=== PATIENT | female | born 1965 | race Caucasian/White ===

== ENCOUNTER 2016-06-01 21:34 | Emergency (ER) | payer BC ==
[2016-06-01 21:59] VITALS: RESP 16
[2016-06-01 23:10] LABS: Basophils # (A) 0.1 k/uL (0-0.2); Basophils % (A) 0 %; CH 27.7; CHCM 33.6; Eosinophils # (A) 0.1 k/uL (0-0.7); Eosinophils % (A) 1 %; HCT 40.1 % (34.0-46.0); HDW 2.99; HGB 13.1 gm/dL (11.4-16.0); Luc # (Auto) 0.25; Luc % (Auto) 2; Lymphocytes # (A) 1.9 k/uL (1.0-4.8); Lymphocytes % (A) 17 %; MCHC 32.6 g/dL (31.0-37.0); MCV 82.7 fL (80.0-100.0); Mean Platelet Volume 6.5; Monocytes # (A) 0.5 k/uL (0-1.0); Monocytes % (A) 4 %; Neutrophils # (A) 8.4 k/uL (1.3-7.7); Neutrophils % (A) 75 %; RBC 4.85 m/uL (3.80-5.40); RDW 14.3 % (11.5-15.5); WBC 11.2 k/uL (3.8-10.6); WBC (Perox) 11.61
[2016-06-01 23:11] LABS: Appearance,Urine Cloudy (Clear); Bilirubin,Urine Negative (Negative); Glucose,Urine (UA) 4+ (Negative); Ketones,Urine Negative (Negative); Leukocyte Esterase,Urine Negative (Negative); Mucus,Urine Moderate /hpf; Nitrite,Urine Negative (Negative); PH, Urine 5.5 (5.0-8.0); Particle Count 10520; Protein,Urine Trace (Negative); RBC,Urine 2 /hpf (0-5); Specific Gravity,Urine 1.023 (1.001-1.035); Squamous Epithelial Cell,Urine 5 /hpf (0-4); UA Billing (MACRO vs. MICRO) MICRO; Urobilinogen,Urine <2.0 mg/dL (<2.0); WBC,Urine 4 /hpf (0-5)
--- NOTE | 2016-06-01 23:17 | ED ---
General Adult HPI - General Source: patient, RN notes reviewed Mode of arrival: ambulatory Limitations: no limitations - History of Present Illness -: month(s) Consistency: constant Improves with: none Worsens with: other (Exertion) Associated Symptoms: other (Generalized fatigue) <Jeremy Steele - Last Filed: 06/01/16 23:14> <Jun Talavera - Last Filed: 06/02/16 00:42> - General Chief complaint: Recheck/Abnormal Lab/Rx Stated complaint: tired, weak Time Seen by Provider: 06/01/16 21:54 - History of Present Illness Initial comments: This patient is a 50-year-old woman who presents with complaint of generalized fatigue. She states she has been having these symptoms intermittently for months to years. She states that she had been doing a little bit better and then over the past approximately one week she has had recurrence of symptoms. She states that it caused her to miss work on Sunday and then she has had a few days where she had to work only partial shifts. When she was not feeling better today she had to leave work and come here. The patient is denying chest pain, dyspnea, diaphoresis, or focal weakness. (Jeremy Steele) - Related Data Home Medications Medication Instructions Recorded Confirmed Gabapentin [Neurontin] 300 mg PO QID 11/27/13 06/01/16 Lisinopril [Zestril] 10 mg PO DAILY 11/27/13 06/01/16 Ranitidine HCl [Zantac] 150 mg PO BID 11/27/13 06/01/16 metFORMIN HCL 1,000 mg PO BID 11/27/13 06/01/16 Albuterol Sulfate [Proventil Hfa] 1 - 2 puff INHALATION Q6HR PRN 12/29/15 Omeprazole 20 mg PO BID 12/29/15 06/01/16 Acetaminophen [Tylenol] 1,000 mg PO BID 02/01/16 06/01/16 Balsalazide Disodium [Colazal] 1,500 mg PO TID 02/01/16 06/01/16 Magnesium Chloride [Slow Mag] 128 mg PO DAILY 02/01/16 06/01/16 sitaGLIPtin [Januvia] 100 mg PO DAILY 02/01/16 06/01/16 Allergies Allergy/AdvReac Type Severity Reaction Status Date / Time No Known Allergies Allergy Verified 06/01/16 22:29 Review of Systems ROS Other: All systems not noted in ROS Statement are negative. Constitutional: Reports: weakness (Mild generalized weakness). Denies: fever, chills Eyes: Denies: vision change Respiratory: Denies: cough, dyspnea Cardiovascular: Denies: chest pain, palpitations, dyspnea on exertion Endocrine: Reports: fatigue Gastrointestinal: Denies: abdominal pain, vomiting, diarrhea Genitourinary: Denies: dysuria, hematuria Musculoskeletal: Denies: back pain Skin: Denies: rash Neurological: Denies: headache, weakness, numbness <Jeremy Steele - Last Filed: 06/01/16 23:14> ROS Other: All systems not noted in ROS Statement are negative. <Jun Talavera - Last Filed: 06/02/16 00:42> ROS Statement: Those systems with pertinent positive or pertinent negative responses have been documented in the HPI. Past Medical History Past Medical History: Diabetes Mellitus, GERD/Reflux, Hypertension, Osteoarthritis (OA), Sleep Apnea/CPAP/BIPAP Additional Past Medical History / Comment(s): hx migraines, bordline high bp, neuropathy, no CPAP, crohns disease, History of Any Multi-Drug Resistant Organisms: None Reported Past Surgical History: Adenoidectomy, Appendectomy, Cholecystectomy, Tonsillectomy, Tubal Ligation Additional Past Surgical History / Comment(s): nasal surgery(Fx), Past Anesthesia/Blood Transfusion Reactions: Motion Sickness Past Psychological History: Anxiety Smoking Status: Former smoker Past Alcohol Use History: Rare Additional Past Alcohol Use History / Comment(s): quit smoking 2014, smoked since age 15, < 1 PPD Past Drug Use History: None Reported - Past Family History Mother Family Medical History: No Reported History <Jeremy Steele - Last Filed: 06/01/16 23:14> General Exam Limitations: no limitations General appearance: alert, in no apparent distress, obese Head exam: Present: atraumatic, normocephalic Eye exam: Present: normal appearance. Absent: scleral icterus, conjunctival injection ENT exam: Present: normal oropharynx Neck exam: Present: normal inspection Respiratory exam: Present: normal lung sounds bilaterally. Absent: respiratory distress, wheezes, rales, rhonchi, stridor Cardiovascular Exam: Present: regular rate, normal rhythm, normal heart sounds. Absent: systolic murmur, diastolic murmur, rubs, gallop GI/Abdominal exam: Present: soft. Absent: distended, tenderness, guarding, rebound, mass Extremities exam: Present: normal inspection, normal capillary refill. Absent: pedal edema, calf tenderness Back exam: Present: normal inspection. Absent: CVA tenderness (R), CVA tenderness (L) Neurological exam: Present: alert. Absent: motor sensory deficit Skin exam: Present: warm, dry, intact, normal color. Absent: rash <Jeremy Steele - Last Filed: 06/01/16 23:14> EKG Findings - EKG Results: EKG: interpreted by ERLINDA BRISENO, sinus rhythm (Rate 98 bpm), normal axis, normal QRS, normal ST/T, no acute changes <Jeremy Steele - Last Filed: 06/01/16 23:14> Medical Decision Making - Lab Data Result diagrams: 06/01/16 22:45 <Jeremy Steele - Last Filed: 06/01/16 23:14> - Lab Data Result diagrams: 06/01/16 22:45 06/01/16 22:45 <Jun Talavera - Last Filed: 06/02/16 00:42> - Lab Data Lab Results 06/01/16 06/01/16 06/01/16 Range/Units 22:45 22:45 22:45 WBC 11.2 H (3.8-10.6) k/uL RBC 4.85 (3.80-5.40) m/uL Hgb 13.1 (11.4-16.0) gm/dL Hct 40.1 (34.0-46.0) % MCV 82.7 (80.0-100.0) fL MCH 27.0 (25.0-35.0) pg MCHC 32.6 (31.0-37.0) g/dL RDW 14.3 (11.5-15.5) % Plt Count 340 (150-450) k/uL Neutrophils % 75 % Lymphocytes % 17 % Monocytes % 4 % Eosinophils % 1 % Basophils % 0 % Neutrophils # 8.4 H (1.3-7.7) k/uL Lymphocytes # 1.9 (1.0-4.8) k/uL Monocytes # 0.5 (0-1.0) k/uL Eosinophils # 0.1 (0-0.7) k/uL Basophils # 0.1 (0-0.2) k/uL Sodium 137 (137-145) mmol/L Potassium 4.4 (3.5-5.1) mmol/L Chloride 100 (98-107) mmol/L Carbon Dioxide 24 (22-30) mmol/L Anion Gap 13 mmol/L BUN 14 (7-17) mg/dL Creatinine 0.60 (0.52-1.04) mg/dL Est GFR (MDRD) Af Amer >60 (>60 ml/min/1.73 sqM) Est GFR (MDRD) Non-Af >60 (>60 ml/min/1.73 sqM) Glucose 175 H (74-99) mg/dL Plasma Lactic Acid Alcon (0.7-2.0) mmol/L Calcium 9.5 (8.4-10.2) mg/dL Magnesium 1.4 L (1.6-2.3) mg/dL Total Bilirubin 0.4 (0.2-1.3) mg/dL AST 22 (14-36) U/L ALT 34 (9-52) U/L Alkaline Phosphatase 102 (38-126) U/L Total Creatine Kinase 58 (30-135) U/L CK-MB (CK-2) 1.0 (0.0-2.4) ng/mL CK-MB (CK-2) Rel Index 1.7 Troponin I <0.012 (0.000-0.034) ng/mL NT-Pro-B Natriuret Pep pg/mL Total Protein 7.8 (6.3-8.2) g/dL Albumin 4.4 (3.5-5.0) g/dL TSH 2.050 (0.465-4.680) mIU/L Urine Color Urine Appearance (Clear) Urine pH (5.0-8.0) Ur Specific [place] (1.001-1.035) Urine Protein (Negative) Urine Glucose (UA) (Negative) Urine Ketones (Negative) Urine Blood (Negative) Urine Nitrate (Negative) Urine Bilirubin (Negative) Urine Urobilinogen (<2.0) mg/dL Ur Leukocyte Esterase (Negative) Urine RBC (0-5) /hpf Urine WBC (0-5) /hpf Ur Squamous Epith Cells (0-4) /hpf Urine Mucus (None) /hpf 06/01/16 06/01/16 06/01/16 Range/Units 22:45 22:45 22:45 WBC (3.8-10.6) k/uL RBC (3.80-5.40) m/uL Hgb (11.4-16.0) gm/dL Hct (34.0-46.0) % MCV (80.0-100.0) fL MCH (25.0-35.0) pg MCHC (31.0-37.0) g/dL RDW (11.5-15.5) % Plt Count (150-450) k/uL Neutrophils % % Lymphocytes % % Monocytes % % Eosinophils % % Basophils % % Neutrophils # (1.3-7.7) k/uL Lymphocytes # (1.0-4.8) k/uL Monocytes # (0-1.0) k/uL Eosinophils # (0-0.7) k/uL Basophils # (0-0.2) k/uL Sodium (137-145) mmol/L Potassium (3.5-5.1) mmol/L Chloride (98-107) mmol/L Carbon Dioxide (22-30) mmol/L Anion Gap mmol/L BUN (7-17) mg/dL Creatinine (0.52-1.04) mg/dL Est GFR (MDRD) Af Amer (>60 ml/min/1.73 sqM) Est GFR (MDRD) Non-Af (>60 ml/min/1.73 sqM) Glucose (74-99) mg/dL Plasma Lactic Acid Alcon 1.9 (0.7-2.0) mmol/L Calcium (8.4-10.2) mg/dL Magnesium (1.6-2.3) mg/dL Total Bilirubin (0.2-1.3) mg/dL AST (14-36) U/L ALT (9-52) U/L Alkaline Phosphatase (38-126) U/L Total Creatine Kinase (30-135) U/L CK-MB (CK-2) (0.0-2.4) ng/mL CK-MB (CK-2) Rel Index Troponin I (0.000-0.034) ng/mL NT-Pro-B Natriuret Pep 26 pg/mL Total Protein (6.3-8.2) g/dL Albumin (3.5-5.0) g/dL TSH (0.465-4.680) mIU/L Urine Color Dark Yellow Urine Appearance Cloudy H (Clear) Urine pH 5.5 (5.0-8.0) Ur Specific [place] 1.023 (1.001-1.035) Urine Protein Trace H (Negative) Urine Glucose (UA) 4+ H (Negative) Urine Ketones Negative (Negative) Urine Blood Negative (Negative) Urine Nitrate Negative (Negative) Urine Bilirubin Negative (Negative) Urine Urobilinogen <2.0 (<2.0) mg/dL Ur Leukocyte Esterase Negative (Negative) Urine RBC 2 (0-5) /hpf Urine WBC 4 (0-5) /hpf Ur Squamous Epith Cells 5 H (0-4) /hpf Urine Mucus Moderate H (None) /hpf Disposition <Jeremy Steele - Last Filed: 06/01/16 23:14> Time of Disposition: 00:41 <Jun Talavera - Last Filed: 06/02/16 00:42> Clinical Impression: Generalized weakness, Hypomagnesemia Disposition: HOME SELF-CARE Condition: Good Instructions: Weakness (ED) Referrals: Jeanine Peña MD [Primary Care Provider] - 1-2 days
[2016-06-01 23:22] LABS: ALT 34 U/L (9-52); AST 22 U/L (14-36); Alkaline Phosphatase 102 U/L (38-126); Anion Gap 13 mmol/L; Blood Urea Nitrogen 14 mg/dL (7-17); Calcium 9.5 mg/dL (8.4-10.2); Carbon Dioxide 24 mmol/L (22-30); Chloride 100 mmol/L (98-107); Glucose 175 mg/dL (74-99); Magnesium 1.4 mg/dL (1.6-2.3); Non-African American GFR(MDRD) >60 (>60 ml/min/1.73 sqM); Potassium 4.4 mmol/L (3.5-5.1); Sodium 137 mmol/L (137-145); Total Bilirubin 0.4 mg/dL (0.2-1.3); Total Protein 7.8 g/dL (6.3-8.2)
[2016-06-01 23:29] LABS: Creatine Kinase 58 U/L (30-135)
[2016-06-01 23:42] LABS: Troponin I <0.012 ng/mL (0.000-0.034)
[2016-06-01] MEDS: SODIUM CHLORIDE 0.9% 500 ML IV ONE (23:51)
[2016-06-01 23:55] VITALS: BP 120/56; PULSE 90; TEMP 98.4
--- NOTE | 2016-06-01 23:59 | XR ---
EXAMINATION TYPE: XR chest 1V portable DATE OF EXAM: 06/01/2016 10:58 PM COMPARISON: 12/29/2015. HISTORY: History of fatigue TECHNIQUE: Single frontal view of the chest is obtained. FINDINGS: Mild opacities noted in the right lung base and is suggestive of mild right-sided pleural effusion an d right basilar lung infiltrate and atelectasis. This could also be related to artifact from the supe rimposing breast tissue. Rest of the lungs are clear. The cardiac silhouette size is within normal limits. The osseous structures are intact. IMPRESSION: 1. Suspected mild right-sided pleural effusion and right basilar lung infiltrate and atelectasis.
[2016-06-02] MEDS: MAGNESIUM SULFATE-D5W PMX 1 GM in DEXTROSE/WATER 1 100ML.BAG IVPB ONE (00:22)
== END 2016-06-02 01:25 | disposition home or self-care (01) ==
LOC: EC 21:34
DX: R53.1 Weakness (principal); E83.42 Hypomagnesemia; E11.40 Type 2 diabetes mellitus with diabetic neuropathy, unspecified; I10 Essential (primary) hypertension; K21.9 Gastro-esophageal reflux disease without esophagitis; G47.30 Sleep apnea, unspecified; Z99.89 Dependence on other enabling machines and devices; Z79.899 Other long term (current) drug therapy; Z79.84 Long term (current) use of oral hypoglycemic drugs; Z87.891 Personal history of nicotine dependence
CPT/HCPCS: 36415; 71010; 80053; 81001; 82550; 82553; 83605; 83735; 83880; 84443; 84484; 85025; 93005; 96365; 99285

== ENCOUNTER → 2016-07-04 | Outpatient (CLI) | payer BC ==
--- NOTE | 2016-07-04 14:15 | XR ---
EXAMINATION TYPE: XR chest 2V DATE OF EXAM: 07/04/2016 2:08 PM COMPARISON: 06/01/2016 TECHNIQUE: PA and lateral views submitted. HISTORY: Abnormal chest x-ray FINDINGS: The lungs are clear and there is no pneumothorax, pleural effusion, or focal pneumonia. Heart size is stable. Degenerative change of the spine. IMPRESSION: 1. No acute process.
== END | disposition home or self-care (01) ==
LOC: RADXRMAIN 13:50
PROVIDERS: ATTEND Family Medicine
DX: R93.8 Abnormal findings on diagnostic imaging of other specified body structures (principal)
CPT/HCPCS: 71020

== ENCOUNTER 2016-07-26 17:37 | Emergency (ER) | payer BC, OTHER ==
[2016-07-26 18:02] VITALS: PULSE 82; RESP 20; TEMP 97.9
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
== END 2016-07-26 21:19 | disposition left against medical advice (07) ==
LOC: EC 17:37
DX: S09.90XA Unspecified injury of head, initial encounter (principal); S50.812A Abrasion of left forearm, initial encounter; S80.212A Abrasion, left knee, initial encounter; M54.2 Cervicalgia; E11.9 Type 2 diabetes mellitus without complications; K21.9 Gastro-esophageal reflux disease without esophagitis; E78.5 Hyperlipidemia, unspecified; I10 Essential (primary) hypertension; M19.90 Unspecified osteoarthritis, unspecified site; F41.9 Anxiety disorder, unspecified; Z87.891 Personal history of nicotine dependence; Z79.84 Long term (current) use of oral hypoglycemic drugs; Z79.899 Other long term (current) drug therapy; Z86.69 Personal history of other diseases of the nervous system and sense organs; V49.50XA Passenger injured in collision with unspecified motor vehicles in traffic accident, initial encounter; Y92.410 Unspecified street and highway as the place of occurrence of the external cause
CPT/HCPCS: 70450; 72125; 99284

== ENCOUNTER 2016-08-25 20:42 | Emergency (ER) | payer BC ==
[2016-08-25 21:02] VITALS: BP 154/81; PULSE 110; RESP 20
[2016-08-25] MEDS ORDERED: ACETAMINOPHEN TAB 500 MG TAB PO STA (21:03)
--- NOTE | 2016-08-25 21:23 | XR ---
EXAMINATION TYPE: XR chest 2V DATE OF EXAM: 08/25/2016 9:18 PM COMPARISON: 07/04/2016. HISTORY: Shortness of breath and congestion. TECHNIQUE: Frontal and lateral views of the chest are obtained. FINDINGS: There is no focal air space opacity, pleural effusion, or pneumothorax seen. The cardiac silhouette size is within normal limits. The osseous structures are intact. IMPRESSION: No acute cardiopulmonary process, unchanged from the prior.
--- NOTE | 2016-08-25 21:25 | ED ---
URI HPI - General Chief Complaint: Upper Respiratory Infection Stated Complaint: Upper Resp/Dizzy Time Seen by Provider: 08/25/16 21:03 Source: patient, RN notes reviewed, old records reviewed Mode of arrival: ambulatory Limitations: no limitations - History of Present Illness Initial Comments: This is a 51 year old female with chief complaint of sore thraot and congestion for 4 days. She states that a coworker is diagnosed with strep, therefore she is concerned. Patient reports she has had a fever, denies recent motrin or tylenol. Denies any nausea or vomiting. Patient denies any headache. - Related Data Home Medications Medication Instructions Recorded Confirmed Gabapentin [Neurontin] 300 mg PO QID 11/27/13 08/25/16 Lisinopril [Zestril] 10 mg PO DAILY 11/27/13 08/25/16 Ranitidine HCl [Zantac] 150 mg PO BID 11/27/13 08/25/16 metFORMIN HCL 1,000 mg PO BID 11/27/13 08/25/16 Omeprazole 20 mg PO BID 12/29/15 08/25/16 Acetaminophen [Tylenol] 1,000 mg PO BID 02/01/16 08/25/16 Balsalazide Disodium [Colazal] 1,500 mg PO TID 02/01/16 08/25/16 Magnesium Chloride [Slow Mag] 128 mg PO DAILY 02/01/16 08/25/16 sitaGLIPtin [Januvia] 100 mg PO DAILY 02/01/16 08/25/16 Glimepiride [Amaryl] 4 mg PO AC-BRKFST 06/20/16 08/25/16 Previous Rx's Medication Instructions Recorded Azithromycin [Zithromax Z-pack] 250 mg PO DIRECTED #6 tab 08/25/16 Allergies Allergy/AdvReac Type Severity Reaction Status Date / Time No Known Allergies Allergy Verified 08/25/16 21:26 Review of Systems ROS Statement: Those systems with pertinent positive or pertinent negative responses have been documented in the HPI. ROS Other: All systems not noted in ROS Statement are negative. Past Medical History Past Medical History: Diabetes Mellitus, GERD/Reflux, Hypertension, Osteoarthritis (OA), Sleep Apnea/CPAP/BIPAP Additional Past Medical History / Comment(s): hx migraines, neuropathy, no CPAP , crohns disease, carpal tunnel, hiatal hernia History of Any Multi-Drug Resistant Organisms: None Reported Past Surgical History: Adenoidectomy, Appendectomy, Cholecystectomy, Tonsillectomy, Tubal Ligation Additional Past Surgical History / Comment(s): nasal surgery(Fx), Past Anesthesia/Blood Transfusion Reactions: Motion Sickness Past Psychological History: Anxiety Smoking Status: Former smoker Past Alcohol Use History: None Reported Additional Past Alcohol Use History / Comment(s): quit smoking 2014, smoked since age 15, < 1 PPD Past Drug Use History: None Reported - Past Family History Mother Family Medical History: No Reported History General Exam - General Exam Comments Initial Comments: Well appearing 51 year old female, no distress. Limitations: no limitations General appearance: alert, in no apparent distress Head exam: Present: atraumatic, normocephalic, normal inspection Eye exam: Present: normal appearance, PERRL, EOMI. Absent: scleral icterus, conjunctival injection, periorbital swelling ENT exam: Present: normal exam, mucous membranes moist. Absent: normal oropharynx (erythematous oropharynx.) Neck exam: Present: normal inspection. Absent: tenderness, meningismus, lymphadenopathy Respiratory exam: Present: normal lung sounds bilaterally. Absent: respiratory distress, wheezes, rales, rhonchi, stridor Cardiovascular Exam: Present: regular rate, normal rhythm, normal heart sounds. Absent: systolic murmur, diastolic murmur, rubs, gallop, clicks GI/Abdominal exam: Present: soft, normal bowel sounds. Absent: distended, tenderness, guarding, rebound, rigid Extremities exam: Present: normal inspection, full ROM, normal capillary refill. Absent: tenderness, pedal edema, joint swelling, calf tenderness Back exam: Present: normal inspection Neurological exam: Present: alert, oriented X3, CN II-XII intact Psychiatric exam: Present: normal affect, normal mood Course Vital Signs 08/25/16 20:59 Temperature 100 F H Pulse Rate 110 H Respiratory 20 Rate Blood Pressure 154/81 O2 Sat by Pulse 95 Oximetry Medical Decision Making - Medical Decision Making 51 year old female, with sore throat and fever for 3 days. She has a fever at this time, patient given tylenol. Patient does have erythematous oropharnyx. Patient lungs are clear, no wheezing, rhonchi. - Lab Data Lab Results 08/25/16 Range/Units 21:27 Group A Strep Rapid Negative (Negative) - Radiology Data CXR is negative. Disposition Clinical Impression: Upper respiratory infection Disposition: HOME SELF-CARE Condition: Good Instructions: Upper Respiratory Infection (ED) Additional Instructions: Patient should take Coricidin HBP for decongestant symptoms. Patient should completely antibiotic prescription. Follow-up with primary care provider within the next 2-3 days of symptoms continue to persist. Return to the emergency department if any alarming signs or symptoms occur. Prescriptions: Azithromycin [Zithromax Z-pack] 250 mg PO DIRECTED #6 tab Referrals: Jeanine Peña MD [Primary Care Provider] - 1-2 days Time of Disposition: 21:25
[2016-08-25 21:47] VITALS: TEMP 100
== END 2016-08-25 21:45 | disposition home or self-care (01) ==
LOC: EC 20:42
DX: J06.9 Acute upper respiratory infection, unspecified (principal); E11.9 Type 2 diabetes mellitus without complications; I10 Essential (primary) hypertension; M19.90 Unspecified osteoarthritis, unspecified site; F41.9 Anxiety disorder, unspecified; Z87.891 Personal history of nicotine dependence; Z79.899 Other long term (current) drug therapy; Z79.84 Long term (current) use of oral hypoglycemic drugs
CPT/HCPCS: 71020; 87081; 87430; 99283

== ENCOUNTER → 2016-10-03 | Outpatient (CLI) | payer BC ==
[2016-10-03 11:25] LABS: ALT 28 U/L (9-52); AST 19 U/L (14-36); Alkaline Phosphatase 103 U/L (38-126); Blood Urea Nitrogen 12 mg/dL (7-17); Calcium 9.2 mg/dL (8.4-10.2); HDL Cholesterol 43 mg/dL (40-60); Non-African American GFR(MDRD) >60 (>60 ml/min/1.73 sqM); Total Bilirubin 0.3 mg/dL (0.2-1.3)
[2016-10-03 12:06] LABS: Anion Gap 10 mmol/L; Carbon Dioxide 26 mmol/L (22-30); Chloride 102 mmol/L (98-107); Cholesterol 147 mg/dL (<200); Glucose 171 mg/dL (74-99); Potassium 4.5 mmol/L (3.5-5.1); Sodium 138 mmol/L (137-145); Total Protein 6.9 g/dL (6.3-8.2); Triglycerides 114 mg/dL (<150)
== END ==
LOC: LABWHC1 10:34
PROVIDERS: ATTEND Internal Medicine Endocrinology, Diabetes & Metabolism
DX: E11.65 Type 2 diabetes mellitus with hyperglycemia (principal); E04.1 Nontoxic single thyroid nodule
CPT/HCPCS: 36415; 80053; 80061; 82043; 84439; 84443

== ENCOUNTER → 2016-10-04 | Outpatient (CLI) | payer BC ==
--- NOTE | 2016-10-04 14:03 | US ---
EXAMINATION TYPE: US thyroid st tissue head/neck DATE OF EXAM: 10/04/2016 COMPARISON: 05/21/2015 CLINICAL HISTORY: E04.1 THYROID NODULE. Left neck thyroid nodule per patient's physician. GLAND SIZE: Right Lobe: 4.9 x 1.8 x 1.7 cm Overall Parenchyma: heterogenous Left Lobe: 5.5 x 2.0 x 1.9 cm Overall Parenchyma: heterogeneous Isthmus Thickness: 0.4 cm NODULES RIGHT: # of nodules measured on right: no discreet nodules noted in heterogeneous thyroid with nodu lar borders. LEFT: # of nodules measured on left: 1. 0.6 X 0.7 x 0.5 cm isoechoic solid nodule within cystic area at the mid pole with well-defined m argins. This nodule is wider than tall and shows no intranodular vascularity. Prior size: no prior US ISTHMUS: # of nodules measured in the isthmus: 0 Bilateral neck scanned, no evidence of lymphadenopathy. IMPRESSION: Nonspecific nodularity.
== END | disposition home or self-care (01) ==
LOC: RADUSWWP 13:19
PROVIDERS: ATTEND Internal Medicine Endocrinology, Diabetes & Metabolism
DX: E04.1 Nontoxic single thyroid nodule (principal)
CPT/HCPCS: 76536

== ENCOUNTER → 2017-01-19 | Outpatient (CLI) | payer BC ==
[2017-01-19 14:48] LABS: ALT 30 U/L (9-52); AST 22 U/L (14-36); Alkaline Phosphatase 113 U/L (38-126); Anion Gap 10 mmol/L; Blood Urea Nitrogen 9 mg/dL (7-17); Calcium 8.9 mg/dL (8.4-10.2); Carbon Dioxide 23 mmol/L (22-30); Chloride 101 mmol/L (98-107); Cholesterol 139 mg/dL (<200); Glucose 221 mg/dL (74-99); HDL Cholesterol 36 mg/dL (40-60); Non-African American GFR(MDRD) >60 (>60 ml/min/1.73 sqM); Potassium 4.3 mmol/L (3.5-5.1); Sodium 134 mmol/L (137-145); Total Bilirubin 0.3 mg/dL (0.2-1.3); Total Protein 7.1 g/dL (6.3-8.2)
== END | disposition home or self-care (01) ==
LOC: LABWHC1 14:02
PROVIDERS: ATTEND Family Medicine
DX: E78.2 Mixed hyperlipidemia (principal); E87.1 Hypo-osmolality and hyponatremia; I10 Essential (primary) hypertension
CPT/HCPCS: 36415; 80053; 80061; 83721

== ENCOUNTER 2017-02-18 17:10 | Emergency (ER) | payer BC ==
[2017-02-18 17:56] VITALS: BP 134/77; PULSE 86; RESP 18; TEMP 97.7
[2017-02-18] MEDS ORDERED: SODIUM CHLORIDE 0.9% 500 ML IV STA (18:16)
[2017-02-18 19:00] LABS: Basophils % (A) 0 %; Eosinophils # (A) 0.1 k/uL (0-0.7); Eosinophils % (A) 2 %; HCT 37.3 % (34.0-46.0); HDW 2.98; HGB 11.8 gm/dL (11.4-16.0); Hypochromasia Slight; Luc # (Auto) 0.08; Luc % (Auto) 1; Lymphocytes # (A) 1.6 k/uL (1.0-4.8); Lymphocytes % (A) 19 %; MCH 25.7 pg (25.0-35.0); MCHC 31.5 g/dL (31.0-37.0); MCV 81.5 fL (80.0-100.0); Mean Platelet Volume 6.5; Monocytes # (A) 0.5 k/uL (0-1.0); Monocytes % (A) 6 %; Neutrophils # (A) 5.8 k/uL (1.3-7.7); Neutrophils % (A) 72 %; RBC 4.58 m/uL (3.80-5.40); RDW 14.6 % (11.5-15.5); WBC 8.1 k/uL (3.8-10.6)
[2017-02-18 19:10] LABS: ALT 33 U/L (9-52); AST 34 U/L (14-36); Alkaline Phosphatase 85 U/L (38-126); Anion Gap 13 mmol/L; Blood Urea Nitrogen 10 mg/dL (7-17); Calcium 9.1 mg/dL (8.4-10.2); Carbon Dioxide 25 mmol/L (22-30); Chloride 100 mmol/L (98-107); Glucose 184 mg/dL (74-99); Non-African American GFR(MDRD) >60 (>60 ml/min/1.73 sqM); Potassium 4.3 mmol/L (3.5-5.1); Sodium 138 mmol/L (137-145); Total Bilirubin 0.3 mg/dL (0.2-1.3); Total Protein 7.1 g/dL (6.3-8.2)
--- NOTE | 2017-02-18 20:01 | ED ---
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 Patient states that while on the job she a near syncopal episode felt dizzy and nauseated but did not pass out. Reports patient reports this has happened in the past. Patient's feeling better at this time. - Related Data Home Medications Medication Instructions Recorded Confirmed Gabapentin [Neurontin] 300 mg PO QID 11/27/13 02/18/17 Lisinopril [Zestril] 10 mg PO DAILY 11/27/13 02/18/17 Ranitidine HCl [Zantac] 150 mg PO BID 11/27/13 02/18/17 metFORMIN HCL 1,000 mg PO BID 11/27/13 02/18/17 Omeprazole 20 mg PO BID 12/29/15 02/18/17 Balsalazide Disodium [Colazal] 1,500 mg PO TID 02/01/16 02/18/17 Magnesium Chloride [Slow Mag] 128 mg PO DAILY 02/01/16 02/18/17 sitaGLIPtin [Januvia] 100 mg PO DAILY 02/01/16 02/18/17 Glimepiride [Amaryl] 4 mg PO [id number]-[id number] 06/20/16 02/18/17 Allergies Allergy/AdvReac Type Severity Reaction Status Date / Time No Known Allergies Allergy Verified 02/18/17 18:32 Review of Systems ROS Statement: Those systems with pertinent positive or pertinent negative responses have been documented in the HPI. Review of systems no headache or visual acuity changes. No chest pain or shortness of breath. The patient has Crohn's is that she always has mild abdominal discomfort and always has diarrhea. Denies feeling dehydrated. States she hydrates himself throughout the day. No neuro deficits or complaints. All systems are reviewed. Past medical problems significant for non-insulin diabetes mellitus, GERD, hypertension, osteoarthritis, sleep apnea for which she uses a CPAP machine. He reports a history of Crohn's disease. Also history of migraines and neuropathy. Patient also has carpal tunnel which she receives shots. Her surgeries include tonsils and adenoids, appendectomy, cholecystectomy and tubal ligation and nasal surgery for nasal fracture. Patient denies any cancers in her family that she knows about. She denies any ALLERGIES she quit smoking 2 years ago very rarely drinks alcohol. ROS Other: All systems not noted in ROS Statement are negative. Past Medical History Past Medical History: Diabetes Mellitus, GERD/Reflux, Hypertension, Osteoarthritis (OA), Sleep Apnea/CPAP/BIPAP Additional Past Medical History / Comment(s): hx migraines, neuropathy, no CPAP , crohns disease, carpal tunnel, hiatal hernia History of Any Multi-Drug Resistant Organisms: None Reported Past Surgical History: Adenoidectomy, Appendectomy, Cholecystectomy, Tonsillectomy, Tubal Ligation Additional Past Surgical History / Comment(s): nasal surgery(Fx), Past Anesthesia/Blood Transfusion Reactions: Motion Sickness Past Psychological History: Anxiety Smoking Status: Former smoker Past Alcohol Use History: Rare Past Drug Use History: None Reported - Past Family History Mother Family Medical History: No Reported History General Exam - General Exam Comments Initial Comments: General: The patient is awake and alert, in no distress, and does not appear acutely ill. Feeling better at this time. She states she felt dizzy and mildly nauseated but no headache or palpitations. Vital signs show temperature 97.7 pulse 86 respiratory rate 18 pulse ox 97% room air blood pressure 134/77 Eye: Pupils are equal, round and reactive to light, extra-ocular movements are intact ; there is normal conjunctiva bilaterally. No signs of icterus. Ears, nose, mouth and throat: There are moist mucous membranes and no oral lesions. Neck: The neck is supple, there is no tenderness, no anterior cervical lymphadenopathy , thyroid not enlarged. Cardiovascular: There is a regular rate and rhythm. No murmur, rub or gallop is appreciated. Respiratory: Lungs are clear to auscultation, respirations are non-labored, breath sounds are equal. No wheezes, stridor, rales, or rhonchi. Gastrointestinal: Soft, non-distended, non-tender abdomen without masses or organomegaly noted. There is no rebound or guarding present. No CVA tenderness. Bowel sounds are unremarkable. History of Crohn's. Back: There is no tenderness to palpation in the midline. There is no obvious deformity. No rashes noted. Musculoskeletal: Normal ROM, no tenderness, There is no pedal edema. There is no calf tenderness or swelling. Sensation intact. Pulses equal bilaterally 2+. Neurological: CN II-XII intact, There are no obvious motor or sensory deficits. Coordination appears grossly intact. Speech is normal. No focal or lateralizing findings. Skin: Skin is warm and dry and no rashes or lesions are noted. Psychiatric: Cooperative, appropriate mood & affect, normal judgment. Limitations: no limitations Course Vital Signs 02/18/17 17:51 Temperature 97.7 F Pulse Rate 86 Respiratory 18 Rate Blood Pressure 134/77 O2 Sat by Pulse 97 Oximetry EKG Findings - EKG Comments: EKG Findings:: EKG was done and reviewed at 1843 showing normal sinus rhythm no acute ST elevation no ectopy. No ischemic changes. Rate 87 MS interval 148 QRS 72 QT 346 QTc 416. This EKG was compared to one done on 12/29/2015 and they 're very similar. Dr. Hammer Medical Decision Making - Medical Decision Making Medical decision making patient's labs show white count of 8 hemoglobin 11 hematocrit of 37 with a potassium 4.3 BUN 10 creatinine 0.57 GFR greater than 60. Glucose 189. Discussed syncope and presyncopal symptoms. Cardiac, glucose etc. At this time the patient feels great states she is very hungry will be going home. Her son will be driving. She's been advised follow-up with family physician return emergency room as needed. Advised to change positions slowly. - Lab Data Result diagrams: 02/18/17 18:50 02/18/17 18:50 Lab Results 02/18/17 02/18/17 Range/Units 18:50 18:50 WBC 8.1 (3.8-10.6) k/uL RBC 4.58 (3.80-5.40) m/uL Hgb 11.8 (11.4-16.0) gm/dL Hct 37.3 (34.0-46.0) % MCV 81.5 (80.0-100.0) fL MCH 25.7 (25.0-35.0) pg MCHC 31.5 (31.0-37.0) g/dL RDW 14.6 (11.5-15.5) % Plt Count 307 (150-450) k/uL Neutrophils % 72 % Lymphocytes % 19 % Monocytes % 6 % Eosinophils % 2 % Basophils % 0 % Neutrophils # 5.8 (1.3-7.7) k/uL Lymphocytes # 1.6 (1.0-4.8) k/uL Monocytes # 0.5 (0-1.0) k/uL Eosinophils # 0.1 (0-0.7) k/uL Basophils # 0.0 (0-0.2) k/uL Hypochromasia Slight Sodium 138 (137-145) mmol/L Potassium 4.3 (3.5-5.1) mmol/L Chloride 100 (98-107) mmol/L Carbon Dioxide 25 (22-30) mmol/L Anion Gap 13 mmol/L BUN 10 (7-17) mg/dL Creatinine 0.57 (0.52-1.04) mg/dL Est GFR (MDRD) Af Amer >60 (>60 ml/min/1.73 sqM) Est GFR (MDRD) Non-Af >60 (>60 ml/min/1.73 sqM) Glucose 184 H (74-99) mg/dL Calcium 9.1 (8.4-10.2) mg/dL Total Bilirubin 0.3 (0.2-1.3) mg/dL AST 34 (14-36) U/L ALT 33 (9-52) U/L Alkaline Phosphatase 85 (38-126) U/L Total Protein 7.1 (6.3-8.2) g/dL Albumin 3.8 (3.5-5.0) g/dL Disposition Clinical Impression: Dizziness, Near syncope Disposition: HOME SELF-CARE Condition: Stable Instructions: Near Syncope (ED), Lightheadedness (ED) Additional Instructions: Stay hydrated. Change positions slowly. Follow-up with family physician for further evaluation return emergency room as needed Referrals: Jeanine Peña MD [Primary Care Provider] - 1-2 days Time of Disposition: 20:05
== END 2017-02-18 20:18 | disposition home or self-care (01) ==
LOC: EC 17:10
DX: R55 Syncope and collapse (principal); E11.9 Type 2 diabetes mellitus without complications; K21.9 Gastro-esophageal reflux disease without esophagitis; I10 Essential (primary) hypertension; G47.30 Sleep apnea, unspecified; Z99.89 Dependence on other enabling machines and devices; Z87.891 Personal history of nicotine dependence; Z79.84 Long term (current) use of oral hypoglycemic drugs; Z79.899 Other long term (current) drug therapy
CPT/HCPCS: 36415; 80053; 85025; 93005; 99285

== ENCOUNTER 2017-04-29 22:53 | Emergency (ER) | payer BC ==
[2017-04-29] MEDS ORDERED: ORPHENADRINE 30 MG/ML 2 ML VIAL IM STA (23:14)
[2017-04-29] MEDS ORDERED: KETOROLAC 60 MG/2 ML VIAL IM STA (23:14)
--- NOTE | 2017-04-29 23:40 | ED ---
General Adult HPI - General Chief complaint: Back Pain/Injury Stated complaint: Back Pain Time Seen by Provider: 04/29/17 23:05 Source: patient, RN notes reviewed Mode of arrival: ambulatory Limitations: no limitations - History of Present Illness Initial comments: 51-year-old female who presents emergency room today with a chief complaint of right-sided lower back pain. Denies any injury or trauma. Does admit that is worse with movements. States that when she is sitting still. Patient denies any bowel or bladder incontinence retention. Denies any saddle anesthesia. Patient states is not taking any medication for that she's not happening at home. Patient denies any lunch associated symptoms. Patient denies any recent fever, chills, shortness of breath, chest pain, abdominal pain, nausea or vomiting, numbness or tingling, dysuria or hematuria, constipation, headaches or visual changes, or any other complaints. - Related Data Home Medications Medication Instructions Recorded Confirmed Lisinopril [Zestril] 10 mg PO DAILY 11/27/13 04/29/17 Ranitidine HCl [Zantac] 150 mg PO BID 11/27/13 04/29/17 metFORMIN HCL 1,000 mg PO BID 11/27/13 04/29/17 Omeprazole 20 mg PO BID 12/29/15 04/29/17 Balsalazide Disodium [Colazal] 2,250 mg PO TID 02/01/16 04/29/17 sitaGLIPtin [Januvia] 100 mg PO DAILY 02/01/16 04/29/17 Glimepiride [Amaryl] 4 mg PO DAILY 06/20/16 04/29/17 Gabapentin [Neurontin] 300 mg PO QID 02/26/17 04/29/17 Dicyclomine [Bentyl] 10 mg PO BID 04/29/17 04/29/17 Magnesium Chloride [Slow Mag] 128 mg PO DAILY 04/29/17 04/29/17 Previous Rx's Medication Instructions Recorded Ibuprofen [Motrin] 600 mg PO Q6HR PRN #40 day 04/30/17 Orphenadrine [Norflex] 100 mg PO Q12H #20 tablet.er 04/30/17 Allergies Allergy/AdvReac Type Severity Reaction Status Date / Time No Known Allergies Allergy Verified 04/29/17 23:23 Review of Systems ROS Statement: Those systems with pertinent positive or pertinent negative responses have been documented in the HPI. ROS Other: All systems not noted in ROS Statement are negative. Past Medical History Past Medical History: Diabetes Mellitus, GERD/Reflux, Hypertension, Osteoarthritis (OA), Sleep Apnea/CPAP/BIPAP Additional Past Medical History / Comment(s): HX OF HEADACHES, NEUROPATHY LEGS & FEET, USES C-PAP, CROHNS DISEASE., CARPAL TUNNEL SYNDROME, HIATLA HERNIA., LOW BACK PAIN, THYROID NODULE., TAKES MAGNESIUM FOR LEG CRAMPS.,DIARRHEA., RIGHT LEG GIVES OUT AT TIMES. IBS History of Any Multi-Drug Resistant Organisms: None Reported Past Surgical History: Adenoidectomy, Appendectomy, Cholecystectomy, Tonsillectomy, Tubal Ligation Additional Past Surgical History / Comment(s): nasal surgery(Fx), SINUS SURGERY WITH TONSILLS. Past Anesthesia/Blood Transfusion Reactions: No Reported Reaction Past Psychological History: Anxiety Smoking Status: Former smoker Past Alcohol Use History: Rare Past Drug Use History: None Reported - Past Family History Mother Family Medical History: No Reported History Father Additional Family Medical History / Comment(s): ANEURYSM General Exam - General Exam Comments Initial Comments: General: The patient is awake and alert, in no distress, and does not appear acutely ill. Eye: Pupils are equal, round and reactive to light, extra-ocular movements are intact. No nystagmus. There is normal conjunctiva bilaterally. No signs of icterus. Ears, nose, mouth and throat: There are moist mucous membranes and no oral lesions. Neck: The neck is supple, there is no tenderness or JVD. Cardiovascular: There is a regular rate and rhythm. No murmur, rub or gallop is appreciated. Respiratory: Lungs are clear to auscultation, respirations are non-labored, breath sounds are equal. No wheezes, stridor, rales, or rhonchi. Musculoskeletal: No appearance of the thoracic, lumbar spine with no step-offs or deformities. Tenderness paravertebrally to the right side of the lower lumbar spine. Strength 5/5. Sensation intact. Pulses equal bilaterally 2+. Neurological: A&O x 3. CN II-XII intact, There are no obvious motor or sensory deficits. Coordination appears grossly intact. Speech is normal. Skin: Skin is warm and dry and no rashes or lesions are noted. Psychiatric: Cooperative, appropriate mood & affect, normal judgment. Limitations: no limitations Course Vital Signs 04/29/17 22:59 Temperature 97.2 F L Pulse Rate 79 Respiratory 18 Rate Blood Pressure 129/82 O2 Sat by Pulse 98 Oximetry Medical Decision Making - Medical Decision Making Patient's x-ray reviewed is negative for any acute fracture dislocation. Results were discussed with the patient. She is feeling better after medications of Toradol and Norflex urine emergency room. Patient will be discharged home with similar medications of ibuprofen along with Norflex. Advised that the muscle relaxant may make her drowsy. Advised to follow-up the family doctor. She states she is working and given MRI of her lower back. Advised to return to emergency room if any symptoms increase or worsen or for any other concerns. Disposition Clinical Impression: Acute low back pain Disposition: HOME SELF-CARE Condition: Good Instructions: Acute Low Back Pain (ED) Additional Instructions: Please use medication as discussed. Please follow-up with family doctor in the next 2 days of symptoms have not improved. Please return to emergency room if the symptoms increase or worsen or for any other concerns. Prescriptions: Ibuprofen [Motrin] 600 mg PO Q6HR PRN #40 day PRN Reason: Pain Orphenadrine [Norflex] 100 mg PO Q12H #20 tablet.er Referrals: Jeanine Peña MD [Primary Care Provider] - 1-2 days Time of Disposition: 00:06
--- NOTE | 2017-04-30 | XR ---
EXAMINATION TYPE: XR lumbar spine 2 or 3V DATE OF EXAM: 04/29/2017 COMPARISON: NONE HISTORY: Back pain TECHNIQUE: 3 views FINDINGS: Lumbar vertebra have normal alignment. Disc spaces are fairly normal. Posterior elements ar e intact. Sacroiliac joints appear normal. There is no evidence of a compression fracture. IMPRESSION: Negative lumbar spine exam.
[2017-04-30 00:20] VITALS: BP 136/80; PULSE 82; RESP 20; TEMP 98.7
== END 2017-04-30 00:18 | disposition home or self-care (01) ==
LOC: EC 22:53
DX: M54.5 Low back pain (principal); E11.9 Type 2 diabetes mellitus without complications; K21.9 Gastro-esophageal reflux disease without esophagitis; I10 Essential (primary) hypertension; G47.30 Sleep apnea, unspecified; G62.9 Polyneuropathy, unspecified; K50.90 Crohn's disease, unspecified, without complications; F41.9 Anxiety disorder, unspecified; K58.9 Irritable bowel syndrome, unspecified; Z87.891 Personal history of nicotine dependence; Z79.84 Long term (current) use of oral hypoglycemic drugs; Z79.899 Other long term (current) drug therapy
CPT/HCPCS: 72100; 99283; 96372 ×2; J2360; J1885

== ENCOUNTER → 2017-05-29 | Outpatient (CLI) | payer BC ==
[2017-05-29 15:38] LABS: ALT 24 U/L (9-52); AST 19 U/L (14-36); Albumin 4.1 g/dL (3.5-5.0); Alkaline Phosphatase 99 U/L (38-126); Anion Gap 10 mmol/L; Blood Urea Nitrogen 14 mg/dL (7-17); Calcium 9.4 mg/dL (8.4-10.2); Carbon Dioxide 29 mmol/L (22-30); Chloride 97 mmol/L (98-107); Cholesterol 150 mg/dL (<200); Glucose 163 mg/dL (74-99); HDL Cholesterol 42 mg/dL (40-60); LDL Cholesterol,Calculated 91 mg/dL (0-99); Potassium 4.6 mmol/L (3.5-5.1); Sodium 136 mmol/L (137-145); Total Bilirubin 0.4 mg/dL (0.2-1.3); Total Protein 7.6 g/dL (6.3-8.2); Triglycerides 87 mg/dL (<150)
[2017-05-29 19:57] LABS: Hemoglobin A1C 8.2 % (4.0-6.0)
== END | disposition home or self-care (01) ==
LOC: LABWHC1 14:28
PROVIDERS: ATTEND Internal Medicine Endocrinology, Diabetes & Metabolism
DX: E11.65 Type 2 diabetes mellitus with hyperglycemia (principal)
CPT/HCPCS: 36415; 80053; 80061; 82043; 82570; 83036

== ENCOUNTER → 2018-02-22 | Outpatient (CLI) | payer BC, OTHER ==
[2018-02-22 12:55] LABS: ALT 15 U/L (9-52); AST 13 U/L (14-36); Albumin 4.1 g/dL (3.5-5.0); Alkaline Phosphatase 99 U/L (38-126); Anion Gap 10 mmol/L; Blood Urea Nitrogen 14 mg/dL (7-17); Calcium 9.6 mg/dL (8.4-10.2); Carbon Dioxide 26 mmol/L (22-30); Chloride 102 mmol/L (98-107); Cholesterol 118 mg/dL (<200); Glucose 197 mg/dL (74-99); HDL Cholesterol 42 mg/dL (40-60); LDL Cholesterol,Calculated 55 mg/dL (0-99); Potassium 4.4 mmol/L (3.5-5.1); Sodium 138 mmol/L (137-145); Total Bilirubin 0.4 mg/dL (0.2-1.3); Total Protein 7.6 g/dL (6.3-8.2); Triglycerides 104 mg/dL (<150)
--- NOTE | 2018-02-22 13:01 | US ---
EXAMINATION TYPE: US thyroid st tissue head/neck DATE OF EXAM: 02/22/2018 COMPARISON: 10/04/2016 CLINICAL HISTORY: E04.1 THYROID NODULE. Follow up thyroid nodule. No thyroid medications or bx. GLAND SIZE: Right Lobe: 4.0 x 1.9 x 1.5 cm Overall Parenchyma: heterogenous Left Lobe: 4.4 x 1.6 x 1.7 cm Overall Parenchyma: heterogeneous Isthmus Thickness: 0.3 cm NODULES RIGHT: # of nodules measured on right: 0 LEFT: # of nodules measured on left: 1 1. 0.8 X 0.5 x 0.5 cm cystic nodule at the mid pole with well-defined margins. This nodule is wide r than tall and shows intranodular vascularity. Prior size: 0.6 x 0.7 x 0.5 cm ISTHMUS: # of nodules measured in the isthmus: 0 Bilateral neck scanned, no evidence of lymphadenopathy. IMPRESSION: Nonspecific subcentimeter thyroid nodule left thyroid lobe.
[2018-02-22 13:10] LABS: T4, Free (Free Thyroxine) 0.99 ng/dL (0.78-2.19)
[2018-02-22 20:10] LABS: Hemoglobin A1C 8.2 % (4.0-6.0)
== END ==
LOC: RADUSWWP 12:07
PROVIDERS: ATTEND Internal Medicine Endocrinology, Diabetes & Metabolism
DX: E04.1 Nontoxic single thyroid nodule (principal); E11.65 Type 2 diabetes mellitus with hyperglycemia
CPT/HCPCS: 36415; 76536; 80053; 80061; 82043; 82570; 83036; 84439; 84443

== ENCOUNTER → 2018-08-15 | Outpatient (CLI) | payer BC, OTHER ==
[2018-08-15 19:26] LABS: Albumin 3.9 g/dL (3.80-4.90); Albumin/Globulin Ratio 1.63 (1.60-3.17); Anion Gap 9.2 mmol/L (4.00-12.00); Calcium 8.5 mg/dL (8.7-10.3); Carbon Dioxide 27.8 mmol/L (21.6-31.8); Globulin 2.4 g/dL (1.6-3.3); LDL Cholesterol,Calculated 82.6 mg/dL (0.0-131.0); Potassium 4.4 mmol/L (3.5-5.5); Total Bilirubin 0.4 mg/dL (0.2-1.2); Total Protein 6.3 g/dL (6.2-8.2); VLDL Calculation 18.4 mg/dL (5.00-40.00)
[2018-08-15 21:13] LABS: Hemoglobin A1C 8.1 % (4.0-6.0)
== END ==
LOC: LABWHC1 13:28
PROVIDERS: ATTEND Internal Medicine Endocrinology, Diabetes & Metabolism
DX: E11.65 Type 2 diabetes mellitus with hyperglycemia (principal); E78.5 Hyperlipidemia, unspecified
CPT/HCPCS: 36415; 80053; 80061; 82043; 82570; 83036; 84443

== ENCOUNTER → 2018-11-25 | Outpatient (CLI) | payer OTHER ==
--- NOTE | 2018-11-27 12:56 | MM ---
Reason for exam: screening (asymptomatic). Last mammogram was performed 3 years and 6 months ago. History: Patient is postmenopausal. MG Screening Mammo w CAD Bilateral CC and MLO view(s) were taken. Prior study comparison: June 08, 2015, bilateral MG screening mammo w CAD. The breast tissue is heterogeneously dense. This may lower the sensitivity of mammography. No suspicious abnormality. No significant new finding when compared with prior exam. ASSESSMENT: Negative, BI-RAD 1 RECOMMENDATION: Routine screening mammogram of both breasts in 1 year.
== END | disposition home or self-care (01) ==
LOC: RADMAMWWP 16:32
PROVIDERS: ATTEND Family Medicine
DX: Z12.31 Encounter for screening mammogram for malignant neoplasm of breast (principal)
CPT/HCPCS: 77067

== ENCOUNTER 2018-12-03 06:51 | Day surgery (SDC) | payer OTHER ==
[2018-11-28 11:28] VITALS: BMI 47.1
[~2018-12-03 06:51] MED LIST: DEXAMETHASONE SOD PHOSPHATE 10 MG/ML 1 ML VIAL IV ONE; HYDROmorphone 0.5 MG/0.5 ML SYRINGE IVP PRN; LACTATED RINGERS 1,000 ML IV SCH; LIDOCAINE 1% 20 ML VIAL (10MG/ML) FOR IV START INTRADERMA PRN; MIDAZOLAM 2 MG/2 ML VIAL IV PRN; ONDANSETRON 4 MG/2 ML VIAL IVP ONE; Pre Op ABX Message 1 EACH MISC MISCELLANE ONE; SCOPOLAMINE 1.5MG/72HR PATCH TRANSDERM ONE
[2018-12-03] MEDS ORDERED: INSULIN ASPART (NovoLOG) 100 UNIT/ML VIAL SQ ONE (07:50)
[2018-12-03 07:52] LABS: Glucose,Whole Blood 208 mg/dL (75-99)
[2018-12-03 08:17] LABS: Glucose,Whole Blood 203 mg/dL (75-99)
[2018-12-03] MEDS ORDERED: PROPOFOL 10 MG/ML 20 ML VIAL IV ONE (09:00)
[2018-12-03] MEDS ORDERED: fentaNYL (PF) 50 MCG/ML 2 ML AMP ONE (09:00)
[2018-12-03] MEDS ORDERED: MIDAZOLAM 2 MG/2 ML VIAL ONE (09:00)
[2018-12-03] MEDS ORDERED: diphenhydrAMINE 50 MG/ML 1 ML VIAL ONE (09:00)
[2018-12-03] MEDS ORDERED: LIDOCAINE 1% INJ 10MG/ML (20 ML MDV) ONE (09:00)
[2018-12-03] MEDS ORDERED: GLYCOPYRROLATE 0.2 MG/ML 2 ML VIAL ONE (09:00)
[2018-12-03] MEDS ORDERED: LIDOCAINE 1%-EPI 1:100,000 30 ML VIAL SQ ONE ×2 (09:17)
[2018-12-03] MEDS ORDERED: ROPIVACAINE 5 MG/ML 30 ML VIAL MISCELLANE ONE ×2 (09:18→09:37)
[2018-12-03 09:56] LABS: Glucose,Whole Blood 204 mg/dL (75-99)
[2018-12-03 09:57] VITALS: RESP 16; TEMP 98.3
--- NOTE | 2018-12-03 10:02 | P.OP ---
Date of Procedure: 12/03/18 Preoperative Diagnosis: Right carpal tunnel syndrome Postoperative Diagnosis: Right carpal tunnel syndrome Procedure(s) Performed: Right endoscopic carpal tunnel release Anesthesia: MAC, local Surgeon: Linus Montanez Estimated Blood Loss (ml): 1 Condition: stable Disposition: PACU Indications for Procedure: The patient is a 53-year-old female who was diagnosed with right carpal tunnel syndrome. Treatment options (and associated risks and benefits) were discussed in the office. The patient elected to proceed with surgical release. In preop, the patient denied any additional questions or concerns. Consent forms were signed. The operative site was confirmed and marked. Description of Procedure: The patient was positioned supine with the right arm on an arm board. A tourniquet was applied. Monitored anesthesia was administered uneventfully. A time-out was performed, confirming patient identifiers, the operative side, site and the procedure to be performed: all team members expressed agreement. Using aseptic technique, local anesthetic was injected into the subcutaneous tissues around the planned incision. The right upper extremity was then prepped and draped in standard, sterile fashion. The limb was exsanguinated with an Esmarch and the tourniquet was inflated. Loupe magnification was used throughout the case for optimum visualization. A transverse incision was marked just proximal to the wrist flexion crease, in line with the radial border of the ring finger. The skin was sharply incised and the subcutaneous tissues were bluntly spread. The volar carpal fascia was identified and sharply incised. The median nerve was identified immediately below this. A synovial elevator was inserted and used to release adhesions on the underside of the transverse carpal ligament. The washboard effect was palpable. A dilator was inserted to sound and enlarge the carpal tunnel. The hamate hook was palpable ulnarly. The carpal tunnel was quite tight and the small side-specific guide and camera were inserted. The transverse carpal ligament was clearly visualized above. The distal edge of the ligament was identified and palpated with a probe. A rasp was used to clear the remaining synovial adhesions. The endoscopic blade was inserted and the distal half of the ligament was sharply incised. This was markedly thickened and dense. Residual distal transverse fibers were released and then the proximal portion of the ligament was divided. Wide release of ligament was visually confirmed. The camera and guide were removed. The volar carpal/antebrachial fascia proximal to the incision was released with scissors under direct visualization. The tourniquet was released after 19 minutes at 250 mmHg. Excellent hemostasis was obtained with held pressure. The wound was thoroughly irrigated with normal saline. The incision was closed with interrupted 4-0 Nylon sutures. Additional local anesthetic with epinephrine was injected for adjunctive postoperative pain control and hemostasis. A soft, sterile dressing was applied. All sponge, needle and instrument counts were correct at the end of the case. The patient tolerated the procedure well and was transferred to recovery in stable condition.
[2018-12-03 10:25] VITALS: PULSE 96
[2018-12-03 10:40] VITALS: BP 136/70
== END 2018-12-03 11:07 | disposition home or self-care (01) ==
LOC: OR 06:51
PROVIDERS: ATTEND Orthopaedic Surgery
DX: G56.01 Carpal tunnel syndrome, right upper limb (principal); I10 Essential (primary) hypertension; M18.12 Unilateral primary osteoarthritis of first carpometacarpal joint, left hand; E11.9 Type 2 diabetes mellitus without complications; J44.9 Chronic obstructive pulmonary disease, unspecified; G47.33 Obstructive sleep apnea (adult) (pediatric); E66.01 Morbid (severe) obesity due to excess calories; Z68.42 Body mass index [BMI] 45.0-49.9, adult; K21.9 Gastro-esophageal reflux disease without esophagitis; K58.9 Irritable bowel syndrome, unspecified; Z79.84 Long term (current) use of oral hypoglycemic drugs; Z79.899 Other long term (current) drug therapy; Z87.891 Personal history of nicotine dependence; Z90.49 Acquired absence of other specified parts of digestive tract; Z98.51 Tubal ligation status; Z83.3 Family history of diabetes mellitus; Z82.49 Family history of ischemic heart disease and other diseases of the circulatory system
CPT/HCPCS: 64721; 81025; J2250; J1200; J2405; J2001; J3010; J2795; J2704

== ENCOUNTER → 2018-12-24 | Outpatient (CLI) | payer OTHER ==
[2018-12-24 15:13] VITALS: BP 118/80; PULSE 101; RESP 18; TEMP 98.2; BMI 47.1
--- NOTE | 2018-12-24 15:54 | P.HPOB ---
History of Present Illness H&P Date: 12/24/18 Chief Complaint: The patient is here for her routine gynecologic exam. This is a 53-year-old with an LMP of 2016. The patient is without gynecologic complaints and denies any postmenopausal bleeding. The patient did have an endometrial biopsy in 2016 because of postmenopausal bleeding and this was benign. She denies any bleeding since then. Review of Systems Her weight has been stable. She denies respiratory, cardiac, or G.I. problems. Past Medical History Past Medical History: COPD, Diabetes Mellitus, GERD/Reflux, Hypertension, Musculoskeletal Disorder, Osteoarthritis (OA), Sleep Apnea/CPAP/BIPAP Additional Past Medical History / Comment(s): COPD STAGE II. NEUROPATHY LEGS & FEET. CROHNS DISEASE, IBS. carpal tunnel syndrome. HIATAL HERNIA. LOW BACK PAIN, SMALL THYROID NODULE. Type II diabetes. 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 History of Any Multi-Drug Resistant Organisms: None Reported Past Surgical History: Adenoidectomy, Appendectomy, Cholecystectomy, Tonsillectomy, Tubal Ligation Additional Past Surgical History / Comment(s): Colonoscopy 2014 . Nasal Surg martha(Fx), SINUS SURGERY W/ TONSILS. Past Anesthesia/Blood Transfusion Reactions: No Reported Reaction Past Psychological History: Anxiety Additional Psychological History / Comment(s): R/T STRESS Smoking Status: Former smoker Past Alcohol Use History: Rare (2 or 3 per year.) Additional Past Alcohol Use History / Comment(s): Quit smoking 2014, smoked since age 15, < 1 PPD Past Drug Use History: None Reported Additional History: She is and has worked at [employer]. She is currently on medical leave because of back and wrist problems. - Past Family History Mother Additional Family Medical History / Comment(s): Heart disease. Father Additional Family Medical History / Comment(s): BRAIN ANEURYSM Brother(s) Family Medical History: Diabetes Mellitus Medications and Allergies Home Medications Medication Instructions Recorded Confirmed Type Lisinopril [Zestril] 10 mg PO DAILY 11/27/13 12/24/18 History Ranitidine HCl [Zantac] 150 mg PO BID 11/27/13 12/24/18 History metFORMIN HCL 1,000 mg PO BID 11/27/13 12/24/18 History Omeprazole 20 mg PO BID 12/29/15 12/24/18 History Balsalazide Disodium [Colazal] 2,250 mg PO TID 02/01/16 12/24/18 History sitaGLIPtin [Januvia] 100 mg PO DAILY 02/01/16 12/24/18 History Glimepiride [Amaryl] 6 mg PO DAILY 06/20/16 12/24/18 History Gabapentin [Neurontin] 600 mg PO TID 02/26/17 12/24/18 History Dicyclomine [Bentyl] 10 mg PO TID 04/29/17 12/24/18 History Magnesium Chloride [Slow Mag] 128 mg PO DAILY 04/29/17 12/24/18 History Albuterol Inhaler [Ventolin Hfa 1 - 2 puff INHALATION RT-Q6H PRN 11/28/18 12/24/18 History Inhaler] Cyanocobalamin [Vitamin B-12] 500 mcg PO DAILY 11/28/18 12/24/18 History Umeclidinium [place] [Incruse 1 puff INHALATION DAILY 11/28/18 12/24/18 History Ellipta] Allergies Allergy/AdvReac Type Severity Reaction Status Date / Time No Known Allergies Allergy Verified 12/24/18 15:13 Exam Vital Signs Temp Pulse Resp BP Pulse Ox 12/24/18 15:06 98.2 F 101 H 18 118/80 95 Intake and Output 12/24/18 12/24/18 12/24/18 06:59 14:59 22:59 Other: Weight 132.449 kg Height 5'6", weight 292 pounds, BMI 47.1. This is a well-developed well-nourished obese white female who is alert and oriented times 3 in no acute distress. HEENT: Within normal limits. NECK: Supple without mass or thyromegaly. CHEST AND LUNGS: Clear to auscultation. HEART: Regular rate and rhythm. BREASTS: Are without mass or discharge. AXILLARY EXAM: Negative for adenopathy. BACK: Negative for CVA tenderness. ABDOMEN: Soft, obese, nontender, without palpable masses. PELVIC EXAM: Normal external genitalia. Cervix and vagina appear normal. There is no unusual discharge. There is no evidence of prolapse. The uterus is midposition, nongravid size and nontender. There are no palpable adnexal masses or tenderness. Bimanual examination is somewhat limited secondary to her size. RECTAL EXAM: recto vaginal exam is negative for mass or tenderness and is negative for occult blood. EXTREMITIES: Nontender. IMPRESSION: 1. 53-year-old menopausal female with normal gynecologic exam. PLAN: 1. Pap smear was performed. 2. Self breast awareness was discussed with the patient. 3. Screening mammogram was done on 11/25/2018 and was negative. 4. Osteoporosis prevention was discussed. I have stressed the importance of adequate calcium, vitamin D and regular exercise. Recommended amounts of calcium and vitamin D were also discussed. 5. She was advised to return in one year for her annual well woman exam.
== END | disposition home or self-care (01) ==
LOC: WWCWWP 14:58
PROVIDERS: ATTEND Obstetrics & Gynecology
DX: Z53.9 Procedure and treatment not carried out, unspecified reason (principal)

== ENCOUNTER → 2019-01-24 | Outpatient (CLI) | payer OTHER | END | disposition home or self-care (01) | LOC: LABPAT 14:59 | PROVIDERS: ATTEND Orthopaedic Surgery | DX: Z01.812 Encounter for preprocedural laboratory examination (principal); Z01.818 Encounter for other preprocedural examination | CPT/HCPCS: 93005 ==

== ENCOUNTER 2019-01-28 06:23 | Day surgery (SDC) | payer OTHER ==
[2019-01-23 12:34] VITALS: BMI 47.1
[2019-01-28 06:44] VITALS: TEMP 98.1
[2019-01-28 06:58] LABS: Glucose,Whole Blood 239 mg/dL (75-99)
[2019-01-28] MEDS ORDERED: LIDOCAINE 1%-EPI 1:100,000 20 ML VIAL ONE ×6 (07:10)
[2019-01-28] MEDS ORDERED: ONDANSETRON 4 MG/2 ML VIAL ONE (07:10)
[2019-01-28] MEDS ORDERED: DEXAMETHASONE SOD PHOSPHATE 10 MG/ML 1 ML VIAL ONE (07:10)
[2019-01-28] MEDS ORDERED: INSULIN ASPART (NovoLOG) 100 UNIT/ML VIAL SQ ONE (07:30)
[2019-01-28] MEDS ORDERED: fentaNYL (PF) 50 MCG/ML 2 ML AMP ONE (07:39)
[2019-01-28] MEDS ORDERED: MIDAZOLAM 2 MG/2 ML VIAL ONE (07:39)
[2019-01-28] MEDS ORDERED: PROPOFOL 10 MG/ML 20 ML VIAL IV ONE (07:39)
[2019-01-28] MEDS ORDERED: LIDOCAINE 1%-EPI 1:100,000 20 ML VIAL SQ ONE ×4 (07:52→08:43)
[2019-01-28] MEDS ORDERED: ROPIVACAINE 5MG/ML 20ML VIAL MISCELLANE ONE ×3 (08:01→08:43)
--- NOTE | 2019-01-28 09:06 | P.OP ---
Date of Procedure: 01/28/19 Preoperative Diagnosis: Left carpal tunnel syndrome Postoperative Diagnosis: Left carpal tunnel syndrome Procedure(s) Performed: Left endoscopic carpal tunnel release Anesthesia: MAC, local Surgeon: Linus Montanez Estimated Blood Loss (ml): 1 Condition: stable Disposition: same day Indications for Procedure: The patient is a pleasant 53-year-old female who was diagnosed with bilateral carpal tunnel syndrome. She previously underwent release of her right side and returns for treatment on the left. Treatment options/alternatives (and associated risks and benefits) were discussed in the office. The patient elected to proceed with surgical release. In preop, she denied any additional questions or concerns. Consent forms were signed. The operative site was confirmed and marked. Description of Procedure: The patient was positioned supine with the left arm on a hand table. A tourniquet was applied. Monitored anesthesia was administered uneventfully. A time-out was performed, confirming patient identifiers, the operative side, site and the procedure to be performed: all team members expressed agreement. Using aseptic technique, local anesthetic was injected into the subcutaneous tissues around the planned incision. The left upper extremity was then prepped and draped in standard, sterile fashion. The limb was exsanguinated with an Esmarch and the tourniquet was inflated. Loupe magnification was used throughout the case for optimum visualization. A transverse incision was marked just proximal to the wrist flexion crease, in line with the radial border of the ring finger. The skin was sharply incised and the subcutaneous tissues were bluntly spread. The volar carpal fascia was identified and sharply incised. The fascia was quite thickened even several centimeters proximal to the wrist crease. The median nerve was identified immediately below. The fascia was adherent to the nerve. A Tollhouse elevator was used to carefully release the adhesions. The introitus to the carpal tunnel was remarkably tight. To facilitate atraumatic entry, the volar carpal fascia proximal and distal to the incision was released with scissors under direct visualization. The thickened subcutaneous tissue distal to the incision was also quite dense and was released with spreading dissection. A synovial elevator inserted and passed smoothly into the carpal tunnel without traction or tension on the nerve. This was used to gently release adhesions on the underside of the transverse carpal ligament. The washboard effect was palpable. A dilator was inserted to sound and enlarge the carpal tunnel. The hamate hook was palpable ulnarly. The small side-specific guide and camera were inserted. The transverse carpal ligament was clearly visualized above. The distal edge of the ligament was identified and palpated with a probe. A rasp was used to clear the remaining synovial adhesions. The endoscopic blade was inserted and the distal half of the ligament was sharply incised. This, too, was substantially thickened. Residual distal transverse fibers were released and then the proximal portion of the ligament was divided. Wide release of ligament was visually confirmed. The camera was removed. After release, the nerve was still firmly encased in thick perineural tissue, causing residual compression. A neurolysis was performed which substantially improved both the appearance and mobility of the nerve. The tourniquet was released after 33 minutes at 250 mmHg. Excellent hemostasis was obtained with held pressure. The wound was thoroughly irrigated with normal saline. The incision was closed with interrupted 4-0 Nylon sutures. Additional local anesthetic with epinephrine was injected for adjunctive postoperative pain control and hemostasis. A soft, sterile dressing was applied. All sponge, needle and instrument counts were correct at the end of the case. The patient tolerated the procedure well and was transferred to recovery in stable condition.
[2019-01-28 09:09] LABS: Glucose,Whole Blood 236 mg/dL (75-99)
[2019-01-28 09:12] VITALS: BP 102/65; PULSE 87; RESP 20
== END 2019-01-28 09:45 | disposition home or self-care (01) ==
LOC: OR 06:23
PROVIDERS: ATTEND Orthopaedic Surgery
DX: G56.02 Carpal tunnel syndrome, left upper limb (principal); E11.9 Type 2 diabetes mellitus without complications; M18.12 Unilateral primary osteoarthritis of first carpometacarpal joint, left hand; K58.9 Irritable bowel syndrome, unspecified; J44.9 Chronic obstructive pulmonary disease, unspecified; H53.8 Other visual disturbances; G89.29 Other chronic pain; G47.33 Obstructive sleep apnea (adult) (pediatric); K21.9 Gastro-esophageal reflux disease without esophagitis; E66.9 Obesity, unspecified; F17.210 Nicotine dependence, cigarettes, uncomplicated; Z97.3 Presence of spectacles and contact lenses; Z79.51 Long term (current) use of inhaled steroids; Z79.84 Long term (current) use of oral hypoglycemic drugs; Z79.899 Other long term (current) drug therapy; Z83.3 Family history of diabetes mellitus; Z82.49 Family history of ischemic heart disease and other diseases of the circulatory system; Z98.51 Tubal ligation status; Z90.49 Acquired absence of other specified parts of digestive tract; Z90.89 Acquired absence of other organs; Z98.890 Other specified postprocedural states; Z68.42 Body mass index [BMI] 45.0-49.9, adult
CPT/HCPCS: 29848; J2250; J1100; J2405; J3010; J2704; J2795

== ENCOUNTER → 2019-04-10 | Outpatient (CLI) | payer OTHER ==
[2019-04-10 15:29] LABS: African American GFR (CKD) 116.3 (60.0-200.0); Albumin 4.3 g/dL (3.80-4.90); Albumin/Globulin Ratio 1.65 (1.60-3.17); Anion Gap 8.1 mmol/L (4.00-12.00); BUN/Creat Ratio 14.29 Ratio (12.00-20.00); Calcium 8.9 mg/dL (8.7-10.3); Carbon Dioxide 30.9 mmol/L (21.6-31.8); Chol/HDL Ratio 3.97; Globulin 2.6 g/dL (1.6-3.3); LDL Cholesterol,Calculated 88.2 mg/dL (0.0-131.0); Non-African American GFR(CKD) 100.3 (60.0-200.0); Potassium 4.6 mmol/L (3.5-5.5); Total Bilirubin 0.3 mg/dL (0.2-1.2); Total Protein 6.9 g/dL (6.2-8.2); VLDL Calculation 21.8 mg/dL (5.00-40.00)
== END | disposition home or self-care (01) ==
LOC: LABWHC1 10:59
PROVIDERS: ATTEND Internal Medicine Endocrinology, Diabetes & Metabolism
DX: E11.65 Type 2 diabetes mellitus with hyperglycemia (principal)
CPT/HCPCS: 36415; 80053; 80061; 82043; 82570; 83036; 84443

== ENCOUNTER → 2019-12-11 | Outpatient (CLI) | payer OTHER ==
[2019-12-11 17:40] LABS: Urine Creatinine 112.1 mg/dL
[2019-12-11 18:08] LABS: Hemoglobin A1C 9.4 % (4.0-6.0)
[2019-12-11 18:32] LABS: African American GFR (CKD) 121.5 (60.0-200.0); Albumin 4.1 g/dL (3.80-4.90); Albumin/Globulin Ratio 1.41 (1.60-3.17); Anion Gap 8.9 mmol/L (4.00-12.00); Calcium 9.2 mg/dL (8.7-10.3); Carbon Dioxide 27.1 mmol/L (21.6-31.8); Chol/HDL Ratio 4.1; Globulin 2.9 g/dL (1.6-3.3); LDL Cholesterol,Calculated 102.6 mg/dL (0.0-131.0); Non-African American GFR(CKD) 104.8 (60.0-200.0); Potassium 4.4 mmol/L (3.5-5.5); Total Bilirubin 0.4 mg/dL (0.2-1.2); VLDL Calculation 18.4 mg/dL (5.00-40.00)
== END | disposition home or self-care (01) ==
LOC: LABWHC1 10:19
PROVIDERS: ATTEND Internal Medicine Endocrinology, Diabetes & Metabolism
DX: E11.65 Type 2 diabetes mellitus with hyperglycemia (principal); E04.1 Nontoxic single thyroid nodule
CPT/HCPCS: 36415; 80053; 80061; 82043; 82570; 83036; 84439; 84443

== ENCOUNTER → 2020-02-04 | Outpatient (CLI) | payer OTHER ==
[2020-02-04 13:01] LABS: HCT 38.8 % (34.0-46.0); HGB 12.2 gm/dL (11.4-16.0); MCH 26.2 pg (25.0-35.0); MCHC 31.4 g/dL (31.0-37.0); MCV 83.3 fL (80.0-100.0); Mean Platelet Volume 6.5; Platelet Count 317 k/uL (150-450); RBC 4.66 m/uL (3.80-5.40); RDW 15.1 % (11.5-15.5); WBC 9.6 k/uL (3.8-10.6)
[2020-02-04 13:07] LABS: African American GFR (CKD) >90 (>60 ml/min/1.73 sqM); Anion Gap 7 mmol/L; Blood Urea Nitrogen 10 mg/dL (7-17); Carbon Dioxide 30 mmol/L (22-30); Chloride 98 mmol/L (98-107); Non-African American GFR(CKD) >90 (>60 ml/min/1.73 sqM); Potassium 4.6 mmol/L (3.5-5.1); Sodium 135 mmol/L (137-145)
== END | disposition home or self-care (01) ==
LOC: LABPAT 10:58
PROVIDERS: ATTEND Internal Medicine Interventional Cardiology
DX: Z01.818 Encounter for other preprocedural examination (principal); R94.39 Abnormal result of other cardiovascular function study
CPT/HCPCS: 36415; 80051; 82565; 84520; 85027

== ENCOUNTER → 2020-02-04 | Outpatient (CLI) | payer OTHER ==
[2020-02-04 11:42] VITALS: BP 142/69; PULSE 92; RESP 16; TEMP 98
--- NOTE | 2020-02-04 12:31 | P.HPOB ---
History of Present Illness H&P Date: 02/04/20 Chief Complaint: The patient is here for her routine gynecologic exam. This is a 54-year-old 013 with an LMP of 2016. The patient is without gynecologic complaints and denies any postmenopausal bleeding. Review of Systems The patient's weight has been stable over the last year. She denies respiratory, cardiac, or G.I. problems. Past Medical History Past Medical History: COPD, Diabetes Mellitus, GERD/Reflux, Hypertension, Musculoskeletal Disorder, Osteoarthritis (OA), Sleep Apnea/CPAP/BIPAP, Thyroid Disorder Additional Past Medical History / Comment(s): Type 2 diabetes. has CPAP. NEUROPATHY LEGS & FEET. CROHNS DISEASE, IBS. HIATAL HERNIA. LOW BACK PAIN, SMALL THYROID NODULE. 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 History of Any Multi-Drug Resistant Organisms: None Reported Past Surgical History: Adenoidectomy, Appendectomy, Cholecystectomy, Tonsillectomy, Tubal Ligation Additional Past Surgical History / Comment(s): [id number], Nasal Surgery(Fx), SINUS SURGERY W/ TONSILS. temo carpal tunnel surgery Past Anesthesia/Blood Transfusion Reactions: No Reported Reaction Past Psychological History: Anxiety Additional Psychological History / Comment(s): R/T STRESS. Smoking Status: Former smoker Past Alcohol Use History: Rare (None over the past 1 year) Additional Past Alcohol Use History / Comment(s): Quit smoking in 2014, smoked since age 15, < 1 PPD. Past Drug Use History: None Reported Additional History: She is and is not seeing anybody at this time. She is currently unemployed and applying for disability. - Past Family History Mother Family Medical History: No Reported History Additional Family Medical History / Comment(s): Heart disease. Father Additional Family Medical History / Comment(s): BRAIN ANEURYSM Brother(s) Family Medical History: Diabetes Mellitus Medications and Allergies Home Medications Medication Instructions Recorded Confirmed Type lisinopriL [Zestril] 10 mg PO QAM 11/27/13 02/03/20 History metFORMIN HCL 1,000 mg PO BID 11/27/13 02/03/20 History Omeprazole 20 mg PO BID 12/29/15 02/03/20 History Balsalazide Disodium [Colazal] 2,250 mg PO TID 02/01/16 02/03/20 History Glimepiride [Amaryl] 8 mg PO DAILY 06/20/16 02/03/20 History Gabapentin [Neurontin] 600 mg PO TID 02/26/17 02/03/20 History Dicyclomine [Bentyl] 10 mg PO TID 04/29/17 02/03/20 History Magnesium Chloride [Slow Mag] 128 mg PO DAILY 04/29/17 02/03/20 History Albuterol Inhaler (Mhu) [Ventolin 1 - 2 puff INHALATION RT-Q6H PRN 11/28/18 02/03/20 History Hfa Inhaler] Cyanocobalamin [Vitamin B-12] 500 mcg PO DAILY 11/28/18 02/03/20 History Umeclidinium Bowie [Incruse 1 puff INHALATION DAILY 11/28/18 02/03/20 History Ellipta] Cholecalciferol [Vitamin D3 (25 1,000 unit PO DAILY 01/23/19 02/03/20 History Mcg = 1000 Iu)] Beclomethasone Dip 80 Mcg/Puff 2 puff INHALATION BID 02/03/20 02/03/20 History [Qvar 80 mcg] DULoxetine HCL [Cymbalta] 30 mg PO DAILY 02/03/20 02/03/20 History Ferrous Sulfate [Feosol] 325 mg PO DAILY 02/03/20 02/03/20 History Insulin Glargine,Hum.rec.anlog 46 unit SQ HS 02/03/20 02/03/20 History [Basaglar Kwikpen U-100] Montelukast [Singulair] 10 mg PO DAILY 02/03/20 02/03/20 History Omalizumab [Xolair] 300 mg SQ Q28D 02/03/20 02/03/20 History Allergies Allergy/AdvReac Type Severity Reaction Status Date / Time No Known Allergies Allergy Verified 02/04/20 11:30 Exam Vital Signs Temp Pulse Resp BP Pulse Ox 02/04/20 11:33 98.0 F 92 16 142/69 98 Intake and Output 02/03/20 02/04/20 02/04/20 22:59 06:59 14:59 Other: Weight 131.995 kg Height 5 feet 6 inches, weight 291 pounds, BMI 47.0. This is a well-developed well-nourished obese white female who is alert and oriented times 3 in no acute distress. HEENT: Within normal limits. NECK: Supple without mass or thyromegaly. CHEST AND LUNGS: Clear to auscultation. HEART: Regular rate and rhythm. BREASTS: Are without mass or discharge. AXILLARY EXAM: Negative for adenopathy. BACK: Negative for CVA tenderness. ABDOMEN: Soft, obese, nontender, without palpable masses. PELVIC EXAM: Normal external genitalia with minimal atrophy. Cervix and vagina appear normal with minimal atrophy. There is no unusual discharge. There is no evidence of prolapse. The uterus is midposition, nongravid size and nontender. There are no palpable adnexal masses or tenderness. Bimanual examination is somewhat limited secondary to her size. RECTAL EXAM: Rectovaginal exam is negative for mass or tenderness and is negative for occult blood. EXTREMITIES: Nontender. IMPRESSION: 1. 54-year-old menopausal female with normal gynecologic exam. PLAN: 1. Pap smear was deferred since she had a normal one on 12/24/2018. 2. Self breast awareness was discussed with the patient. 3. The patient is scheduled for her screening mammogram in approximate 2 months and the order slip was given to the patient for this. 4. Osteoporosis prevention was discussed. I have stressed the importance of adequate calcium, vitamin D and regular exercise. Recommended amounts of calcium and vitamin D were also discussed. She states she is scheduled for a bone density test ordered through her PCP. 5. She was advised to return in one year for her annual well woman exam.
== END | disposition home or self-care (01) ==
LOC: WWCWWP 10:54
PROVIDERS: ATTEND Obstetrics & Gynecology
DX: Z53.9 Procedure and treatment not carried out, unspecified reason (principal)

== ENCOUNTER → 2020-02-05 | Day surgery (SDC) | payer OTHER ==
[2020-02-03 08:38] VITALS: BMI 47.6
[~2020-02-05] MED LIST changes: +ALPRAZolam 0.25 MG TAB PO PRN; +ALPRAZolam 0.5 MG TAB PO PRN; +ASPIRIN 325 MG TAB PO STA; +ATORVASTATIN 80 MG TAB PO STA; -DEXAMETHASONE SOD PHOSPHATE 10 MG/ML 1 ML VIAL IV ONE; -HYDROmorphone 0.5 MG/0.5 ML SYRINGE IVP PRN; +IOPAMIDOL-370 125ML BTL INJ ONE; -LACTATED RINGERS 1,000 ML IV SCH; -LIDOCAINE 1% 20 ML VIAL (10MG/ML) FOR IV START INTRADERMA PRN; +LIDOCAINE 1% INJ 10MG/ML (20 ML MDV) SQ ONE; +MIDAZOLAM 2 MG/2 ML VIAL IV ONE; -MIDAZOLAM 2 MG/2 ML VIAL IV PRN; +NITROGLYCERIN SL TABS 0.4 MG TAB SUBLINGUAL PRN; -ONDANSETRON 4 MG/2 ML VIAL IVP ONE; -Pre Op ABX Message 1 EACH MISC MISCELLANE ONE; +RX INFO: IV CONTRAST WAS GIVEN 1 EACH MISC MISCELLANE PRN; -SCOPOLAMINE 1.5MG/72HR PATCH TRANSDERM ONE; +SODIUM CHLORIDE 0.9% 1,000 ML IV ONE; +SODIUM CHLORIDE 0.9% 1,000 ML IV SCH; +SODIUM CHLORIDE 0.9% 1,000 ML in EMPTY BAG 1 BAG IV ONE; +VERAPAMIL SYRINGE (5 MG/10 ML) INTRAARTER ONE
[2020-02-05 07:47] VITALS: RESP 18; TEMP 97.8
[2020-02-05 07:47] LABS: Glucose,Whole Blood 241 mg/dL (75-99)
[2020-02-05 07:50] LABS: Basophils % (A) 0 %; Eosinophils # (A) 0.2 k/uL (0-0.7); Eosinophils % (A) 2 %; Lymphocytes # (A) 2.3 k/uL (1.0-4.8); Lymphocytes % (A) 24 %; MCH 25.7 pg (25.0-35.0); MCHC 32.4 g/dL (31.0-37.0); MCV 79.5 fL (80.0-100.0); Mean Platelet Volume 6.4; Monocytes # (A) 0.4 k/uL (0-1.0); Monocytes % (A) 4 %; Neutrophils # (A) 6.4 k/uL (1.3-7.7); Neutrophils % (A) 69 %; Platelet Count 344 k/uL (150-450); RBC 5.04 m/uL (3.80-5.40); RDW 15.2 % (11.5-15.5); WBC 9.4 k/uL (3.8-10.6)
[2020-02-05 08:02] LABS: African American GFR (CKD) >90 (>60 ml/min/1.73 sqM); Anion Gap 9 mmol/L; Blood Urea Nitrogen 11 mg/dL (7-17); Calcium 9.2 mg/dL (8.4-10.2); Carbon Dioxide 27 mmol/L (22-30); Chloride 98 mmol/L (98-107); Glucose 250 mg/dL (74-99); Non-African American GFR(CKD) >90 (>60 ml/min/1.73 sqM); Potassium 4.9 mmol/L (3.5-5.1); Sodium 134 mmol/L (137-145)
--- NOTE | 2020-02-05 10:12 | CC ---
CARDIAC CATHETERIZATION REPORT DATE OF SERVICE: 02/05/2020 PERFORMING PHYSICIAN: William Ngo MD. PROCEDURE PERFORMED: 1. Selective right and left coronary angiogram. 2. Left heart catheterization. INDICATION: This is a pleasant 54-year-old female patient with diabetes, hypertension, dyslipidemia, who was experiencing symptoms of exertional chest discomfort concerning for angina and because of that, a heart catheterization was advised. APPROACH: Right radial artery. COMPLICATION: None. LEVEL OF SEDATION: Moderate with sedation length of 15 minutes. PROCEDURE DESCRIPTION: After obtaining an informed consent, the patient was brought to the cardiac minilab operator. The right radial artery was cannulated using micropuncture technique, the micropuncture wire passed easily, then I placed a 6-Persian sheath. After that I gave the patient 2 mg of verapamil IA and 10,000 units of heparin IV. Selective right and left coronary angiogram performed with JR4 and JL3.5 catheters. Left heart catheterization performed using a pigtail catheter. The procedure was completed without any complication. SELECTIVE CORONARY ANGIOGRAM: 1. The RCA is a large caliber vessel and it is a dominant vessel. It is angiographically normal. The study bifurcates into PDA and PLV branches, both appeared to be angiographically normal. 2. The left main is angiographically normal, but short, it bifurcates into LCX and left anterior descending artery. 3. The LCX is a large caliber vessel, it is a nondominant vessel and appeared to be angiographically normal. It gives rise into first and second obtuse marginal branches and both appeared to be angiographically normal. 4. The LAD, the proximal LAD appeared to be angiographically normal. It gives rise into the first and second diagonal branches, both appeared to be angiographically normal. The mid LAD and distal LAD are angiographically normal. 5. HEMODYNAMICS: The LVEDP was 10 mmHg without significant gradient across the aortic valve. CONCLUSION: 1. Normal coronary angiogram. 2. Normal LVEDP. POSTPROCEDURE MANAGEMENT: 1. Medical treatment. 2. Follow up with the patient. MMODL / IJN: [id number] /
--- NOTE | 2020-02-05 10:12 | LTR ---
DATE OF SERVICE: 02/05/2020 RE: UliSuni tonyley Dear Dr. Peña; Ms. Daniela Palacios underwent today a heart catheterization and that revealed normal coronaries. I advised continue risk factors modification including diabetes control as well as blood pressure and high cholesterol control and follow up with the patient. I want to thank you for allowing us to participate in her care and please do not hesitate to call if any question or concern. Sincerely, MD DELILAH Miranda / EVELINA: [phone] /
[2020-02-05 13:03] VITALS: BP 136/61; PULSE 72
== END ==
LOC: CATHCVL 07:22
PROVIDERS: ATTEND Internal Medicine Interventional Cardiology
DX: R07.89 Other chest pain (principal); R06.02 Shortness of breath; R94.39 Abnormal result of other cardiovascular function study; I10 Essential (primary) hypertension; E78.5 Hyperlipidemia, unspecified; E66.01 Morbid (severe) obesity due to excess calories; Z68.42 Body mass index [BMI] 45.0-49.9, adult; E13.9 Other specified diabetes mellitus without complications; J44.9 Chronic obstructive pulmonary disease, unspecified; G47.30 Sleep apnea, unspecified; Z72.0 Tobacco use
CPT/HCPCS: 93458; 80048; 85025; C1769; C1894; J2250; J2001; J1644; Q9967

== ENCOUNTER → 2020-04-07 | Outpatient (CLI) | payer OTHER ==
--- NOTE | 2020-04-07 14:01 | BD ---
EXAMINATION TYPE: Axial Bone Density DATE OF EXAM: 04/07/2020 COMPARISON: NONE CLINICAL HISTORY: 54 YR OLD FEMALE.....ICD-10 CODE: Z13.820 OSTEOPOROSIS Height: 64.9 Weight: 298 FRAX RISK QUESTIONS: Glucocorticoids (More than 3mos): YES (Ex: prednisone, prednisolone, methylprednisolone, dexamethasone, and hydrocortisone). Secondary Osteoporosis: YES 1. Type 1 Diabetes: YES Current Tobacco Use: QUIT 5 YRS AGO RISK FACTORS HISTORY OF: Postmenopausal woman: AT ABOUT 48 YRS OLD Hyperparathyroidism: NO Adrenal Insufficiency: NO MEDICATIONS: Prednisone or other steroids: ASTHMA INHALERS AND STEROIDS FOR COPD, PREDNISONE FOR SKELETAL PAIN Additional Medications: BP MEDS, CYMBALTA, INSULIN AND DIABETIC MEDS, REFLUX MEDS, STATIN FOR CHOLEST NICK, VIT D, PAIN MEDS, NSAIDS Additional History: SLEEP APNEA, COPD, ASTHMA, ALLERGIES WITH INJECTIONS, CROHN DISEASE, IBS, ARTHRIT IS, NEUROAPATHY , EXAM MEASUREMENTS: Bone mineral densitometry was performed using the OnLive System. Bone mineral density as measured about the Lumbar spine is: ----- L1-L4(G/cm2): 1.369 T Score Values are as follows: ----- L1: 2.5 ----- L2: 2.5 ----- L3: 0.0 ----- L4: 1.3 ----- L1-L4: 1.6 Bone mineral density FIRST STUDY FOR PT.....BASELINE Bone mineral density about the R hip (g/cm2): 1.361 Bone mineral density about the L hip (g/cm2): 1.250 T Score values are as follows: -----R Neck: 2.9 -----L Neck: 0.9 -----R Total: 2.9 -----L Total: 0.9 Bone mineral density ......BASELINE STUDY FRAX%s: THERE IS A 5.3% CHANCE FOR A MAJOR OSTEOPOROTIC FX AND A 0.0% CHANCE FOR HIP....PROBABILITY FOR FX IN 10 YRS TIME IMPRESSION: Normal (Values between +1 and -1 indicate normal bone mass). Consider repeating this study in 5 year s or sooner if there is some new clinical indication. NOTE: T-SCORE=SD OF THE YOUNG ADULT MEAN.
--- NOTE | 2020-04-08 11:17 | MM ---
Reason for exam: screening (asymptomatic). Last mammogram was performed 1 year and 4 months ago. History: Patient is postmenopausal. Physical Findings: A clinical breast exam by your physician is recommended on an annual basis and results should be correlated with mammographic findings. MG Screening Mammo w CAD Bilateral CC and MLO view(s) were taken. Prior study comparison: November 25, 2018, bilateral MG screening mammo w CAD. June 08, 2015, bilateral MG screening mammo w CAD. There are scattered fibroglandular densities. There are benign appearing round calcifications in the right breast. There is no discrete abnormality. ASSESSMENT: Benign, BI-RAD 2 RECOMMENDATION: Routine screening mammogram of both breasts in 1 year.
== END | disposition home or self-care (01) ==
LOC: RADMAMWWP 12:20
PROVIDERS: ATTEND Family Medicine
DX: Z12.31 Encounter for screening mammogram for malignant neoplasm of breast (principal); Z13.820 Encounter for screening for osteoporosis
CPT/HCPCS: 77067; 77080

== ENCOUNTER 2021-01-05 06:19 | Day surgery (SDC) | payer OTHER ==
[2020-12-31 15:45] VITALS: BMI 47.1
[~2021-01-05 06:19] MED LIST changes: -ALPRAZolam 0.25 MG TAB PO PRN; -ALPRAZolam 0.5 MG TAB PO PRN; -ASPIRIN 325 MG TAB PO STA; -ATORVASTATIN 80 MG TAB PO STA; -IOPAMIDOL-370 125ML BTL INJ ONE; +LIDOCAINE 1% (10MG/ML) FOR IV START INTRADERMA PRN; -LIDOCAINE 1% INJ 10MG/ML (20 ML MDV) SQ ONE; -MIDAZOLAM 2 MG/2 ML VIAL IV ONE; -NITROGLYCERIN SL TABS 0.4 MG TAB SUBLINGUAL PRN; -RX INFO: IV CONTRAST WAS GIVEN 1 EACH MISC MISCELLANE PRN; -SODIUM CHLORIDE 0.9% 1,000 ML IV ONE; -SODIUM CHLORIDE 0.9% 1,000 ML IV SCH; -SODIUM CHLORIDE 0.9% 1,000 ML in EMPTY BAG 1 BAG IV ONE; -VERAPAMIL SYRINGE (5 MG/10 ML) INTRAARTER ONE
[2021-01-05 06:52] VITALS: TEMP 96.6
[2021-01-05 06:53] LABS: Glucose,Whole Blood 120 mg/dL (75-99)
[2021-01-05] MEDS ORDERED: LACTATED RINGERS 1,000 ML IV ONE ×2 (06:54→07:32)
[2021-01-05] MEDS ORDERED: LIDOCAINE 1% (10MG/ML) FOR IV START INTRADERMA ONE (06:55)
--- NOTE | 2021-01-05 07:28 | P.PCN ---
Date of Procedure: 01/05/21 Procedure(s) Performed: Brief history: Patient is a pleasant 55-year-old white female scheduled for an upper endoscopy as well as colonoscopy as a part of evaluation of long-standing history of GERD as well as Crohn's disease diagnosed in 2013. She is currently maintained on balsalazide 3 tablets 3 times daily and remains in remission. She is scheduled for an elective upper endoscopy as well as colonoscopy as a part of evaluation of GERD and long-standing history of Crohn's colitis Procedure performed: Esophagogastroduodenoscopy with biopsy Colonoscopy with random biopsy Preoperative diagnosis: GERD GERD Long-standing history of Crohn's colitis Anest[place]: [facility] [place] Procedure: After informed consent was obtained from the patient was brought into the endoscopy unit and IV sedation was administered by anesthesia under continuous monitoring. Initially upper endoscopy was done. The Olympus GF 160 video endoscope was inserted inserted into the mouth and esophagus intubated without any difficulty and was gradually advanced into the stomach and duodenum and carefully examined. The bulb and second part of the duodenum appeared normal. The scope was then withdrawn into the stomach adequately insufflated with air and upon careful examination the antrum and body, cardia and fundus appeared normal. There was a small gastric polyps noted in the cardia of the stomach which was biopsied. The scope was then withdrawn into the esophagus. The GE junction was located at 40 cm to the incisors. It appeared regular with no erythema erosions or ulcerations. Rest of the esophagus appeared normal. Patient tolerated the procedure well. At this time the patient continued to remain sedation. Initial digital rectal examination was normal. Olympus CF 160 video colonoscope was then inserted into the rectum and gradually advanced to the cecum without any difficulty. Careful examination was performed as the scope was gradually being withdrawn. The prep was excellent. The cecum, ascending colon, transverse colon, descending colon, sigmoid colon and rectum appeared normal. Random biopsies were done from the cecum to rectum at every 10 cm intervals to rule out dysplasia Retroflexion was performed in the rectum and no lesions were noted. Patient tolerated the procedure well. Impression: 1. Upper endoscopy revealed small gastric polyps but no evidence of esophagitis or Mark's esophagus 2. Colonoscopy revealed normal-appearing colon from rectum to cecum with no evidence of active colitis or colorectal neoplasia Recommendations: Findings of this examination were discussed with the patient as well as a family. She was advised to follow with the biopsy results. If the biopsy does not show any evidence of dysplasia, she can have a repeat colonoscopy in 2 years.
[2021-01-05] MEDS ORDERED: IV FLUID CONTINUATION 1,000 ML IV ONE (07:32)
[2021-01-05 07:39] LABS: Glucose,Whole Blood 117 mg/dL (75-99)
[2021-01-05] MEDS ORDERED: LIDOCAINE 1% INJ 10MG/ML (20 ML MDV) ONE (07:44)
[2021-01-05] MEDS ORDERED: PROPOFOL 10 MG/ML 20 ML VIAL IV ONE (07:44)
[2021-01-05 08:01] VITALS: BP 126/82; PULSE 83; RESP 16
== END 2021-01-05 08:17 | disposition home or self-care (01) ==
LOC: ORWHC2ENDO 06:19
PROVIDERS: ATTEND Internal Medicine Gastroenterology
DX: K50.90 Crohn's disease, unspecified, without complications (principal); K21.9 Gastro-esophageal reflux disease without esophagitis; K31.7 Polyp of stomach and duodenum; I10 Essential (primary) hypertension; J44.9 Chronic obstructive pulmonary disease, unspecified; Z87.891 Personal history of nicotine dependence; G47.33 Obstructive sleep apnea (adult) (pediatric); F41.9 Anxiety disorder, unspecified; K44.9 Diaphragmatic hernia without obstruction or gangrene; Z79.899 Other long term (current) drug therapy; G62.9 Polyneuropathy, unspecified
CPT/HCPCS: 88305; 45380; 43239; J2001; J2704

== ENCOUNTER → 2021-04-06 | Outpatient (CLI) | payer OTHER ==
[2021-04-06 09:04] VITALS: BP 123/79; PULSE 98; RESP 18; TEMP 98.3
--- NOTE | 2021-04-06 09:44 | P.HPOB ---
History of Present Illness H&P Date: 04/06/21 Chief Complaint: The patient is here for her routine gynecologic exam and ma mmogram. This is a 55-year-old 013 with an LMP of 2016. The patient is without gynecologic complaints and denies any postmenopausal bleeding. Review of Systems The patient's weight has been stable over the last year. She denies respiratory, cardiac, or G.I. problems. Past Medical History Past Medical History: COPD, Diabetes Mellitus, GERD/Reflux, Hypertension, Musculoskeletal Disorder, Osteoarthritis (OA), Sleep Apnea/CPAP/BIPAP, Thyroid Disorder Additional Past Medical History / Comment(s): has CPAP. NEUROPATHY LEGS & FEET. CROHNS DISEASE, IBS. HIATAL HERNIA. LOW BACK PAIN, SMALL THYROID NODULE. environmental allergies/receives allergy shots. 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 History of Any Multi-Drug Resistant Organisms: None Reported Past Surgical History: Adenoidectomy, Appendectomy, Cholecystectomy, Tonsillectomy, Tubal Ligation Additional Past Surgical History / Comment(s): Colonoscopy(next after 2yr) with EGD 2020, Nasal Surgery(Fx), SINUS SURGERY W/ TONSILS. temo carpal tunnel surgery Past Anesthesia/Blood Transfusion Reactions: No Reported Reaction Past Psychological History: Anxiety Additional Psychological History / Comment(s): R/T STRESS. Smoking Status: Former smoker Past Alcohol Use History: Rare (1 per year) Additional Past Alcohol Use History / Comment(s): Quit smoking in 2014, smoked since age 15, < 1 PPD. Past Drug Use History: None Reported Additional History: She is and is not seeing anybody at this time and has not been sexually active in recent years. - Past Family History Mother Family Medical History: No Reported History Additional Family Medical History / Comment(s): Heart disease. Father Additional Family Medical History / Comment(s): BRAIN ANEURYSM Brother(s) Family Medical History: Diabetes Mellitus Medications and Allergies Home Medications Medication Instructions Recorded Confirmed Type lisinopriL [Zestril] 15 mg PO QAM 11/27/13 04/06/21 History Omeprazole 20 mg PO BID 12/29/15 04/06/21 History Gabapentin [Neurontin] 600 mg PO TID 02/26/17 04/06/21 History Dicyclomine [Bentyl] 10 mg PO TID 04/29/17 04/06/21 History Magnesium Chloride [Slow-Mag] 128 mg PO DAILY 04/29/17 04/06/21 History Cyanocobalamin [Vitamin B-12] 500 mcg PO DAILY 11/28/18 04/06/21 History Cholecalciferol [Vitamin D3 (25 2,000 unit PO DAILY 01/23/19 04/06/21 History Mcg = 1000 Iu)] DULoxetine HCL [Cymbalta] 60 mg PO DAILY 02/03/20 04/06/21 History Ferrous Sulfate [Iron (65 MG 325 mg PO DAILY 02/03/20 04/06/21 History Elemental)] Montelukast [Singulair] 10 mg PO DAILY 02/03/20 04/06/21 History Omalizumab [Xolair] 300 mg SQ Q28D 02/03/20 04/06/21 History Pravastatin Sodium [Pravachol] 20 mg PO DAILY 02/05/20 04/06/21 History Albuterol Sulfate [Proair Hfa] 1 - 2 puff INHALATION Q6HR PRN 12/31/20 04/06/21 History EPINEPHrine (Auto Inject) [Epipen] 0.3 mg IM ONCE PRN 12/31/20 04/06/21 History Fluticasone Propionate [Flovent 2 puff INHALATION BID 12/31/20 04/06/21 History Hfa 220 mcg] Insulin Glargine [Lantus Vial] 50 unit SQ HS 12/31/20 04/06/21 History Liraglutide [Victoza 3-Marv] 1.8 mg SQ DAILY 12/31/20 04/06/21 History Mesalamine [Lialda] 2.4 gm PO BID 12/31/20 04/06/21 History Pioglitazone [Actos] 15 mg PO DAILY 12/31/20 04/06/21 History Repaglinide [Prandin] 0.5 mg PO AC-BRKFST 12/31/20 04/06/21 History dilTIAZem HCL [dilTIAZem HCL 24Hr 10 mg PO DAILY 04/06/21 04/06/21 History ER (Xr)] Allergies Allergy/AdvReac Type Severity Reaction Status Date / Time No Known Allergies Allergy Verified 12/31/20 15:23 Exam Vital Signs Temp Pulse Resp BP Pulse Ox 04/06/21 08:58 98.3 F 98 18 123/79 98 Intake and Output 04/05/21 04/06/21 04/06/21 22:59 06:59 14:59 Other: Weight 131.542 kg Height 5 feet 6 inches, weight 290 pounds, BMI 46.8. This is a well-developed well-nourished obese white female who is alert and oriented times 3 in no acute distress. HEENT: Within normal limits. NECK: Supple without mass or thyromegaly. CHEST AND LUNGS: Clear to auscultation. HEART: Regular rate and rhythm. BREASTS: Are without mass or discharge. AXILLARY EXAM: Negative for adenopathy. BACK: Negative for CVA tenderness. ABDOMEN: Soft, obese, nontender, without palpable masses. PELVIC EXAM: Normal external genitalia. Cervix and vagina appear normal. There is no unusual discharge. There is no evidence of prolapse. The uterus is midposition, nongravid size and nontender. There are no palpable adnexal masses or tenderness. Bimanual examination is somewhat limited secondary to her size. RECTAL EXAM: Rectovaginal exam is negative for mass or tenderness and is negative for occult blood. EXTREMITIES: Nontender. IMPRESSION: 1. 55-year-old menopausal female with normal gynecologic exam. 2. Multiple medical problems. PLAN: 1. Pap smear cotest was performed. 2. Self breast awareness was discussed with the patient. We have also discussed symptoms associated with inflammatory breast cancer. 3. Screening mammogram will be done today. 4. Osteoporosis prevention was discussed. I have stressed the importance of adequate calcium, vitamin D and regular exercise. Recommended amounts of calcium and vitamin D were also discussed. Bone density testing was done through her PCP on 04/07/2020 and was normal. I have recommended repeating bone density testing after about 5 years. 5. She has completed her Covid vaccination series and plans to get a booster in the near future. 6. She was advised to return in one year for her annual well woman exam.
--- NOTE | 2021-04-07 14:36 | MM ---
Reason for exam: screening (asymptomatic). Last mammogram was performed 1 year ago. History: Patient is postmenopausal. Physical Findings: A clinical breast exam by your physician is recommended on an annual basis and results should be correlated with mammographic findings. MG Screening Mammo w CAD Bilateral CC and MLO view(s) were taken. Prior study comparison: April 07, 2020, bilateral MG screening mammo w CAD. November 25, 2018, bilateral MG screening mammo w CAD. There are scattered fibroglandular densities. No significant changes when compared with prior studies. ASSESSMENT: Benign, BI-RAD 2 RECOMMENDATION: Routine screening mammogram of both breasts in 1 year.
== END ==
LOC: WWCWWP 08:53
PROVIDERS: ATTEND Obstetrics & Gynecology
DX: Z01.419 Encounter for gynecological examination (general) (routine) without abnormal findings (principal); Z12.31 Encounter for screening mammogram for malignant neoplasm of breast; J44.9 Chronic obstructive pulmonary disease, unspecified; K21.9 Gastro-esophageal reflux disease without esophagitis; I10 Essential (primary) hypertension; M19.90 Unspecified osteoarthritis, unspecified site; E11.40 Type 2 diabetes mellitus with diabetic neuropathy, unspecified; F41.9 Anxiety disorder, unspecified; Z87.891 Personal history of nicotine dependence; Z79.4 Long term (current) use of insulin; Z79.51 Long term (current) use of inhaled steroids; Z79.899 Other long term (current) drug therapy
CPT/HCPCS: 77067

== ENCOUNTER 2021-09-06 17:06 | Emergency (ER) | payer MEDICARE, OTHER ==
[2021-09-06 17:40] VITALS: BP 115/59; PULSE 101; RESP 18; TEMP 98.5
--- NOTE | 2021-09-06 18:27 | XR ---
EXAMINATION TYPE: XR shoulder complete RT DATE OF EXAM: 09/06/2021 COMPARISON: 2 views HISTORY: Pain TECHNIQUE: 3 views FINDINGS: There is calcification at the greater tuberosity of the humerus. I see no fracture nor disl ocation. Joint spaces are normal. AC joint is intact. IMPRESSION: Calcific tendinitis. No fracture seen.
--- NOTE | 2021-09-06 18:32 | XR ---
EXAMINATION TYPE: XR hand complete RT DATE OF EXAM: 09/06/2021 COMPARISON: NONE HISTORY: Pain TECHNIQUE: 3 views FINDINGS: The metacarpals are intact. Fingers are intact. I see no fracture nor dislocation. IMPRESSION: Negative right hand exam. No fracture
--- NOTE | 2021-09-06 18:33 | XR ---
EXAMINATION TYPE: XR elbow complete RT DATE OF EXAM: 09/06/2021 COMPARISON: NONE HISTORY: Pain TECHNIQUE: 3 views FINDINGS: I see no fracture nor dislocation. Joint spaces are normal. There is some posterior soft ti ssue swelling. There is no sign of elbow joint effusion. IMPRESSION: Soft tissue swelling. No fracture.
--- NOTE | 2021-09-06 18:42 | ED ---
General Adult HPI - General Chief complaint: Extremity Injury, Upper Stated complaint: Fall-R arm injury Time Seen by Provider: 09/06/21 17:40 Source: patient Mode of arrival: ambulatory Limitations: no limitations - History of Present Illness Initial comments: 56-year-old female with past medical history of COPD, diabetes presents to the emergency Department with right hand, right elbow and right shoulder pain. She fell off of her daughter's porch and down 3 steps. Denies hitting her head or losing consciousness. She denies any neck or back pain. States that she fell onto her right arm. Has majority of the pain in the hand, elbow and shoulder. Denies any wrist pain. She did not take any medications for her pain. She denies syncopal episode. No pain in her lower extremity. Denies any chest pain or shortness of breath. Patient is not on any blood thinners. No other alleviating, precipitating or modifying factors - Related Data Home Medications Medication Instructions Recorded Confirmed lisinopriL [Zestril] 15 mg PO QAM 11/27/13 04/06/21 Omeprazole 20 mg PO BID 12/29/15 04/06/21 Gabapentin [Neurontin] 600 mg PO TID 02/26/17 04/06/21 Dicyclomine [Bentyl] 10 mg PO TID 04/29/17 04/06/21 Magnesium Chloride [Slow-Mag] 128 mg PO DAILY 04/29/17 04/06/21 Cyanocobalamin [Vitamin B-12] 500 mcg PO DAILY 11/28/18 04/06/21 Cholecalciferol [Vitamin D3 (25 2,000 unit PO DAILY 01/23/19 04/06/21 Mcg = 1000 Iu)] DULoxetine HCL [Cymbalta] 60 mg PO DAILY 02/03/20 04/06/21 Ferrous Sulfate [Iron (65 MG 325 mg PO DAILY 02/03/20 04/06/21 Elemental)] Montelukast [Singulair] 10 mg PO DAILY 02/03/20 04/06/21 Omalizumab [Xolair] 300 mg SQ Q28D 02/03/20 04/06/21 Pravastatin Sodium [Pravachol] 20 mg PO DAILY 02/05/20 04/06/21 Albuterol Sulfate [Proair Hfa] 1 - 2 puff INHALATION Q6HR PRN 12/31/20 04/06/21 EPINEPHrine (Auto Inject) [Epipen] 0.3 mg IM ONCE PRN 12/31/20 04/06/21 Fluticasone Propionate [Flovent 2 puff INHALATION BID 12/31/20 04/06/21 Hfa 220 mcg] Insulin Glargine [Lantus Vial] 50 unit SQ HS 12/31/20 04/06/21 Liraglutide [Victoza 3-Marv] 1.8 mg SQ DAILY 12/31/20 04/06/21 Mesalamine [Lialda] 2.4 gm PO BID 12/31/20 04/06/21 Pioglitazone [Actos] 15 mg PO DAILY 12/31/20 04/06/21 Repaglinide [Prandin] 0.5 mg PO AC-BRKFST 12/31/20 04/06/21 dilTIAZem HCL [dilTIAZem HCL 24Hr 10 mg PO DAILY 04/06/21 04/06/21 ER (Xr)] Previous Rx's Medication Instructions Recorded Acetaminophen [Acetaminophen 8 650 mg PO Q8H PRN #20 tab 09/06/21 Hour] Ibuprofen [Motrin] 600 mg PO Q8HR PRN #20 tab 09/06/21 Allergies Allergy/AdvReac Type Severity Reaction Status Date / Time No Known Allergies Allergy Verified 09/06/21 17:40 Review of Systems ROS Statement: Those systems with pertinent positive or pertinent negative responses have been documented in the HPI. ROS Other: All systems not noted in ROS Statement are negative. Past Medical History Past Medical History: Diabetes Mellitus Additional Past Medical History / Comment(s): has CPAP. NEUROPATHY LEGS & FEET. CROHNS DISEASE, IBS. HIATAL HERNIA. LOW BACK PAIN, SMALL THYROID NODULE. environmental allergies/receives allergy shots History of Any Multi-Drug Resistant Organisms: None Reported Past Surgical History: Adenoidectomy, Appendectomy, Cholecystectomy, Tonsillectomy, Tubal Ligation Additional Past Surgical History / Comment(s): Colonoscopy, Nasal Surgery(Fx), SINUS SURGERY W/ TONSILS. temo carpal tunnel surgery Past Anesthesia/Blood Transfusion Reactions: No Reported Reaction Past Psychological History: Anxiety Smoking Status: Former smoker Past Alcohol Use History: Rare Past Drug Use History: None Reported - Past Family History Mother Additional Family Medical History / Comment(s): Heart disease. Father Additional Family Medical History / Comment(s): BRAIN ANEURYSM Brother(s) Family Medical History: Diabetes Mellitus General Exam Limitations: no limitations General appearance: alert, in no apparent distress Head exam: Present: atraumatic, normocephalic, normal inspection Eye exam: Present: normal appearance, PERRL, EOMI. Absent: scleral icterus, conjunctival injection, periorbital swelling ENT exam: Present: normal exam, mucous membranes moist Neck exam: Present: normal inspection. Absent: tenderness, meningismus, lymphadenopathy Respiratory exam: Present: normal lung sounds bilaterally. Absent: respiratory distress, wheezes, rales, rhonchi, stridor Cardiovascular Exam: Present: regular rate, normal rhythm, normal heart sounds. Absent: systolic murmur, diastolic murmur, rubs, gallop, clicks GI/Abdominal exam: Present: soft, normal bowel sounds. Absent: distended, tenderness, guarding, rebound, rigid Extremities exam: Present: full ROM, tenderness (mild tenderness radial aspect of right elbow. no obvious deformity. No joint effusion. normal ROM. 2+ DP and PT pulses), normal capillary refill. Absent: pedal edema, joint swelling, calf tenderness Back exam: Present: normal inspection Neurological exam: Present: alert, oriented X3, CN II-XII intact Psychiatric exam: Present: normal affect, normal mood Skin exam: Present: warm, dry, intact, other (few abrasions and eccymosis over the dorsal aspect of the forearm. no obvious deformity.). Absent: rash Course Vital Signs 09/06/21 17:36 Temperature 98.5 F Pulse Rate 101 H Respiratory 18 Rate Blood Pressure 115/59 O2 Sat by Pulse 99 Oximetry Medical Decision Making - Medical Decision Making Upon arrival patient is placed into [facility] for evaluation. She is sent over for x- rays of her right elbow, hand and shoulder. X-rays are reviewed and negative for any acute fracture. This is discussed with the patient. Prescriptions for Motrin and Tylenol sent to the pharmacy. Instructed to take them as directed and follow-up with her primary care doctor. May need repeat imaging in 7-10 days if pain persists. Return for any new or worsening symptoms. Patient agreed with treatment plan she is discharged home in stable condition Disposition Clinical Impression: Fall, Right arm pain Disposition: HOME SELF-CARE Condition: Stable Instructions (If sedation given, give patient instructions): Elbow Sprain (ED), Hand Sprain (ED) Additional Instructions: Please follow up with your PCP in 2-4 days. Return to the ED for any new or worsening symptoms. Prescriptions: Acetaminophen [Acetaminophen 8 Hour] 650 mg PO Q8H PRN #20 tab PRN Reason: Pain Ibuprofen [Motrin] 600 mg PO Q8HR PRN #20 tab PRN Reason: Pain Is patient prescribed a controlled substance at d/c from ED?: No Referrals: Jeanine Peña MD [Primary Care Provider] - 1-2 days Time of Disposition: 18:41
== END 2021-09-06 18:48 | disposition home or self-care (01) ==
LOC: EC 17:06
DX: M79.601 Pain in right arm (principal); K21.9 Gastro-esophageal reflux disease without esophagitis; Z79.83 Long term (current) use of bisphosphonates; Z87.891 Personal history of nicotine dependence
CPT/HCPCS: 99283

== ENCOUNTER → 2021-09-12 | Outpatient (CLI) | payer MEDICARE, OTHER ==
--- NOTE | 2021-09-12 13:24 | XR ---
EXAMINATION TYPE: XR humerus RT, XR elbow complete RT DATE OF EXAM: 09/12/2021 CLINICAL HISTORY: Recent fall injury with pain TECHNIQUE: Two views of the right humerus are obtained. 3 views right elbow. COMPARISON: Prior right elbow x-ray 6 days ago. FINDINGS: There is no acute fracture or dislocation seen in the right humerus. Right shoulder joint appears grossly within normal limits. The overlying soft tissue appears within normal limits. Images of the right elbow show no acute displaced fracture. No abnormal fat pad signs are seen. Persi stent focal posterior subcutaneous opacity consistent with edema and/or hematoma level of distal macie derrek on lateral view not significantly changed from prior study. IMPRESSION: No acute fracture or dislocation is evident in the right elbow or humerus.
== END | disposition home or self-care (01) ==
LOC: RADXRMAIN 12:58
PROVIDERS: ATTEND Family Medicine
DX: S59.901A Unspecified injury of right elbow, initial encounter (principal); M25.521 Pain in right elbow; W19.XXXA Unspecified fall, initial encounter

== ENCOUNTER 2022-10-12 19:41 | Emergency (ER) | payer MEDICARE, OTHER ==
[2022-10-12] MEDS ORDERED: IBUPROFEN 600 MG TAB PO STA (20:11)
[2022-10-12] MEDS ORDERED: AMOXIC-POT CLAV 875-125MG 1 EACH TAB PO STA (20:22)
--- NOTE | 2022-10-12 20:34 | ED ---
General Adult HPI - General Chief complaint: Skin/Abscess/Foreign Body Stated complaint: Right hand pain Time Seen by Provider: 10/12/22 19:53 Source: patient, RN notes reviewed Mode of arrival: ambulatory Limitations: no limitations - History of Present Illness Initial comments: 57-year-old female presents emergency department chief complaint of cat sc ratches to her right hand which happened around 1100 today. She states that her cat recently got out in the yard and when she retrieved him in the yard he scratched her right hand multiple times. Patient has a history of diabetes. She states that she has not taken anything for pain. She states that she put peroxide on the areas. Denies fever, chills. Denies nausea, vomiting. - Related Data Home Medications Medication Instructions Recorded Confirmed lisinopriL [Zestril] 15 mg PO QAM 11/27/13 06/20/22 Omeprazole 20 mg PO BID 12/29/15 06/20/22 Gabapentin [Neurontin] 800 mg PO TID 02/26/17 06/20/22 Dicyclomine [Bentyl] 10 mg PO TID 04/29/17 06/20/22 Magnesium Chloride [Slow-Mag] 128 mg PO DAILY 04/29/17 06/20/22 Cyanocobalamin [Vitamin B-12] 500 mcg PO DAILY 11/28/18 06/20/22 Cholecalciferol [Vitamin D3 (25 2,000 unit PO DAILY 01/23/19 06/20/22 Mcg = 1000 Iu)] DULoxetine HCL [Cymbalta] 60 mg PO DAILY 02/03/20 06/20/22 Ferrous Sulfate [Iron (65 MG 325 mg PO DAILY 02/03/20 06/20/22 Elemental)] Montelukast [Singulair] 10 mg PO DAILY 02/03/20 06/20/22 Pravastatin Sodium [Pravachol] 20 mg PO DAILY 02/05/20 06/20/22 Albuterol Sulfate [Proair Hfa] 1 - 2 puff INHALATION Q6HR PRN 12/31/20 06/20/22 EPINEPHrine (Auto Inject) [Epipen] 0.3 mg IM ONCE PRN 12/31/20 06/20/22 Fluticasone Propionate [Flovent 2 puff INHALATION BID 12/31/20 06/20/22 Hfa 220 mcg] Insulin Glargine [Lantus Vial] 50 unit SQ HS 12/31/20 06/20/22 Pioglitazone [Actos] 15 mg PO DAILY 12/31/20 06/20/22 Repaglinide [Prandin] 0.5 mg PO AC-BRKFST 12/31/20 06/20/22 dilTIAZem HCL [dilTIAZem HCL 24Hr 10 mg PO DAILY 04/06/21 06/20/22 ER (Xr)] Balsalazide Disodium [Colazal] 750 mg PO DAILY 06/20/22 06/20/22 Previous Rx's Medication Instructions Recorded Amoxic-Pot Clav 875-125Mg 1 tab PO Q12HR #14 tab 10/12/22 [Augmentin 875-125] Allergies Allergy/AdvReac Type Severity Reaction Status Date / Time No Known Allergies Allergy Verified 10/12/22 19:45 Review of Systems ROS Statement: Those systems with pertinent positive or pertinent negative responses have been documented in the HPI. ROS Other: All systems not noted in ROS Statement are negative. Past Medical History Past Medical History: Diabetes Mellitus Additional Past Medical History / Comment(s): Type 2 diabetes. NEUROPATHY LEGS & FEET. CROHNS DISEASE, IBS. HIATAL HERNIA. LOW BACK PAIN, SMALL THYROID NODULE. Environmental allergies/receives allergy shots. PAST [employer]GER HISTORY: She has no history of STDs. History of Any Multi-Drug Resistant Organisms: None Reported Past Surgical History: Adenoidectomy, Appendectomy, Cholecystectomy, Tonsillectomy, Tubal Ligation Additional Past Surgical History / Comment(s): Colonoscopy, Nasal Surgery(Fx), SINUS SURGERY W/ TONSILS. temo carpal tunnel surgery. Eye surgery. Past Anesthesia/Blood Transfusion Reactions: No Reported Reaction Past Psychological History: Anxiety Smoking Status: Former smoker Past Alcohol Use History: Rare Past Drug Use History: None Reported - Past Family History Mother Additional Family Medical History / Comment(s): Heart disease. Father Additional Family Medical History / Comment(s): BRAIN ANEURYSM Brother(s) Family Medical History: Diabetes Mellitus General Exam Limitations: no limitations General appearance: alert, in no apparent distress Head exam: Present: atraumatic, normocephalic, normal inspection Eye exam: Present: normal appearance, PERRL, EOMI. Absent: scleral icterus, conjunctival injection, periorbital swelling ENT exam: Present: normal exam, mucous membranes moist Neck exam: Present: normal inspection. Absent: tenderness, meningismus, lymphadenopathy Respiratory exam: Present: normal lung sounds bilaterally. Absent: respiratory distress, wheezes, rales, rhonchi, stridor Cardiovascular Exam: Present: regular rate, normal rhythm, normal heart sounds. Absent: systolic murmur, diastolic murmur, rubs, gallop, clicks GI/Abdominal exam: Present: soft, normal bowel sounds. Absent: distended, tenderness, guarding, rebound, rigid Extremities exam: Present: normal inspection, full ROM, normal capillary refill, other (Multiple scratches to the right hand, mild swelling to the second digit). Absent: tenderness, pedal edema, joint swelling, calf tenderness Back exam: Present: normal inspection Neurological exam: Present: alert, oriented X3 Psychiatric exam: Present: normal affect, normal mood Skin exam: Present: warm, dry, other (Multiple scratches to the right hand, swel ling to the right second digit of the hand) Course Vital Signs 10/12/22 10/12/22 19:43 21:30 Temperature 97.7 F 99.0 F Pulse Rate 106 H 93 Respiratory 20 19 Rate Blood Pressure 122/70 114/73 O2 Sat by Pulse 98 97 Oximetry Medical Decision Making - Medical Decision Making Was pt. sent in by a medical professional or institution (ANAI Quinn, DIGITAL SPECIALIST, urgent care, hospital, or usp...) When possible be specific @ -No Did you speak to anyone other than the patient for history (EMS, parent, family, police, friend...)? What history was obtained from this source @ -No Did you review nursing and triage notes (agree or disagree)? Why? @ -I reviewed and agree with nursing and triage notes Were old charts reviewed (outside hosp., previous admission, EMS record, old EKG, old radiological studies, urgent care reports/EKG's, usp records)? Report findings @ -No old charts were reviewed Differential Diagnosis (chest pain, altered mental status, abdominal pain women, abdominal pain men, vaginal bleeding, weakness, fever, dyspnea, syncope, headache, dizziness, GI bleed, back pain, seizure, CVA, palpatations, mental health, musculoskeletal)? @ -Cat scratch, cat scratch cellulitis, cat bite, this list is not all- inclusive EKG interpreted by me (3pts min.). @ -None X-rays interpreted by me (1pt min.). @ -None done CT interpreted by me (1pt min.). @ -None done U/S interpreted by me (1pt. min.). @ -None done What testing was considered but not performed or refused? (CT, X-rays, U/S, labs)? Why? @ -X-rays were considered but the scratches appear to be very superficial with no evidence of foreign body What meds were considered but not given or refused? Why? @ -None Did you discuss the management of the patient with other professionals (professionals i.e. , PA, DIGITAL SPECIALIST, lab, RT, psych nurse, social insurance specialist, home health travel ot, teacher, driver license reviewing officer, gearcase assembler)? Give summary @ -No Was smoking cessation discussed for >3mins.? @ -No Was critical care preformed (if so, how long)? @ -No Were there social determinants of health that impacted care today? How? (Homelessness, low income, unemployed, alcoholism, drug addiction, transportation, low edu. Level, literacy, decrease access to med. care, snf, rehab)? @ -No Was there de-escalation of care discussed even if they declined (Discuss DNR or withdrawal of care, Hospice)? DNR status @ -No What co-morbidities impacted this encounter? (DM, HTN, Smoking, COPD, CAD, Cancer, CVA, ARF, Chemo, Hep., AIDS, mental health diagnosis, sleep apnea, morbid obesity)? @ -None Was patient admitted / discharged? Hospital course, mention meds given and route, prescriptions, significant lab abnormalities, going to OR and other pertinent info. @ -Discharged. Patient presented to emergency department chief complaint of cat scratches on her right hand. She states that it was her own cat that scratched her around 11:00 AM and she reports some pain and swelling. She has multiple scratches to her right hand, mild swelling to her right second digit. Patient was given a dose of Augmentin and Motrin in the emergency department and prescription was sent patient's pharmacy. Patient instructed to take antibiotics to completion and return to the emergency department for new or worsening symptoms, fever. Patient discharged in stable condition. Case discussed with my attending, Dr. Trachy Undiagnosed new problem with uncertain prognosis? @ -No Drug Therapy requiring intensive monitoring for toxicity (Heparin, Nitro, Insulin, Cardizem)? @ -No Were any procedures done? @ -No Diagnosis/symptom? @ -Cat scratch Acute, or Chronic, or Acute on Chronic? @ -Acute Uncomplicated (without systemic symptoms) or Complicated (systemic symptoms)? @ -Uncomplicated Side effects of treatment? @ -No Exacerbation, Progression, or Severe Exacerbation? @ -No Poses a threat to life or bodily function? How? (Chest pain, [place], [place], pneumonia, PE, COPD, DKA, ARF, appy, cholecystitis, CVA, Diverticulitis, Homicidal, Suicidal, threat to staff... and all critical care pts) @ -No Disposition Clinical Impression: Cat scratch Disposition: HOME SELF-CARE Condition: Stable Instructions (If sedation given, give patient instructions): Acute Wound Care (ED) Additional Instructions: Please take antibiotics to completion. Take Tylenol and Motrin as needed for pain. Follow-up with your primary care provider. Return to the emergency department for new or worsening symptoms. Prescriptions: Amoxic-Pot Clav 875-125Mg [Augmentin 875-125] 1 tab PO Q12HR #14 tab Is patient prescribed a controlled substance at d/c from ED?: No Referrals: Jeanine Peña MD [Primary Care Provider] - 1-2 days Time of Disposition: 20:45
[2022-10-12 21:35] VITALS: BP 114/73; PULSE 93; RESP 19; TEMP 99
== END 2022-10-12 21:35 | disposition home or self-care (01) ==
LOC: EC 19:41
DX: M79.641 Pain in right hand (principal); E11.9 Type 2 diabetes mellitus without complications; F41.9 Anxiety disorder, unspecified; Z79.4 Long term (current) use of insulin; Z79.51 Long term (current) use of inhaled steroids; Z79.84 Long term (current) use of oral hypoglycemic drugs; Z79.899 Other long term (current) drug therapy; Z87.891 Personal history of nicotine dependence; Z90.49 Acquired absence of other specified parts of digestive tract; W55.03XA Scratched by cat, initial encounter
CPT/HCPCS: 99283

== ENCOUNTER 2022-10-14 19:58 | Emergency (ER) | payer MEDICARE, OTHER ==
[2022-10-14 20:43] VITALS: TEMP 98.5
--- NOTE | 2022-10-14 21:26 | ED ---
General Adult HPI - General Source: patient Mode of arrival: ambulatory <Jm Mera - Last Filed: 10/14/22 21:11> - General Source: RN notes reviewed <Karon Griggs - Last Filed: 10/15/22 03:23> - General Chief complaint: Recheck/Abnormal Lab/Rx Stated complaint: right hand wound-revisit - History of Present Illness Initial comments: 57-year-old female presenting to the ED with a chief complaint of right hand scratches. Patient previously here 2 days ago and was prescribed Augmentin. D espite this patient states that she feels as if it is getting worse. States that the wounds are now draining and she is having increasing pain of her right hand. (Jm Mera) Quick note reviewed: When I evaluated the patient this is a 57-year-old female who presents to the emergency department with a chief complaint of right hand problem. Patient was seen and evaluated on 10/12/2022 after her cat latched her right hand due to getting scared. She was seen and evaluated at that time and was prescribed Augmentin. She has been taking her antibiotics as prescribed. Today she presents with worsening swelling, pain, purulent discharge the site. She denies any fevers (Karon Griggs) - Related Data Home Medications Medication Instructions Recorded Confirmed lisinopriL [Zestril] 15 mg PO QAM 11/27/13 06/20/22 Omeprazole 20 mg PO BID 12/29/15 06/20/22 Gabapentin [Neurontin] 800 mg PO TID 02/26/17 06/20/22 Dicyclomine [Bentyl] 10 mg PO TID 04/29/17 06/20/22 Magnesium Chloride [Slow-Mag] 128 mg PO DAILY 04/29/17 06/20/22 Cyanocobalamin [Vitamin B-12] 500 mcg PO DAILY 11/28/18 06/20/22 Cholecalciferol [Vitamin D3 (25 2,000 unit PO DAILY 01/23/19 06/20/22 Mcg = 1000 Iu)] DULoxetine HCL [Cymbalta] 60 mg PO DAILY 02/03/20 06/20/22 Ferrous Sulfate [Iron (65 MG 325 mg PO DAILY 02/03/20 06/20/22 Elemental)] Montelukast [Singulair] 10 mg PO DAILY 10/06/20 02/21/23 Pravastatin Sodium [Pravachol] 20 mg PO DAILY 02/05/20 06/20/22 Albuterol Sulfate [Proair Hfa] 1 - 2 puff INHALATION Q6HR PRN 12/31/20 06/20/22 EPINEPHrine (Auto Inject) [Epipen] 0.3 mg IM ONCE PRN 12/31/20 06/20/22 Fluticasone Propionate [Flovent 2 puff INHALATION BID 12/31/20 06/20/22 Hfa 220 mcg] Insulin Glargine [Lantus Vial] 50 unit SQ HS 12/31/20 06/20/22 Pioglitazone [Actos] 15 mg PO DAILY 12/31/20 06/20/22 Repaglinide [Prandin] 0.5 mg PO AC-BRKFST 12/31/20 06/20/22 dilTIAZem HCL [dilTIAZem HCL 24Hr 10 mg PO DAILY 04/06/21 06/20/22 ER (Xr)] Balsalazide Disodium [Colazal] 750 mg PO DAILY 06/20/22 06/20/22 Previous Rx's Medication Instructions Recorded Amoxic-Pot Clav 875-125Mg 1 tab PO Q12HR #14 tab 10/12/22 [Augmentin 875-125] Azithromycin [Zithromax] 250 mg PO DAILY 5 Days #5 tab 10/15/22 Allergies Allergy/AdvReac Type Severity Reaction Status Date / Time No Known Allergies Allergy Verified 10/12/22 19:45 Review of Systems ROS Other: All systems not noted in ROS Statement are negative. <Jm Mera - Last Filed: 10/14/22 21:11> ROS Other: All systems not noted in ROS Statement are negative. <Karon Griggs - Last Filed: 10/15/22 03:23> ROS Statement: Those systems with pertinent positive or pertinent negative responses have been documented in the HPI. Past Medical History Past Medical History: Diabetes Mellitus Additional Past Medical History / Comment(s): Type 2 diabetes. NEUROPATHY LEGS & FEET. CROHNS DISEASE, IBS. HIATAL HERNIA. LOW BACK PAIN, SMALL THYROID NODULE. Environmental allergies/receives allergy shots. 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 History of Any Multi-Drug Resistant Organisms: None Reported Past Surgical History: Adenoidectomy, Appendectomy, Cholecystectomy, Tonsillectomy, Tubal Ligation Additional Past Surgical History / Comment(s): Colonoscopy, Nasal Surgery(Fx), SINUS SURGERY W/ TONSILS. temo carpal tunnel surgery. Eye surgery. Past Anesthesia/Blood Transfusion Reactions: No Reported Reaction Past Psychological History: Anxiety Smoking Status: Former smoker Past Alcohol Use History: Rare Past Drug Use History: None Reported - Past Family History Mother Additional Family Medical History / Comment(s): Heart disease. Father Additional Family Medical History / Comment(s): BRAIN ANEURYSM Brother(s) Family Medical History: Diabetes Mellitus <Jm Mera - Last Filed: 10/14/22 21:11> General Exam <Karon Griggs - Last Filed: 10/15/22 03:23> - General Exam Comments Initial Comments: General: Alert, in no acute distress, patient remains afebrile Head: atraumatic normocephalic. Eyes PERRL, EOMI intact, mucous membranes moist Respiratory: Lungs clear to auscultation bilaterally Cardiovascular: Heart rate regular rate and rhythm Abdominal: Soft without guarding or rebound Extremities: Normal inspection with full range of motion and normal capillary refill, generalized swelling to right hand, limited range of motion secondary to pain, multiple areas of scratches that are ecchymotic with small amount of purulent discharge Neuroogic: alert and oriented 3, CN II-XII intact, able to ambulate with steady gait Skin: warm dry and intact with normal color (Karon Griggs) Course Vital Signs 10/14/22 10/15/22 20:40 02:13 Temperature 98.5 F Pulse Rate 110 H 94 Respiratory 16 18 Rate Blood Pressure 124/65 131/55 O2 Sat by Pulse 96 94 L Oximetry Medical Decision Making - Lab Data Result diagrams: 10/14/22 22:11 <Karon Griggs - Last Filed: 10/15/22 03:23> - Medical Decision Making Was pt. sent in by a medical professional or institution (, PA, BIO[employer] TECH[employer]Y MANAGER, urgent care, hospital, or snf...) When possible be specific @ -[No] Did you speak to anyone other than the patient for history (EMS, parent, family, police, friend...)? What history was obtained from this source @ -[No] Did you review nursing and triage notes (agree or disagree)? Why? @ -[I reviewed and agree with nursing and triage notes] Were old charts reviewed (outside hosp., previous admission, EMS record, old EKG, old radiological studies, urgent care reports/EKG's, snf records)? Report findings @ -[No old charts were reviewed] Differential Diagnosis (chest pain, altered mental status, abdominal pain women, abdominal pain men, vaginal bleeding, weakness, fever, dyspnea, syncope, head ache, dizziness, GI bleed, back pain, seizure, CVA, palpatations, mental health, musculoskeletal)? @ -[not applicable] EKG interpreted by me (3pts min.). @ -[As above] X-rays interpreted by me (1pt min.). @ Hand x-ray negative for any evidence of osteomyelitis or foreign body, there is generalized swelling CT interpreted by me (1pt min.). @ -[None done] U/S interpreted by me (1pt. min.). @ -[None done] What testing was considered but not performed or refused? (CT, X-rays, U/S, labs)? Why? @ -[None] What meds were considered but not given or refused? Why? @ -[None] Did you discuss the management of the patient with other professionals (professionals i.e. , PA, BIOFUELS TECHNOLOGY MANAGER, lab, RT, psych nurse, social economist, financial supervisor, teacher, radiation officer, top case assembler)? Give summary @ -[No] Was smoking cessation discussed for >3mins.? @ -[No] Was critical care preformed (if so, how long)? @ -[No] Were there social determinants of health that impacted care today? How? (Homelessness, low income, unemployed, alcoholism, drug addiction, transportation, low edu. Level, literacy, decrease access to med. care, [facility], rehab)? @ -[No] Was there de-escalation of care discussed even if they declined (Discuss DNR or withdrawal of care, Hospice)? DNR status @ -[No] What co-morbidities impacted this encounter? (DM, HTN, Smoking, COPD, CAD, Cancer, CVA, ARF, Chemo, Hep., AIDS, mental health diagnosis, sleep apnea, morbid obesity)? @ -[None] Was patient admitted / discharged? Hospital course, mention meds given and [place], prescriptions, significant lab abnormalities, going to OR and other pertinent info. @ -Discharged. This is a pleasant 57-year-old female who presents to the emergency department for wound recheck. Patient had a thorough history and physical exam performed on the emergency department physical exam reveals generally swollen right hand with multiple scratches limited range of motion secondary to pain and swelling with ecchymosis inferiorly discharge noted. Alondra ent was instructed to stop taking Augmentin and was given a prescription for azithromycin. Return precautions were discussed at length. Case patient discharged in stable condition. Case discussed with Dr. Aleman who agrees with plan of care Undiagnosed new problem with uncertain prognosis? @ -[No] Drug Therapy requiring intensive monitoring for toxicity (Heparin, Nitro, Insulin, Cardizem)? @ -[No] Were any procedures done? @ -[No] Diagnosis/symptom? @ -Cat scratch Acute, or Chronic, or Acute on Chronic? @ -Acute Uncomplicated (without systemic symptoms) or Complicated (systemic symptoms)? @ -Uncomplicated Side effects of treatment? @ -[No] Exacerbation, Progression, or Severe Exacerbation? @ -[No] Poses a threat to life or bodily function? How? (Chest pain, [place], [place], pneumonia, PE, COPD, DKA, ARF, appy, cholecystitis, CVA, Diverticulitis, Homicidal, Suicidal, threat to staff... and all critical care pts) @ -Low likelihood (Karon Griggs) - Lab Data Lab Results 10/14/22 Range/Units 22:11 WBC 9.6 (3.8-10.6) k/uL RBC 4.51 (3.80-5.40) m/uL Hgb 12.1 (11.4-16.0) gm/dL Hct 37.7 (34.0-46.0) % MCV 83.6 (80.0-100.0) fL MCH 26.9 (25.0-35.0) pg MCHC 32.1 (31.0-37.0) g/dL RDW 14.6 (11.5-15.5) % Plt Count 353 (150-450) k/uL MPV 6.9 Neutrophils % 71 % Lymphocytes % 20 % Monocytes % 6 % Eosinophils % 1 % Basophils % 0 % Neutrophils # 6.8 (1.3-7.7) k/uL Lymphocytes # 1.9 (1.0-4.8) k/uL Monocytes # 0.6 (0-1.0) k/uL Eosinophils # 0.1 (0-0.7) k/uL Basophils # 0.0 (0-0.2) k/uL Disposition <Jm Mera - Last Filed: 10/14/22 21:11> Is patient prescribed a controlled substance at d/c from ED?: No Time of Disposition: 01:26 <Karon Griggs - Last Filed: 10/15/22 03:23> Clinical Impression: Cat scratch Disposition: HOME SELF-CARE Condition: Stable Additional Instructions: Please stop taking Augmentin and start taking azithromycin Please return to the nearest emergency department if symptoms worsen or persist Prescriptions: Azithromycin [Zithromax] 250 mg PO DAILY 5 Days #5 tab Referrals: Jeanine Peña MD [Primary Care Provider] - 1-2 days
--- NOTE | 2022-10-14 21:45 | XR ---
EXAMINATION TYPE: XR hand complete RT DATE OF EXAM: 10/14/2022 9:37 PM INDICATION: Patient age:Female; 57 years old; Reason for study: r/o osteo; [facility]. COMPARISON: Right hand radiograph 09/06/2021 TECHNIQUE: Frontal, lateral and oblique views of the right hand were obtained. FINDINGS: Normal alignment of the visualized joints. No acute osseous pathology is identified. Diffu se soft tissue swelling of the distal hand. No venous gas. No osseous erosions. No radiopaque foreign body. IMPRESSION: 1. No acute osseous pathology. No osseous erosions or radiopaque foreign body. 2. Diffuse soft tissue swelling of the dorsal hand
[2022-10-14 22:36] LABS: Basophils % (A) 0 %; Eosinophils # (A) 0.1 k/uL (0-0.7); Eosinophils % (A) 1 %; HCT 37.7 % (34.0-46.0); HGB 12.1 gm/dL (11.4-16.0); Lymphocytes # (A) 1.9 k/uL (1.0-4.8); Lymphocytes % (A) 20 %; MCH 26.9 pg (25.0-35.0); MCHC 32.1 g/dL (31.0-37.0); MCV 83.6 fL (80.0-100.0); Mean Platelet Volume 6.9; Monocytes # (A) 0.6 k/uL (0-1.0); Monocytes % (A) 6 %; Neutrophils # (A) 6.8 k/uL (1.3-7.7); Neutrophils % (A) 71 %; Platelet Count 353 k/uL (150-450); RBC 4.51 m/uL (3.80-5.40); RDW 14.6 % (11.5-15.5); WBC 9.6 k/uL (3.8-10.6)
[2022-10-15] MEDS ORDERED: AZITHROMYCIN 500 MG TAB PO STA (01:24)
[2022-10-15] MEDS ORDERED: IBUPROFEN 600 MG TAB PO STA (02:09)
[2022-10-15 02:13] VITALS: BP 131/55; PULSE 94; RESP 18
== END 2022-10-15 02:16 | disposition home or self-care (01) ==
LOC: EC 19:58
DX: S60.511A Abrasion of right hand, initial encounter (principal); E11.9 Type 2 diabetes mellitus without complications; F41.9 Anxiety disorder, unspecified; Z87.891 Personal history of nicotine dependence; Z79.4 Long term (current) use of insulin; Z79.51 Long term (current) use of inhaled steroids; Z79.84 Long term (current) use of oral hypoglycemic drugs; Z79.899 Other long term (current) drug therapy; W55.03XA Scratched by cat, initial encounter
CPT/HCPCS: 36415; 85025; 99283

== ENCOUNTER 2023-01-05 08:03 | Day surgery (SDC) | payer MEDICARE, OTHER ==
[2023-01-03 11:30] VITALS: BMI 50.3
[2023-01-05 08:16] VITALS: TEMP 98.1
[2023-01-05 08:29] LABS: Glucose,Whole Blood 91 mg/dL (70-110)
[2023-01-05] MEDS: LACTATED RINGERS 1,000 ML IV SCH ×2 (08:30→08:36)
[2023-01-05] MEDS ORDERED: PROPOFOL 10 MG/ML 20 ML VIAL IV ONE (08:38)
--- NOTE | 2023-01-05 08:58 | P.PCN ---
Date of Procedure: 01/05/23 Procedure(s) Performed: BRIEF HISTORY: Patient is a 57-year-old pleasant white female scheduled for an elective colonoscopy as a part of surveillance of long-standing history of Crohn's colitis diagnosed in 2013. Her last colonoscopy was 3 years ago which revealed patchy active colitis. Shee is maintained on an balsalazide 3 tablets 3 times daily clinical remission. PROCEDURE PERFORMED: Colonoscopy with random biopsy. PREOPERATIVE DIAGNOSIS: Long-standing history of Crohn's colitis. IV sedation per Anesthesia. PROCEDURE: After informed consent was obtained, the patient, was brought into the endoscopy unit. IV sedation was administered by Anesthesia under continuous monitoring. Digital rectal examination was normal. Initially the Olympus CF-160 flexible video colonoscope was then inserted in the rectum, gradually advanced into the cecum without any difficulty. Careful examination was performed as the scope was gradually being withdrawn. Ileocecal valve and the appendiceal orifice were visualized and appeared normal. Prep was excellent. Mucosa of the cecum, ascending colon, transverse colon, descending colon, sigmoid colon, and rectum appeared normal. Biopsies were done from cecum to rectum at every 10 cm intervals to rule out dysplasia. Retroflexion was performed in the rectum and no lesions were seen. The patient tolerated the procedure well. IMPRESSION: Normal-appearing colon from rectum to cecum with no evidence of active colitis or colorectal neoplasia . RECOMMENDATIONS: Findings of this examination were discussed with the patient as well as a family. She was advised to follow with the biopsy results.. If the biopsy does not show any evidence of dysplasia, she can have a repeat colonoscopy in 2 years
[2023-01-05 09:14] VITALS: BP 102/69; PULSE 84; RESP 17
== END 2023-01-05 09:32 | disposition home or self-care (01) ==
LOC: ORWHC2ENDO 08:03
PROVIDERS: ATTEND Internal Medicine Gastroenterology
DX: K63.5 Polyp of colon (principal); I10 Essential (primary) hypertension; E78.5 Hyperlipidemia, unspecified; E11.40 Type 2 diabetes mellitus with diabetic neuropathy, unspecified; G47.33 Obstructive sleep apnea (adult) (pediatric); J45.909 Unspecified asthma, uncomplicated; K50.90 Crohn's disease, unspecified, without complications; F41.9 Anxiety disorder, unspecified; K21.9 Gastro-esophageal reflux disease without esophagitis; Z79.84 Long term (current) use of oral hypoglycemic drugs; Z79.899 Other long term (current) drug therapy; Z79.85 Long-term (current) use of injectable non-insulin antidiabetic drugs; Z98.890 Other specified postprocedural states; Z79.83 Long term (current) use of bisphosphonates; Z79.891 Long term (current) use of opiate analgesic; Z79.51 Long term (current) use of inhaled steroids; Z79.811 Long term (current) use of aromatase inhibitors
CPT/HCPCS: 88305; 45380; J2704

== ENCOUNTER 2023-07-29 08:26 | Emergency (ER) | payer MEDICARE, OTHER ==
--- NOTE | 2023-07-29 08:46 | ED ---
Eye Problem HPI - General Chief complaint: Eye Problems Stated complaint: Eye infection Time Seen by Provider: 07/29/23 08:35 Source: patient, RN notes reviewed Mode of arrival: ambulatory Limitations: no limitations - History of Present Illness Initial comments: This is a 58-year-old female who presents to the emergency department for left eye redness. States that when she woke up she noticed swelling and redness to the left eyelid. She did have some drainage and crusting of the eyelids earlier. Denies any substantial pain associated with this. Also denies any difficulty with her vision. She has not had any fevers/chills or sick contacts. MD chief complaint: eye redness - Related Data Home Medications Medication Instructions Recorded Confirmed lisinopriL [Zestril] 15 mg PO QAM 11/27/13 01/05/23 Omeprazole 20 mg PO BID 12/29/15 01/05/23 Gabapentin [Neurontin] 800 mg PO TID 02/26/17 01/05/23 Dicyclomine [Bentyl] 10 mg PO TID 04/29/17 01/05/23 Magnesium Chloride [Slow-Mag] 128 mg PO DAILY 04/29/17 01/05/23 Cyanocobalamin [Vitamin B-12] 500 mcg PO DAILY 11/28/18 01/05/23 Cholecalciferol [Vitamin D3 (25 2,000 unit PO DAILY 01/23/19 01/05/23 Mcg = 1000 Iu)] DULoxetine HCL [Cymbalta] 60 mg PO DAILY 02/03/20 01/05/23 Ferrous Sulfate [Iron (65 MG 325 mg PO DAILY 02/03/20 01/05/23 Elemental)] Montelukast [Singulair] 10 mg PO HS 02/03/20 01/05/23 Pravastatin Sodium [Pravachol] 20 mg PO DAILY 02/05/20 01/05/23 Albuterol Sulfate [Proair Hfa] 1 - 2 puff INHALATION Q6HR PRN 12/31/20 01/05/23 EPINEPHrine (Auto Inject) [Epipen] 0.3 mg IM ONCE PRN 12/31/20 01/05/23 Fluticasone Propionate [Flovent 2 puff INHALATION BID 12/31/20 01/05/23 Hfa 220 mcg] Insulin Glargine [Lantus Vial] 36 unit SQ HS 12/31/20 01/05/23 Pioglitazone [Actos] 15 mg PO DAILY 12/31/20 01/05/23 Repaglinide [Prandin] 0.5 mg PO AC-BRKFST 12/31/20 01/05/23 Balsalazide Disodium [Colazal] 2,250 mg PO TID 06/20/22 01/05/23 Omalizumab [Xolair] 300 mg SQ Q30D 01/03/23 01/05/23 Oxybutynin ER [Ditropan XL] 10 mg PO DAILY 01/03/23 01/05/23 Semaglutide [Ozempic] 1 mg SQ FR 01/03/23 01/05/23 dilTIAZem HCL [dilTIAZem HCL 24Hr 120 mg PO DAILY 01/03/23 01/05/23 ER] metFORMIN HCL [Glucophage] 500 mg PO BID 01/03/23 01/05/23 Previous Rx's Medication Instructions Recorded Erythromycin Ophth Oint [Romycin 1 applic LEFT EYE Q4HR 7 Days #1 07/29/23 Ophth Oint] each Allergies Allergy/AdvReac Type Severity Reaction Status Date / Time No Known Allergies Allergy Verified 07/29/23 08:35 Review of Systems ROS Statement: Those systems with pertinent positive or pertinent negative responses have been documented in the HPI. ROS Other: All systems not noted in ROS Statement are negative. Past Medical History Past Medical History: Asthma, Diabetes Mellitus, GERD/Reflux, Hypertension, Sleep Apnea/CPAP/BIPAP Additional Past Medical History / Comment(s): Type 2 diabetes. NEUROPATHY LEGS & FEET. CROHNS DISEASE, IBS. HIATAL HERNIA. LOW BACK PAIN, SMALL THYROID NODULE. Environmental allergies/receives allergy shots. DOES NOT USE CPAP, History of Any Multi-Drug Resistant Organisms: None Reported Past Surgical History: Adenoidectomy, Appendectomy, Cholecystectomy, Tonsillectomy, Tubal Ligation Additional Past Surgical History / Comment(s): Colonoscopy, Nasal Surgery(Fx), SINUS SURGERY W/ TONSILS. temo carpal tunnel surgery. Eye surgery. Past Anesthesia/Blood Transfusion Reactions: No Reported Reaction Past Psychological History: Anxiety Smoking Status: Former smoker Past Alcohol Use History: None Reported Past Drug Use History: None Reported - Past Family History Mother Additional Family Medical History / Comment(s): Heart disease. Father Additional Family Medical History / Comment(s): BRAIN ANEURYSM Brother(s) Family Medical History: Cancer, Diabetes Mellitus General Exam Limitations: no limitations General appearance: alert, in no apparent distress Head exam: Present: atraumatic, normocephalic, normal inspection Eye exam: Present: other (Mild swelling and erythema of the left upper eyelid without conjunctival injection. Minor crusting of the lashes. No active drainage.) Respiratory exam: Present: normal lung sounds bilaterally. Absent: respiratory distress, wheezes, rales, rhonchi, stridor Cardiovascular Exam: Present: regular rate, normal rhythm, normal heart sounds. Absent: systolic murmur, diastolic murmur, rubs, gallop, clicks Neurological exam: Present: alert, oriented X3, CN II-XII intact Psychiatric exam: Present: normal affect, normal mood Course Vital Signs 07/29/23 08:32 Temperature 98.4 F Pulse Rate 68 Respiratory 18 Rate Blood Pressure 109/63 O2 Sat by Pulse 99 Oximetry Medical Decision Making - Medical Decision Making This is a 58-year-old female who presents to the emergency department for left eyelid redness. Was pt. sent in by a medical professional or institution? @ -No Did you speak to anyone other than the patient for history? @ -No Did you review nursing and triage notes? @ -Yes, and I agree, it is accurate with regards to the patient's symptoms. Were old charts reviewed? @ -No Differential Diagnosis? @ -Differential Eye Redness: Conjuncitivitis (viral, bacterial, allergic), corneal abrasion, foreign body, iritis, uveitis, keratitis, acute angle closure glaucoma, this is not meant to be an all-inclusive list. EKG interpreted by me (3pts min.)? @ -Not obtained X-rays interpreted by me (1pt min.)? @ -Not obtained CT interpreted by me (1pt min.)? @ -Not obtained U/S interpreted by me (1pt. min.)? @ -Not obtained What testing was considered but not performed? (CT, X-rays, U/S, labs)? Why? @ -None What meds were considered but not given? Why? @ -None Did you discuss the management of the patient with other professionals? @ -No Did you reconcile home meds? @ -No Was smoking cessation discussed for >3mins.? @ -No Was critical care preformed (if so, how long)? @ -No Were there social determinants of health that impacted care today? How? (Homelessness, low income, unemployed, alcoholism, drug addiction, transportat ion, low edu. Level, literacy, decrease access to med. care, long term, rehab)? @ -No Was there de-escalation of care discussed even if they declined? (Discuss DNR or withdrawal of care, Hospice)? @ -No What co-morbidities impacted this encounter? (DM, HTN, Smoking, COPD, CAD, Cancer, CVA, Hep., AIDS, mental health diagnosis, sleep apnea, morbid obesity)? @ -None Was patient admitted / discharged? @ -Discharged. Physical examination consistent with a blepharitis. She had no conjunctival injection or involvement of the eyeball itself. Prescription for erythromycin ophthalmic ointment provided with dosing instructions reviewed. Also advised warm compresses and gentle washing of the eye. Undiagnosed new problem with uncertain prognosis? @ -None Drug Therapy requiring intensive monitoring for toxicity (Heparin, Nitro, Insulin, Cardizem)? @ -None Were any procedures done? @ -None Diagnosis/symptom? @ -Blepharitis Acute, or Chronic, or Acute on Chronic? @ -Acute Uncomplicated (without systemic symptoms) or Complicated (systemic symptoms)? @ -Uncomplicated Side effects of treatment? @ -None Exacerbation, Progression, or Severe Exacerbation] @ -Not applicable Poses a threat to life or bodily function? @ -No Return precautions reviewed in depth, the patient is instructed to return to the emergency department with any new, worsening, or concerning symptoms. Patient verbalized understanding. This case was discussed in detail with the attending ED physician, Dr. Riddle. Presentation, findings, and treatment plan discussed in detail as well. Disposition Clinical Impression: Blepharitis, left eye Disposition: HOME SELF-CARE Instructions (If sedation given, give patient instructions): Blepharitis (ED) Additional Instructions: Return to the emergency department with any new, worsening, or concerning symptoms. Apply the erythromycin ointment to the left eyelid every 4-6 hours for 7 days. Apply warm compresses for 15 minutes about 4 times a day. You can also wash the eye with mild shampoo. Follow up with your primary care provider in 1-2 days. Prescriptions: Erythromycin Ophth Oint [Romycin Ophth Oint] 1 applic LEFT EYE Q4HR 7 Days #1 each Is patient prescribed a controlled substance at d/c from ED?: No Referrals: Jeanine Peña MD [Primary Care Provider] - 1-2 days Time of Disposition: 08:46
[2023-07-29 08:57] VITALS: BP 109/63; PULSE 68; RESP 18; TEMP 98.4
== END 2023-07-29 09:02 | disposition home or self-care (01) ==
LOC: EC 08:26
DX: H01.004 Unspecified blepharitis left upper eyelid (principal); Z87.891 Personal history of nicotine dependence
CPT/HCPCS: 99283

== ENCOUNTER → 2023-10-23 | Outpatient (CLI) | payer MEDICARE ==
[2023-10-23 16:18] VITALS: BP 143/80; PULSE 102; RESP 18; TEMP 98.7
--- NOTE | 2023-10-23 16:37 | P.HPOB ---
History of Present Illness H&P Date: 10/23/23 Chief Complaint: The patient is here for her routine gynecologic exam and ma mmogram. This is a 58-year-old -0-1-3 with an LMP of 2016. The patient is without gynecologic complaints. Review of Systems The patient has gained 7 pounds over the last year. She denies respiratory, cardiac, or G.I. problems. Past Medical History Past Medical History: Asthma, Diabetes Mellitus, GERD/Reflux, Hypertension, Sleep Apnea/CPAP/BIPAP Additional Past Medical History / Comment(s): Type 2 diabetes. NEUROPATHY LEGS & FEET. CROHNS DISEASE, IBS. HIATAL HERNIA. LOW BACK PAIN, SMALL THYROID NODULE. Environmental allergies/receives allergy shots. DOES NOT USE CPAP. 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 History of Any Multi-Drug Resistant Organisms: None Reported Past Surgical History: Adenoidectomy, Appendectomy, Cholecystectomy, Tonsillectomy, Tubal Ligation Additional Past Surgical History / Comment(s): Nasal Surgery(Fx), SINUS SURGERY W/ TONSILS. temo carpal tunnel surgery. Eye surgery. Colonoscopy 2022(next after 2yr). Past Anesthesia/Blood Transfusion Reactions: No Reported Reaction Past Psychological History: Anxiety Additional Psychological History / Comment(s): R/T STRESS. Smoking Status: Former smoker Past Alcohol Use History: None Reported Additional Past Alcohol Use History / Comment(s): Quit smoking in 2014, smoked since age 15, < 1 PPD. Past Drug Use History: None Reported Additional History: She is . She has not been sexually active for many years. She watches her 2 grandchildren several days each week. - Past Family History Mother Additional Family Medical History / Comment(s): Heart disease. Father Additional Family Medical History / Comment(s): BRAIN ANEURYSM Brother(s) Family Medical History: Cancer, Diabetes Mellitus Medications and Allergies Home Medications Medication Instructions Recorded Confirmed Type lisinopriL [Zestril] 15 mg PO QAM 11/27/13 01/05/23 History Omeprazole 20 mg PO BID 12/29/15 01/05/23 History Gabapentin [Neurontin] 800 mg PO TID 02/26/17 01/05/23 History Dicyclomine [Bentyl] 10 mg PO TID 04/29/17 01/05/23 History Magnesium Chloride [Slow-Mag] 128 mg PO DAILY 04/29/17 01/05/23 History Cyanocobalamin [Vitamin B-12] 500 mcg PO DAILY 11/28/18 01/05/23 History Cholecalciferol [Vitamin D3 (25 2,000 unit PO DAILY 01/23/19 01/05/23 History Mcg = 1000 Iu)] DULoxetine HCL [Cymbalta] 60 mg PO DAILY 02/03/20 01/05/23 History Ferrous Sulfate [Iron (65 MG 325 mg PO DAILY 02/03/20 01/05/23 History Elemental)] Montelukast [Singulair] 10 mg PO HS 02/03/20 01/05/23 History Pravastatin Sodium [Pravachol] 20 mg PO DAILY 02/05/20 01/05/23 History Albuterol Sulfate [Proair Hfa] 1 - 2 puff INHALATION Q6HR PRN 12/31/20 01/05/23 History EPINEPHrine (Auto Inject) [Epipen] 0.3 mg IM ONCE PRN 12/31/20 01/05/23 History Fluticasone Propionate [Flovent 2 puff INHALATION BID 12/31/20 01/05/23 History Hfa 220 mcg] Insulin Glargine [Lantus Vial] 36 unit SQ HS 12/31/20 01/05/23 History Repaglinide [Prandin] 0.5 mg PO AC-BRKFST 12/31/20 01/05/23 History Balsalazide Disodium [Colazal] 2,250 mg PO TID 06/20/22 01/05/23 History Semaglutide [Ozempic] 1 mg SQ FR 01/03/23 01/05/23 History dilTIAZem HCL [dilTIAZem HCL 24Hr 120 mg PO DAILY 01/03/23 01/05/23 History ER] metFORMIN HCL [Glucophage] 500 mg PO BID 01/03/23 01/05/23 History Allergies Allergy/AdvReac Type Severity Reaction Status Date / Time No Known Allergies Allergy Verified 10/23/23 16:09 Exam Vital Signs Temp Pulse Resp BP Pulse Ox 10/23/23 16:15 98.7 F 102 H 18 143/80 96 Intake and Output 10/23/23 10/23/23 10/23/23 06:59 14:59 22:59 Other: Weight 140.614 kg Height 5 feet 6 inches, weight 310 pounds, BMI 50.0. This is a well-developed well-nourished obese white female who is alert and oriented times 3 in no acute distress. HEENT: Within normal limits. NECK: Supple without mass or thyromegaly. CHEST AND LUNGS: Clear to auscultation. HEART: Regular rate and rhythm. BREASTS: Are without mass or discharge. AXILLARY EXAM: Negative for adenopathy. BACK: Negative for CVA tenderness. ABDOMEN: Soft, obese, nontender, without palpable masses. PELVIC EXAM: Normal external genitalia with minimal atrophy. Cervix and vagina appear normal with minimal atrophy. There is no unusual discharge. There is no evidence of prolapse. The uterus is midposition, nongravid size and nontender. There are no palpable adnexal masses or tenderness. Bimanual examination is somewhat limited secondary to her size. RECTAL EXAM: Rectovaginal exam is negative for mass or tenderness and is negative for occult blood. EXTREMITIES: Nontender. IMPRESSION: 1. 58-year-old menopausal female with normal gynecologic exam. 2. Multiple medical problems. 3. Obesity. PLAN: 1. Pap smear was deferred since she had a negative Pap smear cotest on 04/06/2021. 2. Self breast awareness was discussed with the patient. We have also discussed symptoms associated with inflammatory breast cancer. 3. Screening mammogram will be done today. 4. Osteoporosis prevention was discussed. She had a normal bone density test on 04/07/2020. We will plan on repeating this at age 62. 5. She was advised to return in one year for her annual well woman exam.
--- NOTE | 2023-10-24 13:21 | MM ---
Reason for Exam: Screening (asymptomatic). Last mammogram was performed 1 year(s) and 4 month(s) ago. Patient History: Menarche at age 14. First Full-Term at age 25. Postmenopausal. Risk Values: Vee 5 year model risk: 1.1%. NCI Lifetime model risk: 7.2%. Prior Study Comparison: 04/07/2020 Bilateral Screening Mammogram, [facility]. 04/06/2021 Bilateral Screening Mammogram, [facility]. 06/20/2022 Bilateral MG screening mammo w CAD, [facility]. Tissue Density: The breasts are almost entirely fatty. Findings: Analyzed By CAD. Right breast: There is no suspicious group of microcalcifications or new suspicious mass. Benign-appearing calcifications right breast. Left breast: There is no suspicious group of microcalcifications or new suspicious mass. Overall Assessment: Benign, BI-RAD 2 Management: Screening Mammogram of both breasts in [address] [facility] will attempt to contact patient to return for supplemental views and ultrasound if indicated. Patient should continue monthly self-breast exams. A clinical breast exam by your physician is recommended on an annual basis. This exam should not preclude additional follow-up of suspicious palpable abnormalities. Note on Vee scores and lifetime risk: 1. A Vee score greater than 3% is considered moderate risk. If this is the case, consider specialist referral to assess eligibility for a risk reducing agent. 2. If overall lifetime risk for the development of breast cancer is 20% or higher, the patient may qualify for future screening with alternating mammogram and breast MRI. Electronically signed and approved by: Felipe Dong DO
== END ==
LOC: WWCWWP 15:58
PROVIDERS: ATTEND Obstetrics & Gynecology
DX: Z12.31 Encounter for screening mammogram for malignant neoplasm of breast (principal); E66.9 Obesity, unspecified; R92.8 Other abnormal and inconclusive findings on diagnostic imaging of breast; R92.313 Mammographic fatty tissue density, bilateral breasts; Z78.0 Asymptomatic menopausal state; Z87.891 Personal history of nicotine dependence; Z68.43 Body mass index [BMI] 50.0-59.9, adult
CPT/HCPCS: 77067

== ENCOUNTER 2024-02-20 17:56 | Observation (INO) | payer MEDICARE ==
[2024-02-20 18:53] LABS: Basophils % (A) 0 %; Eosinophils # (A) 0.2 k/uL (0-0.7); Eosinophils % (A) 2 %; HGB 12.8 gm/dL (11.4-16.0); Lymphocytes # (A) 2.2 k/uL (1.0-4.8); Lymphocytes % (A) 24 %; MCH 26.7 pg (25.0-35.0); MCHC 32.9 g/dL (31.0-37.0); MCV 81.1 fL (80.0-100.0); Monocytes # (A) 0.3 k/uL (0-1.0); Monocytes % (A) 3 %; Neutrophils # (A) 6.4 k/uL (1.3-7.7); Neutrophils % (A) 69 %; Platelet Count 357 k/uL (150-450); RDW 14.4 % (11.5-15.5); WBC 9.3 k/uL (3.8-10.6)
[2024-02-20 19:05] LABS: Partial Thromboplastin Time 24.5 sec (22.0-30.0); Prothrombin Time 10.6 sec (10.0-12.5)
[2024-02-20 19:10] LABS: ALT 12 U/L (4-34); AST 20 U/L (14-36); African American GFR (CKD) >90 (>60 ml/min/1.73 sqM); Albumin 4.1 g/dL (3.5-5.0); Alkaline Phosphatase 109 U/L (38-126); Anion Gap 7 mmol/L; Blood Urea Nitrogen 9 mg/dL (7-17); Calcium 8.7 mg/dL (8.4-10.2); Carbon Dioxide 29 mmol/L (22-30); Chloride 98 mmol/L (98-107); Glucose 105 mg/dL (74-99); Magnesium 1.7 mg/dL (1.6-2.3); Non-African American GFR(CKD) >90 (>60 ml/min/1.73 sqM); Potassium 4.3 mmol/L (3.5-5.1); Sodium 134 mmol/L (137-145); Total Bilirubin 0.5 mg/dL (0.2-1.3); Total Protein 7.2 g/dL (6.3-8.2)
--- NOTE | 2024-02-20 19:35 | XR ---
EXAMINATION TYPE: XR chest 2V DATE OF EXAM: 02/20/2024 6:52 PM CLINICAL INDICATION: Female, 58 years old with history of Chest Pain; [facility] COMPARISON: Chest radiographs from 08/25/2016 TECHNIQUE: XR chest 2V Frontal and lateral views of the chest. FINDINGS: Lungs/Pleura: There is no evidence of pleural effusion, focal consolidation, or pneumothorax. Pulmonary vascularity: Unremarkable. Heart/mediastinum: Cardiomediastinal silhouette is unremarkable. Musculoskeletal: No acute osseous pathology. IMPRESSION: No acute cardiopulmonary disease/process. [facility] Brianda Mccrary, , 02/20/2024 7:32 PM
--- NOTE | 2024-02-20 20:53 | ED ---
Chest Pain HPI - General Chief Complaint: Chest Pain Stated Complaint: chest pain Time Seen by Provider: 02/20/24 20:07 Source: patient Mode of arrival: wheelchair Limitations: no limitations - History of Present Illness Initial Comments: 58-year-old female presenting with chief complaint of chest pain. Patient has had tightness in the center of her chest ongoing for about 3 days. It is a squeezing but dull pain she describes it as. No alleviating or aggravating factors. No radiation of the pain. Denies nausea, vomiting, dizziness, cough, congestion, sore throat, fever, chills. - Related Data Home Medications Medication Instructions Recorded Confirmed lisinopriL [Zestril] 15 mg PO DAILY 11/27/13 02/21/24 Omeprazole 20 mg PO AC-BID 12/29/15 02/21/24 Dicyclomine [Bentyl] 10 mg PO AC-TID 04/29/17 02/21/24 Magnesium Chloride [Slow-Mag] 64 mg PO BID 04/29/17 02/21/24 Cyanocobalamin [Vitamin B-12] 500 mcg PO DAILY 11/28/18 02/21/24 Ferrous Sulfate [Iron (65 MG 325 mg PO DAILY 02/03/20 02/21/24 Elemental)] Montelukast [Singulair] 10 mg PO HS 02/03/20 02/21/24 Pravastatin Sodium [Pravachol] 20 mg PO HS 02/05/20 02/21/24 Albuterol Sulfate [Proair Hfa] 2 puff INHALATION RT-QID PRN 12/31/20 02/21/24 EPINEPHrine (Auto Inject) [Epipen] 0.3 mg IM ONCE PRN 12/31/20 02/21/24 Balsalazide Disodium [Colazal] 2,250 mg PO TID 06/20/22 02/21/24 dilTIAZem HCL [dilTIAZem HCL 24Hr 120 mg PO DAILY 01/03/23 02/21/24 ER] Beclomethasone Dipropionate [Qvar 2 puff INHALATION RT-BID 02/21/24 02/21/24 80mcg Redihaler] Cholecalciferol (Vitamin D3) 50 mcg PO DAILY 02/21/24 02/21/24 [Vitamin D3 (50 Mcg = 2000 Iu)] DULoxetine HCL [Cymbalta] 60 mg PO DAILY 02/21/24 02/21/24 Gabapentin 800 mg PO TID 02/21/24 02/21/24 Insulin Glargine,Hum.rec.anlog 40 unit SQ HS 02/21/24 02/21/24 [Lantus Solostar Pen] Mirabegron [Myrbetriq] 50 mg PO DAILY 02/21/24 02/21/24 Omalizumab [Xolair] 300 mg SQ Q28D 02/21/24 02/21/24 Repaglinide [Prandin] 0.5 mg PO DAILY 02/21/24 02/21/24 Semaglutide [Ozempic] 2 mg SQ FR 02/21/24 02/21/24 Solifenacin Succinate [Vesicare] 5 mg PO DAILY 02/21/24 02/21/24 metFORMIN HCL ER [Glucophage XR] 500 mg PO BID 02/21/24 02/21/24 Previous Rx's Medication Instructions Recorded Metoprolol Succinate (ER) [Toprol 12.5 mg PO DAILY #30 tab 02/21/24 XL] Allergies Allergy/AdvReac Type Severity Reaction Status Date / Time No Known Allergies Allergy Verified 02/21/24 10:20 Review of Systems ROS Statement: Those systems with pertinent positive or pertinent negative responses have been documented in the HPI. ROS Other: All systems not noted in ROS Statement are negative. Past Medical History Past Medical History: Asthma, Diabetes Mellitus, GERD/Reflux, Hypertension, Sleep Apnea/CPAP/BIPAP Additional Past Medical History / Comment(s): Type 2 diabetes. NEUROPATHY LEGS & FEET. CROHNS DISEASE, IBS. HIATAL HERNIA. LOW BACK PAIN, SMALL THYROID NODULE. Environmental allergies/receives allergy shots. DOES NOT USE CPAP. 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 History of Any Multi-Drug Resistant Organisms: None Reported Past Surgical History: Adenoidectomy, Appendectomy, Cholecystectomy, Tonsillectomy, Tubal Ligation Additional Past Surgical History / Comment(s): Nasal Surgery(Fx), SINUS SURGERY W/ TONSILS. temo carpal tunnel surgery. Eye surgery. Colonoscopy 2022(next after 2yr). Past Anesthesia/Blood Transfusion Reactions: No Reported Reaction Past Psychological History: Anxiety Smoking Status: Former smoker Past Alcohol Use History: None Reported Past Drug Use History: None Reported - Past Family History Mother Additional Family Medical History / Comment(s): Heart disease. Father Additional Family Medical History / Comment(s): BRAIN ANEURYSM Brother(s) Family Medical History: Cancer, Diabetes Mellitus General Exam Limitations: no limitations General appearance: alert, in no apparent distress Head exam: Present: atraumatic, normocephalic Eye exam: Present: normal appearance, EOMI Neck exam: Present: normal inspection. Absent: meningismus Respiratory exam: Present: normal lung sounds bilaterally. Absent: respiratory distress, wheezes, rales, rhonchi, stridor Cardiovascular Exam: Present: regular rate, normal rhythm, normal heart sounds. Absent: systolic murmur, diastolic murmur, rubs, gallop, clicks Neurological exam: Present: alert, oriented X3 Psychiatric exam: Present: normal affect, normal mood Skin exam: Present: warm, dry Course Vital Signs 02/20/24 02/20/24 02/20/24 18:04 20:13 23:57 Temperature 98.1 F Pulse Rate 83 80 87 Respiratory 18 16 18 Rate Blood Pressure 117/75 115/90 131/91 O2 Sat by Pulse 98 98 96 Oximetry 02/21/24 03:56 Temperature Pulse Rate 89 Respiratory 18 Rate Blood Pressure 135/75 O2 Sat by Pulse 96 Oximetry Chest Pain MDM - MDM Was pt. sent in by a medical professional or institution (ANAI Quinn, SAFEKEEPING CLERK, urgent care, hospital, or prison...) When possible be specific @ -No Did you speak to anyone other than the patient for history (EMS, parent, family, police, friend...)? What history was obtained from this source @ -No Did you review nursing and triage notes (agree or disagree)? Why? @ -I reviewed and agree with nursing and triage notes Were old charts reviewed (outside hosp., previous admission, EMS record, old EKG, old radiological studies, urgent care reports/EKG's, prison records)? Report findings @ -No old charts were reviewed Differential Diagnosis (chest pain, altered mental status, abdominal pain women, abdominal pain men, vaginal bleeding, weakness, fever, dyspnea, syncope, he adache, dizziness, GI bleed, back pain, seizure, CVA, palpatations, mental health, musculoskeletal)? @ -MDM Differential Chest Pain: Stable Angina, Unstable Angina, STEMI, NSTEMI Aortic Dissection, Pneumothorax, Musculoskeletal, Esophageal Spasm GERD, Cholecystitis, Pancreatitis, Zoster This is not meant to be an all-inclusive list. EKG interpreted by me (3pts min.). @ -EKG shows sinus rhythm ventricular rate 80. CO interval 158. QRS 98. QT 361. QTc 397. No ST deviation. X-rays interpreted by me (1pt min.). @ -Chest x-ray shows no acute process CT interpreted by me (1pt min.). @ -None done U/S interpreted by me (1pt. min.). @ -None done What testing was considered but not performed or refused? (CT, X-rays, U/S, labs)? Why? @ -None What meds were considered but not given or refused? Why? @ -None Did you discuss the management of the patient with other professionals (professionals i.e. , PA, SAFEKEEPING CLERK, lab, RT, psych nurse, director social, beer merchant, teacher, space operations officer, case worker)? Give summary @ -I spoke with Alysha Gastelum from [facility] who accepts admission Was smoking cessation discussed for >3mins.? @ -No Was critical care preformed (if so, how long)? @ -No Were there social determinants of health that impacted care today? How? (Homelessness, low income, unemployed, alcoholism, drug addiction, transportation, low edu. Level, literacy, decrease access to med. care, correction, rehab)? @ -No Was there de-escalation of care discussed even if they declined (Discuss DNR or withdrawal of care, Hospice)? DNR status @ -No What co-morbidities impacted this encounter? (DM, HTN, Smoking, COPD, CAD, Cancer, CVA, ARF, Chemo, Hep., AIDS, mental health diagnosis, sleep apnea, morbid obesity)? @ -None Was patient admitted / discharged? Hospital course, mention meds given and route, prescriptions, significant lab abnormalities, going to OR and other pertinent info. @ -58-year-old female presenting with chief complaint of chest pain. Workup was initiated by triage and patient was later placed in a room and evaluated by myself. History and physical examination are conducted. Labs require no action. Chest x-ray showed no acute process and EKG shows sinus rhythm. On reassessment patient is resting comfortably showing no acute signs of distress. Patient is educated on today's findings. Given patient's multiple comorbidities including diabetes she will be admitted for observation with trending of troponins. She is agreeable with this plan. I discussed this case with my attending Dr. Emanuel Undiagnosed new problem with uncertain prognosis? @ -No Drug Therapy requiring intensive monitoring for toxicity (Heparin, Nitro, Insulin, Cardizem)? @ -No Were any procedures done? @ -No Diagnosis/symptom? @ -Chest pain Acute, or Chronic, or Acute on Chronic? @ -Acute Uncomplicated (without systemic symptoms) or Complicated (systemic symptoms)? @ -Complicated Side effects of treatment? @ -No Exacerbation, Progression, or Severe Exacerbation? @ -No Poses a threat to life or bodily function? How? (Chest pain, USA, PA, pneumonia, PE, COPD, DKA, ARF, appy, cholecystitis, CVA, Diverticulitis, Homicidal, Suicidal, threat to staff... and all critical care pts) @ -Yes Disposition Clinical Impression: Chest pain Disposition: ADMITTED IP TO THIS HOSP Condition: Fair Time of Disposition: 20:53
[2024-02-20] MEDS ORDERED: NALOXONE 0.4 MG/ML 1 ML VIAL IV PRN (20:57)
[2024-02-20] MEDS: ASPIRIN 81 MG PO STA (21:58)
[2024-02-21 05:52] LABS: Glucose,Whole Blood 151 mg/dL (70-110)
[2024-02-21] MEDS: ACETAMINOPHEN TAB 325 MG TAB PO PRN (06:46)
[2024-02-21 07:57] LABS: NT-Pro-B-Type Natriuretic Pept <20 pg/mL
[2024-02-21 09:54] VITALS: TEMP 97.5
[2024-02-21] MEDS: METOPROLOL SUCCINATE (ER) 25 MG TAB.ER.24H PO SCH (10:00)
[2024-02-21] MEDS: PRAVASTATIN SODIUM 20 MG TAB PO SCH (10:00)
[2024-02-21] MEDS: lisinopriL 10 MG TAB PO SCH (10:02)
[2024-02-21] MEDS: metFORMIN 500 MG TAB PO SCH (10:02)
--- NOTE | 2024-02-21 10:10 | CA ---
Transthoracic Echo Report Name: Neda Palacios Age: 58 Gender: F : 1965 Exam Date: 02/21/2024 08:37 Exam Location: [place] [facility] Ht (in): 66 Wt (lb): 307 Ordering Physician: Cachorro Sainz MD Attending/Referring Phys: William Ngo MD ([id number]) Lath Tier Lexii Hays RDCS Procedure CPT: Indications: Chest Pain Cardiac Hx: Technical Quality: Poor, Technically difficult study Contrast 1: Definity Total Dose (mL): 2 Contrast 2: Total Dose (mL): MEASUREMENTS (Male / Female) Normal Values 2D ECHO LV Diastolic Diameter PLAX 3.7 cm 4.2 - 5.9 / 3.9 - 5.3 cm LV Systolic Diameter PLAX 2.4 cm IVS Diastolic Thickness 1.2 cm 0.6 - 1.0 / 0.6 - 0.9 cm LVPW Diastolic Thickness 1.4 cm 0.6 - 1.0 / 0.6 - 0.9 cm LV Relative Wall Thickness 0.7 RV Internal Dim ED PLAX 1.6 cm LA Systolic Diameter LX 3.2 cm 3.0 - 4.0 / 2.7 - 3.8 cm M-MODE Aortic Root Diameter MM 3.0 cm LA Systolic Diameter MM 3.2 cm LA Ao Ratio MM 1.1 AV Cusp Separation MM 1.7 cm DOPPLER MV Area PHT 2.9 cm??? Mitral E Point Velocity 91.8 cm/s Mitral A Point Velocity 82.6 cm/s Mitral E to A Ratio 1.1 MV Deceleration Time 259.9 ms FINDINGS Left Ventricle Left ventricular ejection fraction is estimated at 60-65 %. Mildly increased septal wall thickness. Moderately increased posterior wall thickness. Normal left ventricular systolic function with no obvious regional wall motion abnormalities. Left ventricular cavity size normal. Right Ventricle Right ventricle not well visualized. Unable to estimate the right ventricular systolic pressure. Right Atrium Normal right atrial size. Left Atrium Mild left atrial dilatation. Mitral Valve Structurally normal mitral valve. Trace mitral regurgitation. No mitral stenosis. Aortic Valve Aortic valve not well visualized. No aortic stenosis. No aortic regurgitation. Tricuspid Valve Tricuspid valve not well visualized. No tricuspid stenosis. Trace tricuspid regurgitation. Pulmonic Valve Pulmonic valve not well visualized. Pericardium No pericardial or pleural effusion. Echo free space anterior to the right ventricle likely represents a fat pad. Aorta Normal size aortic root and proximal ascending aorta. CONCLUSIONS Normal LV size and systolic function. Echo contrast was used to enhance image quality. There is mild to moderate concentric LVH. Minimal mitral and tricuspid regurgitation. No pericardial effusion probable fat pad. Right- sided pressures are not well quantified. Previewed by: Dr. Dudley Ontiveros MD (Electronically Signed) Final Date: 21 February 2024 10:09
--- NOTE | 2024-02-21 10:20 | P.CRDCN ---
History of Present Illness History of present illness: HISTORY OF PRESENT ILLNESS: This is a 58-year-old female with a past medical history significant for hypertension, hyperlipidemia, diabetes, and morbid obesity. Patient follows in the office with Dr. Ngo. We have been asked to see the patient in consultation for chest pain. Patient examined at the bedside. Patient states she began to have pain yesterday in the middle of her chest. She states the pain was 8 dull type sensation and would last for a few seconds and then go away. She denied any radiation of the pain. She denied any shortness of breath. Denied dizziness or lightheadedness. Denied nausea or vomiting. She states the pain has continued to come and go over the last 24 hours. DIAGNOSTICS: - EKG reveals sinus mechanism with no signs of acute ischemia - Chest xray negative for acute process - Laboratory data: WBC 9.3. Hemoglobin 12.8. Platelet count 357. D-dimer 0.40. Sodium 134. Potassium 4.3. BUN 9. Creatinine 0.57. Troponin negative x 3. proBNP less than 20. TSH 1.610. - Current home cardiac medication list has not been updated at the time of d ictation - Echocardiogram obtained this admission reveals ejection fraction 60 to 65%, trace MR, trace TR - Cardiac catheterization history: January 2020 revealing normal coronary arteries and normal LVEDP REVIEW OF SYSTEMS: At the time of my exam: CONSTITUTIONAL: Denies fever or chills. HEENT: Denies blurred vision, vision changes, or eye pain. Denies hemoptysis CARDIOVASCULAR: Denies chest pain. Denies orthopnea. Denies PND. Denies palpitations RESPIRATORY: Denies shortness of breath. GASTROINTESTINAL: Denies abdominal pain. Denies nausea or vomiting. HEMATOLOGIC: Denies bleeding disorders. GENITOURINARY: Denies any blood in urine. SKIN: Denies pruitis. Denies rash. PHYSICAL EXAM: VITAL SIGNS: Reviewed. GENERAL: Well-developed in no acute distress. HEENT: Head is normocephalic. Pupils are equal, round. Sclerae anicteric. Mucous membranes of the mouth are moist. Neck supple. No JVD or thyromegaly LUNGS: Respirations even and unlabored. Lungs essentially clear to auscultation bilaterally. HEART: Regular rate and rhythm. S1 and S2 heard. ABDOMEN: Soft. Nondistended. Nontender. EXTREMITIES: Normal range of motion. No clubbing or cyanosis. Peripheral pulses intact. No lower extremity edema NEUROLOGIC: Awake and alert. Oriented x 3. ASSESSMENT: Chest pain, troponin negative x 3 Normal coronary arteries, per cardiac catheterization 01/2020 Hypertension Hyperlipidemia Diabetes Morbid obesity: BMI 49.6 PLAN: An acute coronary event has been ruled out 2D echo obtained and reviewed Resume home cardiac medications Patient may be discharged home today from a cardiac standpoint She is to follow-up postdischarge with Dr. Ngo Nurse practitioner note has been reviewed by physician. Signing provider agrees with the documented findings, assessment, and plan of care documented by THERMAL ENGINEER as a scribe. Past Medical History Past Medical History: Asthma, COPD, Diabetes Mellitus, GERD/Reflux, Hypertension, Sleep Apnea/CPAP/BIPAP Additional Past Medical History / Comment(s): Type 2 diabetes. NEUROPATHY LEGS & FEET. CROHNS DISEASE, IBS. HIATAL HERNIA. LOW BACK PAIN, SMALL THYROID NODULE. Environmental allergies/receives allergy shots. DOES NOT USE CPAP. 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 History of Any Multi-Drug Resistant Organisms: None Reported Past Surgical History: Adenoidectomy, Appendectomy, Cholecystectomy, Tonsillectomy, Tubal Ligation Additional Past Surgical History / Comment(s): Nasal Surgery(Fx), SINUS SURGERY W/ TONSILS. temo carpal tunnel surgery. Eye surgery. Colonoscopy 2022(next after 2yr). Past Anesthesia/Blood Transfusion Reactions: No Reported Reaction Past Psychological History: Anxiety Additional Psychological History / Comment(s): R/T STRESS. Smoking Status: Former smoker Past Alcohol Use History: None Reported Additional Past Alcohol Use History / Comment(s): Quit smoking in 2014, smoked since age 15, < 1 PPD. Past Drug Use History: None Reported - Past Family History Mother Additional Family Medical History / Comment(s): Heart disease. Father Additional Family Medical History / Comment(s): BRAIN ANEURYSM Brother(s) Family Medical History: Cancer, Diabetes Mellitus Medications and Allergies Home Medications Medication Instructions Recorded Confirmed Type lisinopriL [Zestril] 15 mg PO QAM 11/27/13 10/23/23 History Omeprazole 20 mg PO BID 12/29/15 10/23/23 History Gabapentin [Neurontin] 800 mg PO TID 02/26/17 10/23/23 History Dicyclomine [Bentyl] 10 mg PO TID 04/29/17 10/23/23 History Magnesium Chloride [Slow-Mag] 128 mg PO DAILY 04/29/17 10/23/23 History Cyanocobalamin [Vitamin B-12] 500 mcg PO DAILY 11/28/18 10/23/23 History Cholecalciferol [Vitamin D3 (25 2,000 unit PO DAILY 01/23/19 10/23/23 History Mcg = 1000 Iu)] DULoxetine HCL [Cymbalta] 60 mg PO DAILY 02/03/20 10/23/23 History Ferrous Sulfate [Iron (65 MG 325 mg PO DAILY 02/03/20 10/23/23 History Elemental)] Montelukast [Singulair] 10 mg PO HS 02/03/20 10/23/23 History Pravastatin Sodium [Pravachol] 20 mg PO DAILY 02/05/20 10/23/23 History Albuterol Sulfate [Proair Hfa] 1 - 2 puff INHALATION Q6HR PRN 12/31/20 10/23/23 History EPINEPHrine (Auto Inject) [Epipen] 0.3 mg IM ONCE PRN 12/31/20 10/23/23 History Fluticasone Propionate [Flovent 2 puff INHALATION BID 12/31/20 10/23/23 History Hfa 220 mcg] Insulin Glargine [Lantus Vial] 36 unit SQ HS 12/31/20 10/23/23 History Repaglinide [Prandin] 0.5 mg PO AC-BRKFST 12/31/20 10/23/23 History Balsalazide Disodium [Colazal] 2,250 mg PO TID 06/20/22 10/23/23 History Semaglutide [Ozempic] 1 mg SQ FR 01/03/23 10/23/23 History dilTIAZem HCL [dilTIAZem HCL 24Hr 120 mg PO DAILY 01/03/23 10/23/23 History ER] metFORMIN HCL [Glucophage] 500 mg PO BID 01/03/23 10/23/23 History Allergies Allergy/AdvReac Type Severity Reaction Status Date / Time No Known Allergies Allergy Verified 10/23/23 16:09 Physical Exam Vitals: Vital Signs Temp Pulse Pulse Resp BP BP BP 02/21/24 07:05 98.3 F 71 18 99/65 02/21/24 04:33 97.5 F L 89 18 117/78 02/21/24 03:56 89 18 135/75 02/20/24 23:57 87 18 131/91 02/20/24 20:13 80 16 115/90 02/20/24 18:04 98.1 F 83 18 117/75 Pulse Ox 02/21/24 07:05 95 02/21/24 04:33 94 L 02/21/24 03:56 96 02/20/24 23:57 96 02/20/24 20:13 98 02/20/24 18:04 98 Intake and Output 02/20/24 02/21/24 02/21/24 22:59 06:59 14:59 Intake Total 118 Balance 118 Intake: Oral 118 Other: Voiding Method Toilet Toilet # Voids 1 Weight 139.253 kg 139.253 kg Results 02/20/24 18:26 02/20/24 18:26 Cardiac Enzymes 02/20/24 02/20/24 02/20/24 Range/Units 18:26 18:26 21:19 AST 20 (14-36) U/L Troponin I <0.012 <0.012 (0.000-0.034) ng/mL 02/21/24 Range/Units 00:11 AST (14-36) U/L Troponin I <0.012 (0.000-0.034) ng/mL Coagulation 02/20/24 Range/Units 18:26 PT 10.6 (10.0-12.5) sec APTT 24.5 (22.0-30.0) sec CBC 02/20/24 Range/Units 18:26 WBC 9.3 (3.8-10.6) k/uL RBC 4.80 (3.80-5.40) m/uL Hgb 12.8 (11.4-16.0) gm/dL Hct 39.0 (34.0-46.0) % Plt Count 357 (150-450) k/uL Comprehensive Metabolic Panel 02/20/24 Range/Units 18:26 Sodium 134 L (137-145) mmol/L Potassium 4.3 (3.5-5.1) mmol/L Chloride 98 (98-107) mmol/L Carbon Dioxide 29 (22-30) mmol/L BUN 9 (7-17) mg/dL Creatinine 0.57 (0.52-1.04) mg/dL Glucose 105 H (74-99) mg/dL Calcium 8.7 (8.4-10.2) mg/dL AST 20 (14-36) U/L ALT 12 (4-34) U/L Alkaline Phosphatase 109 (38-126) U/L Total Protein 7.2 (6.3-8.2) g/dL Albumin 4.1 (3.5-5.0) g/dL Current Medications Generic Name Dose Route Start Last Admin Trade Name Freq PRN Reason Stop Dose Admin Acetaminophen 650 mg 02/20/24 20:57 02/21/24 06:46 Acetaminophen Tab 325 Mg Tab PO 650 mg Q6HR PRN Administration Mild Pain or Fever > 100.5 Lisinopril 10 mg 02/21/24 09:00 Lisinopril 10 Mg Tab PO DAILY MARY Metformin HCl 500 mg 02/21/24 08:15 Metformin 500 Mg Tab PO BID-W/MEALS [facility] Metoprolol Succinate 12.5 mg 02/21/24 09:00 Metoprolol Succinate (Er) 25 Mg Tab.Er.24h PO DAILY MARY Naloxone HCl 0.2 mg 02/20/24 20:57 Naloxone 0.4 Mg/Ml 1 Ml Vial IV Q2M PRN Opioid Reversal Pravastatin Sodium 20 mg 02/21/24 09:00 Pravastatin Sodium 20 Mg Tab PO DAILY [facility] Intake and Output 02/20/24 02/21/24 02/21/24 22:59 06:59 14:59 Intake Total 118 Balance 118 Intake: Oral 118 Other: Voiding Method Toilet Toilet # Voids 1 Weight 139.253 kg 139.253 kg 02/20/24 18:26 02/20/24 18:26
[2024-02-21 11:57] LABS: Glucose,Whole Blood 141 mg/dL (70-110)
--- NOTE | 2024-02-21 13:55 | P.DS ---
Providers Date of admission: 02/20/24 21:48 Discharge Diagnosis: Atypical chest pain Type 2 diabetes Peripheral neuropathy GERD Hypertension Hyperlipidemia Sleep apnea CPAP/BiPAP Anxiety Depression Crohn's disease Asthma COPD (no home O2) Obesity Hospital Course: Patient is a 58-year-old female with a PMH of hypertension, hyperlipidemia, type 2 diabetes, GERD, Crohn's disease, sleep apnea/CPAP/BiPAP, COPD (no home O2), asthma presenting with chest pain. She states she has had it for the past 3 to 4 days but says yesterday was at its worst. She describes the pain as a dull pain that comes and goes and varies in severity with no radiation to arms, back, jaw. She says the pain occurs while at rest or when she is exerting herself. She said the pain is not worse on exertion. She denies any exacerbating or relieving factors. She drove to the emergency department by her son. Admits to having a dry cough. She denies fever, chills, headache, blurry vision, shortness of breath, hemoptysis, abdominal pain, urinary symptoms. EKG independently interpreted displayed normal sinus rhythm, rate 80 bpm, QTc 3 97 ms CXR independently interpreted displayed no acute cardiopulmonary disease/process Troponins < 0.012 x 3, INR 1.0, glucose 151 T97.5 F, UT 89, RR 18, BP 117/78, O2 sat 94% on room Patient admitted for further workup of chest pain. Patient seen and examined at bedside. No acute events overnight. No acute complaints. Echocardiogram displayed normal LV size and systolic function. Ejection fraction of 60-65%. She was seen by document manager and was cleared from a cardiology standpoint, and is to follow-up with scheduled appointment. She is to follow-up with PCP. She has been discharged home. Vital signs reviewed and stable. Physical examination: Vital signs reviewed General: non toxic, no distress, appears at stated age, morbidly obese Derm: no unusual rashes/lesions, warm Head: atraumatic, normocephalic, symmetric Eyes: EOMI, anicteric sclera, pupils equal round reactive to light ENT: Nose and ears atraumatic Neck: No cervical lymphadenopathy, trachea midline, supple Mouth: no lip lesion, mucus membranes moist Cardiovascular: S1S2 reg, no murmur, positive dorsalis pedis pulse bilateral, no edema Lungs: CTA bilateral, no rhonchi, no rales, no accessory muscle use Abdominal: soft, nontender to palpation, no guarding Ext: muscle strength 5 out of 5 in all 4 extremities grossly, no gross muscle atrophy Neuro: CN II-XI grossly intact, no gross focal neuro deficits Psych: Alert, oriented to person, place, and time A total of greater than 30 minutes of time were spent preparing this complex discharge summary. Patient was discharge on February 21, 2024 at 1:21 PM. Expected date of discharge: 02/21/24 Attending physician: Janet Cheney Consults: 02/20/24 20:57 Consult Physician Urgent Consulting Provider: William Ngo Consult Reason/Comments: chest pain Do you want consulting provider notified?: Yes, Notify in am Primary care physician: Jeanine Peña Patient Condition at Discharge: Fair Plan - Discharge Summary Discharge Rx Participant: No New Discharge Prescriptions: New Metoprolol Succinate (ER) [Toprol XL] 12.5 mg PO DAILY #30 tab Continue lisinopriL [Zestril] 15 mg PO DAILY Omeprazole 20 mg PO AC-BID Dicyclomine [Bentyl] 10 mg PO AC-TID Magnesium Chloride [Slow-Mag] 64 mg PO BID Cyanocobalamin [Vitamin B-12] 500 mcg PO DAILY Ferrous Sulfate [Iron (65 MG Elemental)] 325 mg PO DAILY Montelukast [Singulair] 10 mg PO HS Pravastatin Sodium [Pravachol] 20 mg PO HS Albuterol Sulfate [Proair Hfa] 2 puff INHALATION RT-QID PRN PRN Reason: Shortness Of Breath dilTIAZem HCL [dilTIAZem HCL 24Hr ER] 120 mg PO DAILY DULoxetine HCL [Cymbalta] 60 mg PO DAILY Gabapentin 800 mg PO TID Insulin Glargine,Hum.rec.anlog [Lantus Solostar Pen] 40 unit SQ HS metFORMIN HCL ER [Glucophage XR] 500 mg PO BID Solifenacin Succinate [Vesicare] 5 mg PO DAILY EPINEPHrine (Auto Inject) [Epipen] 0.3 mg IM ONCE PRN PRN Reason: Anaphylaxis Balsalazide Disodium [Colazal] 2,250 mg PO TID Beclomethasone Dipropionate [Qvar 80mcg Redihaler] 2 puff INHALATION RT-BID Cholecalciferol (Vitamin D3) [Vitamin D3 (50 Mcg = 2000 Iu)] 50 mcg PO DAILY Mirabegron [Myrbetriq] 50 mg PO DAILY Omalizumab [Xolair] 300 mg SQ Q28D Repaglinide [Prandin] 0.5 mg PO DAILY Semaglutide [Ozempic] 2 mg SQ FR Discharge Medication List lisinopriL [Zestril] 15 mg PO DAILY 11/27/13 [History] Omeprazole 20 mg PO AC-BID 12/29/15 [History] Dicyclomine [Bentyl] 10 mg PO AC-TID 04/29/17 [History] Magnesium Chloride [Slow-Mag] 64 mg PO BID 04/29/17 [History] Cyanocobalamin [Vitamin B-12] 500 mcg PO DAILY 11/28/18 [History] Ferrous Sulfate [Iron (65 MG Elemental)] 325 mg PO DAILY 02/03/20 [History] Montelukast [Singulair] 10 mg PO HS 02/03/20 [History] Pravastatin Sodium [Pravachol] 20 mg PO HS 02/05/20 [History] Albuterol Sulfate [Proair Hfa] 2 puff INHALATION RT-QID PRN 12/31/20 [History] EPINEPHrine (Auto Inject) [Epipen] 0.3 mg IM ONCE PRN 12/31/20 [History] Balsalazide Disodium [Colazal] 2,250 mg PO TID 06/20/22 [History] dilTIAZem HCL [dilTIAZem HCL 24Hr ER] 120 mg PO DAILY 01/03/23 [History] Beclomethasone Dipropionate [Qvar 80mcg Redihaler] 2 puff INHALATION RT-BID 02/21/24 [History] Cholecalciferol (Vitamin D3) [Vitamin D3 (50 Mcg = 2000 Iu)] 50 mcg PO DAILY 02/21/24 [History] DULoxetine HCL [Cymbalta] 60 mg PO DAILY 02/21/24 [History] Gabapentin 800 mg PO TID 02/21/24 [History] Insulin Glargine,Hum.rec.anlog [Lantus Solostar Pen] 40 unit SQ HS 02/21/24 [History] Metoprolol Succinate (ER) [Toprol XL] 12.5 mg PO DAILY #30 tab 10/24/24 [Rx] Mirabegron [Myrbetriq] 50 mg PO DAILY 02/21/24 [History] Omalizumab [Xolair] 300 mg SQ Q28D 02/21/24 [History] Repaglinide [Prandin] 0.5 mg PO DAILY 02/21/24 [History] Semaglutide [Ozempic] 2 mg SQ FR 02/21/24 [History] Solifenacin Succinate [Vesicare] 5 mg PO DAILY 02/21/24 [History] metFORMIN HCL ER [Glucophage XR] 500 mg PO BID 02/21/24 [History] Follow up Appointment(s)/Referral(s): William Ngo MD [STAFF PHYSICIAN] - 02/28/24 4:00 pm Jeanine Peña MD [Primary Care Provider] - 1-2 days Patient Instructions/Handouts: Chest Pain (DC) Discharge Disposition: HOME SELF-CARE
--- NOTE | 2024-02-21 13:56 | P.HPIM ---
History of Present Illness H&P Date: 02/21/24 Chief Complaint: chest pain Patient is a 58-year-old female with a PMH of hypertension, hyperlipidemia, type 2 diabetes, GERD, Crohn's disease, sleep apnea/CPAP/BiPAP, COPD (no home O2), asthma presenting with chest pain. She states she has had it for the past 3 to 4 days but says yesterday was at its worst. She describes the pain as a dull pain that comes and goes and varies in severity with no radiation to arms, back, jaw. She says the pain occurs while at rest or when she is exerting herself. She said the pain is not worse on exertion. She denies any exacerbating or relieving factors. She drove to the emergency department by her son. Admits to having a dry cough. She denies fever, chills, headache, blurry vision, shortness of breath, hemoptysis, abdominal pain, urinary symptoms. EKG independently interpreted displayed normal sinus rhythm, rate 80 bpm, QTc 397 ms CXR independently interpreted displayed no acute cardiopulmonary disease/process Troponins < 0.012 x 3, INR 1.0, glucose 151 T97.5 F, TN 89, RR 18, BP 117/78, O2 sat 94% on room ED documentation reviewed. Review of systems: Pertinent positives and negatives as discussed in HPI, a complete review of systems was performed and all other systems are negative. Social history: Tobacco: Former [id number] smoker, quit 10 years ago Alcohol: Rarely on occasion Recreational drugs: Denies illicit drug use Travel: No recent travel Occupation: On disability Physical examination: Vital signs reviewed General: non toxic, no distress, appears at stated age, morbidly obese Derm: no unusual rashes/lesions, warm Head: atraumatic, normocephalic, symmetric Eyes: EOMI, anicteric sclera, pupils equal round reactive to light ENT: Nose and ears atraumatic Neck: No cervical lymphadenopathy, trachea midline, supple Mouth: no lip lesion, mucus membranes moist Cardiovascular: S1S2 reg, no murmur, positive dorsalis pedis pulse bilateral, no edema Lungs: CTA bilateral, no rhonchi, no rales, no accessory muscle use Abdominal: soft, nontender to palpation, no guarding Ext: muscle strength 5 out of 5 in all 4 extremities grossly, no gross muscle atrophy Neuro: CN II-XI grossly intact, no gross focal neuro deficits Psych: Alert, oriented to person, place, and time Assessment/Plan: Patient is a 58-year-old female with a PMH of hypertension, type 2 diabetes, GERD, sleep apnea/CPAP/BiPAP, asthma presenting with chest pain. #. Atypical chest pain Troponins < 0.012 x 3 EKG independently interpreted displayed normal sinus rhythm, rate 80 bpm, QTc 397 ms CXR independently interpreted displayed no acute cardiopulmonary disease/process proBNP, D-dimer, TSH, A1c, lipid panel ordered Echocardiogram ordered Cardiac monitoring Was given aspirin 325 once by ED, continue with 81 mg PO daily Resume home pravastatin 20 mg PO daily pain management: Tylenol tab 650 mg p.o. every 6 HR as needed Cardiology consulted #. Type 2 diabetes with neuropathy Placed on home metformin bicarb Accu-Cheks, monitor for hypoglycemia #. Benign Essential hypertension Resume home metoprolol 12.5 mg p.o. daily Continue home lisinopril 10 mg p.o. daily #. Anxiety depression Reconcile home meds for all chronic conditions once approved by pharmacy. F: N/A E: Replete electrolytes as N: Heart healthy diet A: Ambulates with cane DVT prophylaxis: Lovenox 40 SQ daily The patient is admitted with an anticipated less than 2 midnight stay for evaluation of atypical chest pain. CODE STATUS: Full code Discussed with: Patient Anticipated discharge place: Home Past Medical History Past Medical History: Asthma, COPD, Diabetes Mellitus, GERD/Reflux, Hypertension, Sleep Apnea/CPAP/BIPAP Additional Past Medical History / Comment(s): Type 2 diabetes. NEUROPATHY LEGS & FEET. CROHNS DISEASE, IBS. HIATAL HERNIA. LOW BACK PAIN, SMALL THYROID NODULE. Environmental allergies/receives allergy shots. DOES NOT USE CPAP. 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 History of Any Multi-Drug Resistant Organisms: None Reported Past Surgical History: Adenoidectomy, Appendectomy, Cholecystectomy, Tonsillectomy, Tubal Ligation Additional Past Surgical History / Comment(s): Nasal Surgery(Fx), SINUS SURGERY W/ TONSILS. temo carpal tunnel surgery. Eye surgery. Colonoscopy 2022(next after 2yr). Past Anesthesia/Blood Transfusion Reactions: No Reported Reaction Past Psychological History: Anxiety Additional Psychological History / Comment(s): R/T STRESS. Smoking Status: Former smoker Past Alcohol Use History: None Reported Additional Past Alcohol Use History / Comment(s): Quit smoking in 2014, smoked since age 15, < 1 PPD. Past Drug Use History: None Reported - Past Family History Mother Additional Family Medical History / Comment(s): Heart disease. Father Additional Family Medical History / Comment(s): BRAIN ANEURYSM Brother(s) Family Medical History: Cancer, Diabetes Mellitus Medications and Allergies Home Medications Medication Instructions Recorded Confirmed Type lisinopriL [Zestril] 15 mg PO DAILY 11/27/13 02/21/24 History Omeprazole 20 mg PO AC-BID 12/29/15 02/21/24 History Dicyclomine [Bentyl] 10 mg PO AC-TID 04/29/17 02/21/24 History Magnesium Chloride [Slow-Mag] 64 mg PO BID 04/29/17 02/21/24 History Cyanocobalamin [Vitamin B-12] 500 mcg PO DAILY 11/28/18 02/21/24 History Ferrous Sulfate [Iron (65 MG 325 mg PO DAILY 02/03/20 02/21/24 History Elemental)] Montelukast [Singulair] 10 mg PO HS 02/03/20 02/21/24 History Pravastatin Sodium [Pravachol] 20 mg PO HS 02/05/20 02/21/24 History Albuterol Sulfate [Proair Hfa] 2 puff INHALATION RT-QID PRN 12/31/20 02/21/24 History EPINEPHrine (Auto Inject) [Epipen] 0.3 mg IM ONCE PRN 12/31/20 02/21/24 History Balsalazide Disodium [Colazal] 2,250 mg PO TID 06/20/22 02/21/24 History dilTIAZem HCL [dilTIAZem HCL 24Hr 120 mg PO DAILY 01/03/23 02/21/24 History ER] Beclomethasone Dipropionate [Qvar 2 puff INHALATION RT-BID 02/21/24 02/21/24 History 80mcg Redihaler] Cholecalciferol (Vitamin D3) 50 mcg PO DAILY 02/21/24 02/21/24 History [Vitamin D3 (50 Mcg = 2000 Iu)] DULoxetine HCL [Cymbalta] 60 mg PO DAILY 02/21/24 02/21/24 History Gabapentin 800 mg PO TID 02/21/24 02/21/24 History Insulin Glargine,Hum.rec.anlog 40 unit SQ HS 02/21/24 02/21/24 History [Lantus Solostar Pen] Metoprolol Succinate (ER) [Toprol 12.5 mg PO DAILY #30 tab 02/21/24 Rx XL] Mirabegron [Myrbetriq] 50 mg PO DAILY 02/21/24 02/21/24 History Omalizumab [Xolair] 300 mg SQ Q28D 02/21/24 02/21/24 History Repaglinide [Prandin] 0.5 mg PO DAILY 02/21/24 02/21/24 History Semaglutide [Ozempic] 2 mg SQ FR 02/21/24 02/21/24 History Solifenacin Succinate [Vesicare] 5 mg PO DAILY 02/21/24 02/21/24 History metFORMIN HCL ER [Glucophage XR] 500 mg PO BID 02/21/24 02/21/24 History Allergies Allergy/AdvReac Type Severity Reaction Status Date / Time No Known Allergies Allergy Verified 02/21/24 10:20 Physical Exam Vitals: Vital Signs Temp Pulse Pulse Resp BP BP Pulse Ox 02/21/24 04:33 97.5 F L 89 18 117/78 94 L 02/21/24 03:56 89 18 135/75 96 02/20/24 23:57 87 18 131/91 96 02/20/24 20:13 80 16 115/90 98 02/20/24 18:04 98.1 F 83 18 117/75 98 Intake and Output 02/20/24 02/21/24 02/21/24 22:59 06:59 14:59 Other: Voiding Method Toilet # Voids 1 Weight 139.253 kg 139.253 kg Results CBC & Chem 7: 02/20/24 18:26 02/20/24 18:26 Labs: Abnormal Lab Results - Last 24 Hours (Table) 02/20/24 02/21/24 Range/Units 18:26 05:51 Sodium 134 L (137-145) mmol/L Glucose 105 H (74-99) mg/dL POC Glucose (mg/dL) 151 H (70-110) mg/dL Thrombosis Risk Factor Assmnt - Choose All That Apply Each Factor Represents 1 point: Age 41-60 years, Obesity (BMI >25) Thrombosis Risk Factor Assessment Total Risk Factor Score: 2 Thrombosis Risk Factor Assessment Level: Low Risk
[2024-02-21 14:05] VITALS: BP 153/84; PULSE 93; RESP 18
[2024-02-21 16:39] LABS: LDL Cholesterol,Calculated 87.7 mg/dL (0.0-131.0); VLDL Calculation 17.36 mg/dL (5.00-40.00)
== END 2024-02-21 14:20 | disposition home or self-care (01) ==
LOC: EC 17:56 → 6NMEDSUR 21:48
PROVIDERS: ADMIT Hospitalist; ATTEND Hospitalist
DX: R07.89 Other chest pain (principal); E11.40 Type 2 diabetes mellitus with diabetic neuropathy, unspecified; J44.0 Chronic obstructive pulmonary disease with (acute) lower respiratory infection; K50.90 Crohn's disease, unspecified, without complications; J44.9 Chronic obstructive pulmonary disease, unspecified; E66.01 Morbid (severe) obesity due to excess calories; E78.5 Hyperlipidemia, unspecified; G47.30 Sleep apnea, unspecified; K21.9 Gastro-esophageal reflux disease without esophagitis; I10 Essential (primary) hypertension; F41.9 Anxiety disorder, unspecified; F32.A Depression, unspecified; Z68.42 Body mass index [BMI] 45.0-49.9, adult; Z79.4 Long term (current) use of insulin; Z79.84 Long term (current) use of oral hypoglycemic drugs; Z79.51 Long term (current) use of inhaled steroids; Z79.899 Other long term (current) drug therapy; Z87.891 Personal history of nicotine dependence
CPT/HCPCS: 99285; 36415; 93005; 93306; 85379; 83880; 80061; 80053; 84443; 83735; 84484 ×2; 85025; 85610; 85730; 83036; 71046; G0378 ×2; Q9957

== ENCOUNTER → 2024-04-04 | Outpatient (CLI) | payer MEDICARE, OTHER ==
--- NOTE | 2024-04-04 18:34 | CTL ---
EXAMINATION TYPE: CT Low Dose Lung DATE OF EXAM: 04/04/2024 5:58 PM COMPARISON: None. CLINICAL INDICATION: Female, 58 years old with history of Z12.2 LUNG CA SCR Z87.891 FORMER SMOKER; fo rmer smoker, history of tobacco use. TECHNIQUE: Multiple axial non-contrast scans were obtained from approximately the lung apices through the upper abdomen. Coronal and sagittal reformatted images were obtained. Low dose technique was uti lized. MIP were created on a separate workstation and submitted for review. CT DLP: 151.3 mGycm, Automated exposure control for dose reduction was used. CT Contrast: Contrast used: None Oral contrast used: None FINDINGS: Lack of intravenous contrast and low dose technique limits the evaluation of the vascular and soft ti ssue structures. LUNGS: No evidence of pulmonary fibrosis. No evidence of focal consolidation, pneumothorax or pleural effusion. Centrilobular emphysema changes. Nodules: RUL: None. RML: None. RLL: None. TERRI: None. LLL: None. AIRWAY: Patent and unremarkable. HEART: Size within normal limits. MEDIASTINUM: No gross evidence of adenopathy. VASCULATURE: No aortic aneurysm. MUSCULOSKELETAL: No acute osseous abnormalities SOFT TISSUES/LYMPH NODES: Unremarkable. LOWER NECK: No significant findings. UPPER ABDOMEN: Gallbladder surgically absent. IMPRESSION: 1. No clinically significant pulmonary nodules. 2. Mild emphysema. CT LUNG RAD AND CT CHEST RECOMMENDATION: Lung-Rad 1 Negative: Continue annual screening with LDCT in 12 months. S Modifier (other clinically significant findings): None Recommend smoking cessation (if current smoker), or continuation of smoking cessation (if prior smoke r). Annual screening for lung cancer with low-dose computed tomography is recommended in adults ages 55 to 77 years who have a 30 pack-year smoking history and currently smoke or have quit within the pa st 15 years. Screening should be discontinued once a person has not smoked for 15 years or develops a health problem that substantially limits life expectancy or the ability or willingness to have curat lang lung surgery. Lung rads 2021 [email or web address] [email or web address], , 04/04/2024 6:32 PM
== END | disposition home or self-care (01) ==
LOC: RADCTMAIN 17:22
PROVIDERS: ATTEND Family Medicine
DX: Z12.2 Encounter for screening for malignant neoplasm of respiratory organs (principal); J43.2 Centrilobular emphysema; Z87.891 Personal history of nicotine dependence
CPT/HCPCS: 71271